=== PATIENT | female | born 1945 | race Caucasian/White ===

== ENCOUNTER 2016-11-10 11:26 | Observation (INO) | payer MEDICARE, OTHER ==
[2016-11-10] MEDS ORDERED: Sodium Chloride 0.9% 1000 ML 1,000 ML IV STA (13:36)
[2016-11-10] MEDS ORDERED: Zofran 4 MG/2 ML VIAL IV PRN (13:36)
[2016-11-10 14:16] LABS: BASOPHIL % 0.3 % (0.0-0.4); Eosinophil % 1.2 % (0.00-5.0); Granulocytes % 64.2 % (36.0-66.0); Lymphocytes % 26.5 % (24.0-44.0); Mean Cell Volume 90.2 fl (78-100); Mean Corpuscular Hemoglobin 29.6 pg (26-32); Mean Platelet Volume 10.6 fl (6-9.5); Monocytes % 7.8 % (0.0-12.0); Platelet Count 288 K/mm3 (150-450); Red Cell Distribution Width 13.7 % (11.5-14.0); White Blood Count 6.9 K/mm3 (4.0-10.5)
[2016-11-10 14:44] LABS: ALKALINE PHOSPHATASE 94 U/L (46-116); ANION GAP 14.1 MEQ/L (5-15); BLOOD UREA NITROGEN 15 mg/dL (9-20); CHLORIDE 107 mEq/L (98-107); Carbon Dioxide 25.6 mEq/L (21-32); Glucose 93 MG/DL (70-110); LIPASE 187 U/L (73-393); Potassium 3.4 mEq/L (3.5-5.1); SGOT/AST 22 U/L (15-37); SGPT/ALT 28 U/L (12-78); SODIUM 143 mEq/L (136-145); Total Protein 7.1 gm/dL (6.4-8.2)
[2016-11-10] MEDS: MORPHINE SULFATE 2 MG INJ IV PRN ×2 (14:46→17:44)
[2016-11-10] MEDS ORDERED: NAPROXEN SODIUM 220 MG PO PRN (15:35)
[2016-11-10] MEDS ORDERED: CLARITIN 10 MG PO PRN (15:35)
[2016-11-10] MEDS ORDERED: Naprosyn 500 MG PO PRN (15:46)
[2016-11-10] MEDS ORDERED: MEDICATION INTERVENTION MC PRN (15:49)
--- NOTE | 2016-11-10 15:58 | XRAY ---
Indication: Pelvic pain. Hysterectomy. Two-dimensional transabdominal pelvic ultrasound was performed. Comparison: None Uterus and ovaries are not seen consistent with patient's surgical history. No suspicious solid/cystic mass or free fluid. Urinary bladder unremarkable with prevoid volume 248 cc and postvoid volume 23 cc. Impression: Negative pelvic ultrasound with total hysterectomy.
[2016-11-10 16:02] LABS: Bilirubin NEGATIVE (NEGATIVE); Blood NEGATIVE Ery/ul (0-5); COMPLETE URINE MICROSCOPIC? NO; Collection Type CLEAN CATCH; Glucose NEGATIVE (NEGATIVE); Leukocyte Esterase NEGATIVE (NEGATIVE)
--- NOTE | 2016-11-10 16:06 | XRAY ---
Indication: Lower abdominal pain. Burning sensation. Multiple contiguous axial images obtained through the abdomen and pelvis using 80 cc Isovue 370 contrast only. Comparison: None Lung bases demonstrates minimal bilateral dependent atelectasis and left base calcified granuloma. Heart is not enlarged. Noncontrasted stomach and bowel loops appear nonobstructed. Mild fluid distended small and large bowel loops with synchronous fluid leveling, ileus versus enterocolitis. Minimal sigmoid diverticulosis. Previous reported appendectomy and hysterectomy. No free fluid/air. A few calcified splenic granulomas. Remaining liver, gallbladder, pancreas, spleen, adrenal glands, kidneys, ureters, bladder, and aorta appear unremarkable. No pathologic retroperitoneal lymphadenopathy. Osseous structures intact with minimal lumbar degenerative changes. Tiny fatty umbilical hernia. Impression: 1. Fluid distended small and large bowel loops with synchronous fluid leveling, ileus versus enterocolitis. 2. Incidental sigmoid diverticulosis and tiny fatty umbilical hernia. 3. Remaining CT abdomen/pelvis with contrast exam is negative. CTDI 13.89
[2016-11-10] MEDS: Sodium Chloride 0.9% 1000 ML 1,000 ML IV SCH ×2 (16:37→23:43)
[2016-11-10] MEDS: Topamax 100 MG PO SCH (21:39)
[2016-11-10] MEDS: MILK OF MAGNESIA 30 ML PO SCH (21:43)
[2016-11-10] MEDS: Cleocin Phosphate IV 300 MG/50 ML*** 300 MG/50 ML IVPB IV SCH (23:44)
[2016-11-11] MEDS: FLAGYL 500 MG IVPB 500 MG/100 ML BAG IV SCH ×5 (00:21→23:52)
[2016-11-11] MEDS: Cleocin Phosphate IV 300 MG/50 ML*** 300 MG/50 ML IVPB IV SCH ×3 (05:08→18:42)
[2016-11-11] MEDS: Topamax 100 MG PO SCH ×2 (09:41→22:04)
[2016-11-11] MEDS ORDERED: Ativan 1 MG PO SCH (10:00)
[2016-11-11] MEDS ORDERED: Miralax Powder 17GM PACKET PO SCH (10:00)
[2016-11-11] MEDS ORDERED: Protonix 40MG Tablet PO SCH (10:00)
[2016-11-11] MEDS ORDERED: CHOLECALCIFEROL PO SCH (10:00)
[2016-11-11] MEDS ORDERED: VIT K2 PO SCH (10:00)
[2016-11-11] MEDS ORDERED: VITAMIN D PO SCH (10:00)
[2016-11-11] MEDS ORDERED: [UNRECOGNIZED DRUG - OTHER] PO SCH (10:00)
--- NOTE | 2016-11-11 14:05 | PCM.NOTE ---
Date and Time: 11/11/16 1404 Subjective Assessment: c/o diarrhea - Review of Systems Constitutional: No Fever, No Chills Eyes: No Symptoms Ears, Nose, & Throat: No Symptoms Respiratory: No Cough, No Short Of Breath Cardiac: No Chest Pain, No Edema, No Syncope Abdominal/Gastrointestinal: Abdominal Pain, Diarrhea, No Nausea, No Vomiting Genitourinary Symptoms: No Dysuria Musculoskeletal: No Back Pain, No Neck Pain Skin: No Rash Neurological: No Dizziness, No Focal Weakness, No Sensory Changes Psychological: No Symptoms Endocrine: No Symptoms Hematologic/Lymphatic: No Symptoms Immunological/Allergic: No Symptoms Objective Exam General Appearance: no apparent distress, alert Neurologic Exam: alert, oriented x 3, cooperative, normal mood/affect, nml cerebellar function, sensation nml, No motor deficits Skin Exam: normal color, warm, dry Eye Exam: PERRL, EOMI, eyes nml inspection Ears, Nose, Throat Exam: normal ENT inspection, pharynx normal, moist mucous membranes Neck Exam: normal inspection, non-tender, supple, full range of motion Respiratory Exam: normal breath sounds, lungs clear, No respiratory distress Cardiovascular Exam: regular rate/rhythm, normal heart sounds Gastrointestinal/Abdomen Exam: soft, No tenderness, No mass Extremity Exam: normal inspection, normal range of motion Back Exam: normal inspection, normal range of motion, No CVA tenderness, No vertebral tenderness Pelvic Exam: deferred Rectal Exam: deferred OBJECTIVE DATA Vital Signs: Vital Signs - 24 hr Temp Pulse Resp BP Pulse Ox 11/11/16 11:24 97.9 F 74 18 101/56 93 L 11/11/16 07:33 97.8 F 66 16 98/55 93 L 11/11/16 04:00 97.6 F 64 12 98/56 94 L 11/11/16 00:31 97.8 F 65 18 89/53 94 L 11/10/16 20:20 98.3 F 82 18 107/55 96 11/10/16 16:00 97.8 F 66 18 134/70 93 L Pain Assessment - Last Documented Pain Intensity 2 Pain Scale Used 0-10 Pain Scale Intake and Output: Intake & Output 11/09/16 11/10/16 11/11/16 11/12/16 11:59 11:59 11:59 11:59 Intake Total 3440 360 Output Total 1500 Balance 1940 360 Weight 64.637 kg Lab Results: Lab Results-Last 24 Hours 11/10/16 11/10/16 11/10/16 Range/Units 13:55 13:55 15:48 WBC 6.9 (4.0-10.5) K/mm3 RBC 4.70 (4.1-5.4) M/mm3 Hgb 13.9 (12.0-16.0) gm/dl Hct 42.4 (35-47) % MCV 90.2 (78-100) fl MCH 29.6 (26-32) pg MCHC 32.8 (32-36) g/dl RDW 13.7 (11.5-14.0) % Plt Count 288 (150-450) K/mm3 MPV 10.6 H (6-9.5) fl Gran % 64.2 (36.0-66.0) % Lymphocytes % 26.5 (24.0-44.0) % Monocytes % 7.8 (0.0-12.0) % Eosinophils % 1.2 (0.00-5.0) % Basophils % 0.3 (0.0-0.4) % Basophils # 0.02 (0-0.4) Sodium 143 (136-145) mEq/L Potassium 3.4 L (3.5-5.1) mEq/L Chloride 107 (98-107) mEq/L Carbon Dioxide 25.6 (21-32) mEq/L Anion Gap 14.1 (5-15) MEQ/L BUN 15 (9-20) mg/dL Creatinine 0.73 (0.55-1.30) mg/dl Estimated GFR > 60 ML/MIN Glucose 93 (70-110) MG/DL Calcium 9.6 (8.5-10.1) mg/dL Total Bilirubin 0.80 (0.2-1.0) mg/dL AST 22 (15-37) U/L ALT 28 (12-78) U/L Alkaline Phosphatase 94 (46-116) U/L Serum Total Protein 7.1 (6.4-8.2) gm/dL Albumin 4.0 (3.4-5.0) g/dL Amylase 50 (25-115) U/L Lipase 187 (73-393) U/L Ur Collection Type CLEAN CATCH Urine Color YELLOW (YELLOW) Urine Appearance CLEAR (CLEAR) Urine pH 8.0 (5-6) Ur Specific [place] 1.005 (1.005-1.025) Urine Protein NEGATIVE (Negative) Urine Ketones NEGATIVE (NEGATIVE) Urine Blood NEGATIVE (0-5) Pankaj/ul Urine Nitrite NEGATIVE (NEGATIVE) Urine Bilirubin NEGATIVE (NEGATIVE) Urine Urobilinogen NORMAL (0-1) mg/dL Ur Leukocyte Esterase NEGATIVE (NEGATIVE) Urine Glucose NEGATIVE (NEGATIVE) mg/dL Specimen Received 11/10/16 1448 Radiology Exams: Radiology Procedures Category Date Time Status ABDOMEN AND PELVIS W CONTRAST [CT] Stat Exams 11/10/16 13:36 Completed PELVIC [US] Stat Exams 11/10/16 Completed Assessment/Plan (1) Diarrhea Current Visit: Yes Status: Acute Qualifiers: Diarrhea type: infectious Qualified Code(s): A09 - Infectious gastroenteritis and colitis, unspecified Code(s): R19.7 - DIARRHEA, UNSPECIFIED (2) Abdominal pain Current Visit: Yes Status: Acute Qualifiers: Abdominal location: generalized Qualified Code(s): R10.84 - Generalized abdominal pain Code(s): R10.9 - UNSPECIFIED ABDOMINAL PAIN
[2016-11-11] MEDS: Sodium Chloride 0.9% 1000 ML 1,000 ML IV SCH (16:15)
[2016-11-11] MEDS: MILK OF MAGNESIA 30 ML PO SCH (22:04)
[2016-11-12] MEDS: Cleocin Phosphate IV 300 MG/50 ML*** 300 MG/50 ML IVPB IV SCH ×2 (00:40→06:32)
[2016-11-12] MEDS: Sodium Chloride 0.9% 1000 ML 1,000 ML IV SCH (02:42)
[2016-11-12 04:31] VITALS: BP 102/57; PULSE 71; O2SAT 93
[2016-11-12] MEDS: FLAGYL 500 MG IVPB 500 MG/100 ML BAG IV SCH (05:35)
--- NOTE | 2016-11-12 07:19 | PCM.DS ---
Discharge Summary Date of Admission: 11/10/16 11:26 Admitting Physician: KINSEY HART Primary Care Provider: KINSEY HART Allergies Allergies amoxicillin trihydrate [From Augmentin] Allergy (Verified 07/05/15 01:27) Penicillins Allergy (Verified 07/05/15 01:27) potassium clavulanate [From Augmentin] Allergy (Verified 07/05/15 01:27) Sulfa (Sulfonamide Antibiotics) Allergy (Verified 07/05/15 01:27) Hospital Summary - Hospital Course Hospital Course: Chief Complaint Diagnosis ABDOMEN PAIN Allergies Allergy/AdvReac Type Severity Reaction Status Date / Time amoxicillin trihydrate Allergy Verified 07/05/15 01:27 [From Augmentin] Penicillins Allergy Verified 07/05/15 01:27 potassium clavulanate Allergy Verified 07/05/15 01:27 [From Augmentin] Sulfa (Sulfonamide Allergy Verified 07/05/15 01:27 Antibiotics) Vital Signs (Last 24 hours) Temp Pulse Resp BP Pulse Ox 11/12/16 04:00 97.8 F 71 19 102/57 93 L 11/11/16 23:51 98.0 F 86 17 94/50 92 L 11/11/16 20:00 98.0 F 80 17 101/55 93 L 11/11/16 15:49 97.5 F 72 18 111/69 94 L 11/11/16 11:24 97.9 F 74 18 101/56 93 L 11/11/16 07:33 97.8 F 66 16 98/55 93 L Home Medications Medication Instructions Recorded Confirmed Last Taken Type Cholecalciferol (Vitd3)/Vit K2 [D3 1 tab PO DAILY 11/10/16 11/10/16 11/10/16 History + K2 Dots 1,000 Units Tab] Loratadine 10 mg [Claritin 10 10 mg PO DAILY PRN 11/10/16 11/10/16 Unknown History mg] Lorazepam 1 mg [Ativan 1 MG] 1 - 2 mg PO DAILY 11/10/16 11/10/16 11/10/16 History Magnesium Hydroxide 30 ml [Milk 30 - 60 ml PO QHS 11/10/16 11/10/16 11/09/16 History of Magnesia 30 ml] Melatonin 3 mg PO QHS 11/10/16 11/10/16 11/09/16 History Naproxen Sodium 220 mg [Aleve 2 tab PO DAILY PRN PRN 11/10/16 11/10/16 Unknown History 220 MG] PANTOPRAZOLE 40 mg Tablet 40 mg PO DAILY 11/10/16 11/10/16 11/10/16 History [Protonix 40MG Tablet] Polyethylene Glycol 3350 17 gm 1 packet PO QAM 11/10/16 11/10/16 11/10/16 History [Miralax Powder 17GM PACKET] Topiramate 50 mg PO BID 11/10/16 11/10/16 11/10/16 History Current Medications Generic Name Dose Route Start Last Admin Trade Name Freq PRN Reason Stop Dose Admin Cholecalciferol 1,000 unit 11/11/16 10:00 11/11/16 09:33 Vitamin D PO 12/11/16 09:59 1,000 unit DAILY NAS Administration Sodium Chloride 1,000 mls @ 100 mls/hr 11/10/16 13:45 11/12/16 02:42 Sodium Chloride 0.9% 1000 Ml IV 12/10/16 13:44 100 mls/hr .Q10H NAS Administration Clindamycin Phosphate 300 mg in 50 mls @ 100 mls/hr 11/11/16 00:00 11/12/16 06:32 Cleocin Phosphate Iv 300 Mg/50 Ml IV 12/11/16 00:00 100 mls/hr Q6HT NAS Administration Metronidazole 500 mg in 100 mls @ 200 mls/hr 11/11/16 00:00 11/12/16 05:35 Flagyl 500 Mg Ivpb IV 12/11/16 00:00 200 mls/hr Q6HT NAS Administration Loratadine 10 mg 11/10/16 15:35 11/11/16 09:33 Claritin 10 Mg PO 12/10/16 15:34 10 mg DAILY PRN Administration ALLERGIES Lorazepam 0 mg 11/11/16 10:00 11/11/16 09:33 Ativan 1 Mg PO 12/11/16 09:59 1 mg DAILY NAS Administration Magnesium Hydroxide 0 ml 11/10/16 22:00 11/11/16 22:04 Milk Of Magnesia 30 Ml PO 12/10/16 21:59 30 ml QHS NAS Administration Morphine Sulfate 2 mg 11/10/16 13:36 11/10/16 17:44 Morphine Sulfate 2 Mg Inj IV 11/15/16 13:35 2 mg Q2H PRN PRN Administration PAIN Naproxen 500 mg 11/10/16 15:46 Naprosyn 500 Mg PO 12/10/16 15:45 QDP PRN Ondansetron HCl 4 mg 11/10/16 13:36 11/10/16 14:46 Zofran 4 Mg/2 Ml Vial IV 12/10/16 13:35 4 mg Q4H PRN PRN Administration NAUSEA/VOMITING Pantoprazole Sodium 40 mg 11/11/16 10:00 11/11/16 09:33 Protonix 40mg Tablet PO 12/11/16 09:59 40 mg DAILY NAS Administration Polyethylene Glycol 17 gm 11/11/16 10:00 11/11/16 09:33 Miralax Powder 17gm Packet PO 12/11/16 09:59 17 gm QAM NAS Administration Topiramate 50 mg 11/10/16 22:00 11/11/16 22:04 Topamax 100 Mg PO 12/10/16 21:59 50 mg BID NAS Administration Discontinued Medications Generic Name Dose Route Start Last Admin Trade Name Freq PRN Reason Stop Dose Admin Sodium Chloride 1,000 mls @ 999 mls/hr 11/10/16 13:36 11/10/16 14:46 Sodium Chloride 0.9% 1000 Ml IV 11/10/16 14:36 999 mls/hr .Q1H1M STA Administration Intake & Output (Last 24 hours) 11/09/16 11/10/16 11/11/16 11/12/16 11:59 11:59 11:59 11:59 Intake Total 3440 4269 Output Total 1500 Balance 1940 4269 Weight 64.637 kg Microbiology Results (Last 24 hours) 11/11/16 15:35 Stool Stool Culture - Pending 11/10/16 15:48 Clean Catch Midstream Urine Culture - Preliminary NO GROWTH TO DATE Laboratory Results (Last 24 hours) 11/11/16 15:35 Stl C. diff Tox B Gene NEGATIVE C.difficile 027-NAP1-B1 PRESUMPTIVE NEGATIVE Orders (Last 24 hours) Category Date Time Status [place] Diet Diet 11/11/16 Dinner Active C.Difficile by PCR Routine Lab 11/11/16 15:35 Completed OVA & PARASITE Routine Lab 11/11/16 15:35 Stop Req Stool Culture [MR] Routine Lab 11/11/16 15:35 Received Cholecalciferol (Vitamin D3) [Vitamin D] Med 11/11/16 10:00 Active 1,000 unit PO DAILY Lorazepam 1 mg [Ativan 1 MG] Med 11/11/16 10:00 Active 0 mg PO DAILY PANTOPRAZOLE 40 mg Tablet [Protonix 40MG Tablet] Med 11/11/16 10:00 Active 40 mg PO DAILY Polyethylene Glycol 3350 17 gm [Miralax Powder 17GM Med 11/11/16 10:00 Active PACKET] 17 gm PO QAM Patient Care Notes (Last 24 hours) 11/11/16 20:37 Respiratory Note by Katie Mulligan PT WEARS A CPAP AT NIGHT, SO I WENT IN TO TALK TO THE PATIENT ABOUT HER CPAP. PT REFUSED TO WEAR ONE WHILE HERE IN THE HOSPITAL, AND SHE STATES THAT SHE ONLY USES A CPAP AT HOME "FOR AWHILE" EACH NIGHT. PT VERBALIZED UNDERSTANDING THAT SHE COULD CALL RESPIRATORY AT ANY TIME THROUGH THE NIGHT IF SHE CHANGED HER MIND. Initialized on 11/11/16 20:37 - END OF NOTE - Vitals & Intake/Output Vital Signs: Vital Signs Temperature 97.8 F 11/12/16 04:00 Pulse Rate 71 11/12/16 04:00 Respiratory Rate 19 11/12/16 04:00 Blood Pressure 102/57 11/12/16 04:00 O2 Sat by Pulse Oximetry 93 L 11/12/16 04:00 Intake & Output: Intake & Output 11/09/16 11/10/16 11/11/16 11/12/16 11:59 11:59 11:59 11:59 Intake Total 3440 4269 Output Total 1500 Balance 1940 4269 Weight 64.637 kg - Lab Result Diagrams: 11/10/16 13:55 11/10/16 13:55 Lab Results-Last 24 Hrs: Lab Results-Last 24 Hours 11/11/16 Range/Units 15:35 Stl C. diff Tox B Gene NEGATIVE (NEGATIVE) C.difficile 027-NAP1-B1 PRESUMPTIVE NEGATIVE (NEGATIVE) Micro Results-Entire Visit: Microbiology 11/10/16 15:48 Urine Culture - Preliminary Clean Catch Midstream NO GROWTH TO DATE - Radiology Exams Ordered Rad Exams-Entire Visit: Radiology Procedures Category Date Time Status ABDOMEN AND PELVIS W CONTRAST [CT] Stat Exams 11/10/16 13:36 Completed Discharge Exam General Appearance: no apparent distress, alert Neurologic Exam: alert, oriented x 3, cooperative, normal mood/affect, nml cerebellar function, sensation nml, No motor deficits Skin Exam: normal color, warm, dry Eye Exam: PERRL, EOMI, eyes nml inspection Ears, Nose, Throat Exam: normal ENT inspection, pharynx normal, moist mucous membranes Neck Exam: normal inspection, non-tender, supple, full range of motion Respiratory Exam: normal breath sounds, lungs clear, No respiratory distress Cardiovascular Exam: regular rate/rhythm, normal heart sounds Gastrointestinal/Abdomen Exam: soft, No tenderness, No mass Extremity Exam: normal inspection, normal range of motion Back Exam: normal inspection, normal range of motion, No CVA tenderness, No vertebral tenderness Pelvic Exam: deferred Rectal Exam: deferred Final Diagnosis/Problem List - Final Discharge Diagnosis/Problem (1) Enterocolitis Current Visit: Yes Status: Resolved Assessment & Plan: Last Vital Signs Temp 97.8 F 11/12/16 04:00 Pulse 71 11/12/16 04:00 Resp 19 11/12/16 04:00 BP 102/57 11/12/16 04:00 Pulse Ox 93 L 11/12/16 04:00 Allergies amoxicillin trihydrate [From Augmentin] Allergy (Verified 07/05/15 01:27) Penicillins Allergy (Verified 07/05/15 01:27) potassium clavulanate [From Augmentin] Allergy (Verified 07/05/15 01:27) Sulfa (Sulfonamide Antibiotics) Allergy (Verified 07/05/15 01:27) Active Medications Cholecalciferol (Vitamin D) 1,000 unit PO DAILY NAS Stop: 12/11/16 09:59 Last Admin: 11/11/16 09:33 Dose: 1,000 unit Sodium Chloride (Sodium Chloride 0.9% 1000 Ml) 1,000 mls @ 100 mls/hr IV .Q10H NAS Stop: 12/10/16 13:44 Last Admin: 11/12/16 02:42 Dose: 100 mls/hr Clindamycin Phosphate (Cleocin Phosphate Iv 300 Mg/50 Ml) 300 mg in 50 mls @ 100 mls/hr IV Q6HT [facility] [place] Stop: 12/11/16 00:00 Last Admin: 11/12/16 06:32 Dose: 100 mls/hr Metronidazole (Flagyl 500 Mg Ivpb) 500 mg in 100 mls @ 200 mls/hr IV Q6HT [facility] [place] Stop: 12/11/16 00:00 Last Admin: 11/12/16 05:35 Dose: 200 mls/hr Loratadine (Claritin 10 Mg) 10 mg PO DAILY PRN PRN Reason: ALLERGIES Stop: 12/10/16 15:34 Last Admin: 11/11/16 09:33 Dose: 10 mg Lorazepam (Ativan 1 Mg) 0 mg PO DAILY [facility] [place] Stop: 12/11/16 09:59 Last Admin: 11/11/16 09:33 Dose: 1 mg Magnesium Hydroxide (Milk Of Magnesia 30 Ml) 0 ml PO QHS [facility] [place] Stop: 12/10/16 21:59 Last Admin: 11/11/16 22:04 Dose: 30 ml Morphine Sulfate (Morphine Sulfate 2 Mg Inj) 2 mg IV Q2H PRN PRN PRN Reason: PAIN Stop: 11/15/16 13:35 Last Admin: 11/10/16 17:44 Dose: 2 mg Naproxen (Naprosyn 500 Mg) 500 mg PO QDP PRN Stop: 12/10/16 15:45 Ondansetron HCl (Zofran 4 Mg/2 Ml Vial) 4 mg IV Q4H PRN PRN PRN Reason: NAUSEA/VOMITING Stop: 12/10/16 13:35 Last Admin: 11/10/16 14:46 Dose: 4 mg Pantoprazole Sodium (Protonix 40mg Tablet) 40 mg PO DAILY [facility] [place] Stop: 12/11/16 09:59 Last Admin: 11/11/16 09:33 Dose: 40 mg Polyethylene Glycol (Miralax Powder 17gm Packet) 17 gm PO QAM [facility] [place] Stop: 12/11/16 09:59 Last Admin: 11/11/16 09:33 Dose: 17 gm Topiramate (Topamax 100 Mg) 50 mg PO BID NAS Stop: 12/10/16 21:59 Last Admin: 11/11/16 22:04 Dose: 50 mg Intake & Output 11/11/16 11/12/16 11:59 11:59 Intake Total 3440 4269 Output Total 1500 Balance 1940 4269 Orders 11/11/16 10:00 Cholecalciferol (Vitamin D3) [Vitamin D] 1,000 unit PO DAILY Lorazepam 1 mg [Ativan 1 MG] 0 mg PO DAILY PANTOPRAZOLE 40 mg Tablet [Protonix 40MG Tablet] 40 mg PO DAILY Polyethylene Glycol 3350 17 gm [Miralax Powder 17GM PACKET] 17 gm PO QAM 11/11/16 15:35 OVA & PARASITE Routine Stool Culture [MR] Routine 11/11/16 Dinner [place] Diet Lab Tests 11/11/16 15:35 Stl C. diff Tox B Gene NEGATIVE C.difficile 027-NAP1-B1 PRESUMPTIVE NEGATIVE Microbiology 11/10/16 15:48 Clean Catch Midstream Urine Culture - Preliminary NO GROWTH TO DATE (2) Diarrhea Current Visit: Yes Status: Resolved (3) Abdominal pain Current Visit: Yes Status: Resolved - Discharge Discharge Date: 11/12/16 Disposition: Home, Self-Care Condition: Stable Prescriptions: New Clindamycin HCl 300 mg PO QID #30 capsule Continue Polyethylene Glycol 3350 17 gm [Miralax Powder 17GM PACKET] 1 packet PO QAM Magnesium Hydroxide 30 ml [Milk of Magnesia 30 ml] 30 - 60 ml PO QHS Loratadine 10 mg [Claritin 10 mg] 10 mg PO DAILY PRN PRN Reason: Allergies Cholecalciferol (Vitd3)/Vit K2 [D3 + K2 Dots 1,000 Units Tab] 1 tab PO DAILY PANTOPRAZOLE 40 mg Tablet [Protonix 40MG Tablet] 40 mg PO DAILY Topiramate 50 mg PO BID Melatonin 3 mg PO QHS Lorazepam 1 mg [Ativan 1 MG] 1 - 2 mg PO DAILY Naproxen Sodium 220 mg [Aleve 220 MG] 2 tab PO DAILY PRN PRN PRN Reason: arthritis Follow up with: KINSEY HART MD [Primary Care Provider] - 1 Week
[2016-11-14 13:29] LABS: Giardia Antigen EIA Negative (Negative)
== END 2016-11-12 08:15 | disposition home or self-care (01) ==
LOC: MED SURG 11:26
PROVIDERS: ADMIT General Practice; ATTEND General Practice
DX: K52.9 Noninfective gastroenteritis and colitis, unspecified (principal); G47.30 Sleep apnea, unspecified; K21.9 Gastro-esophageal reflux disease without esophagitis; E03.9 Hypothyroidism, unspecified; F41.9 Anxiety disorder, unspecified; M79.7 Fibromyalgia; Z79.899 Other long term (current) drug therapy
CPT/HCPCS: 36415; 74177; 76856; 80053; 81002; 82150; 83605; 83690; 85025; 87045; 87046; 87086; 87177; 87209; 87335; 87493; G0378; J2270; J2405; A9270-GY

== ENCOUNTER 2017-10-29 15:36 | Emergency (ER) | payer MEDICARE, OTHER ==
[2017-10-29 15:54] VITALS: O2SAT 98
--- NOTE | 2017-10-29 16:09 | ERPHSYRPT ---
- History of Present Illness Time Seen by Provider: 10/29/17 16:00 Source: patient Exam Limitations: no limitations Patient Subjective Stated Complaint: pt reports lower back pain and left leg pain for approx 2 weeks, states approx 2 weeks ago she rode her exercise bike for approx 1 hour and began to have problems after that. reports history of sciatic pain. Triage Nursing Assessment: pt is aox3, pupils perrl, pt afebrile, resps easy and non labored, skin pink warm dry. pain localized to the left lower back that radiates down the front and back of the left leg. pain is increased with movement. pt ambulated to the treatment room with a slow gait. pt sensation intact to bilateral lower extremities. Physician History: 72 y/o white female with a h/o sciatica in the past presents with left back pain that radiates in a shooting fashion down left buttock and leg. pt states pain started 2 weeks ago after riding her bike. today pt was on the floor doing work and when she attempted to get up pain worsened. she denies fall or trauma. Timing/Duration: week(s) (2) Method of Injury: bending, twisted, other (riding bike) Back Pain Location: paraspinous muscles Back Pain Radiation: buttocks, upper legs (left) Severity of Pain-Max: moderate Severity of Pain-Current: moderate Modifying Factors: Improves With: movement (worsens) Associated Symptoms: lower back pain (left side), muscle spasms, No fever, No chills, No urinary incontinence, No loss of bowel control, No constipation, No nausea, No vomiting, No sensory/motor loss, No tingling in legs/feet Allergies/Adverse Reactions: amoxicillin trihydrate [From Augmentin] Allergy (Verified 10/29/17 15:54) Penicillins Allergy (Verified 10/29/17 15:54) potassium clavulanate [From Augmentin] Allergy (Verified 10/29/17 15:54) Sulfa (Sulfonamide Antibiotics) Allergy (Verified 10/29/17 15:54) Home Medications: Cholecalciferol (Vitd3)/Vit K2 [D3 + K2 Dots 1,000 Units Tab] 1 tab PO DAILY [History] Lorazepam 1 mg [Ativan 1 MG] 1 - 2 mg PO DAILY 11/10/16 [History] Magnesium Hydroxide 30 ml [Milk of Magnesia 30 ml] 30 - 60 ml PO QHS 11/10 [History] Polyethylene Glycol 3350 17 gm [Miralax Powder 17GM PACKET] 1 packet PO QAM 11/10/16 [History] Levothyroxine Sodium 25 Mcg [Synthroid 25 Mcg] 25 mcg PO DAILY 10/29/17 [ History] Mirtazapine 30 mg PO DAILY 10/29/17 [History] Hx Tetanus, Diphtheria Vaccination/Date Given: Yes Hx Influenza Vaccination/Date Given: Yes Hx Pneumococcal Vaccination/Date Given: Yes Immunizations Up to Date: Yes - Review of Systems Constitutional: No Symptoms, No Fever, No Chills Eyes: No Symptoms, No Discharge, No Eye Pain Ears, Nose, & Throat: No Symptoms, No Ear Pain, No Ear Discharge Respiratory: No Symptoms, No Cough, No Dyspnea, No Stridor, No Wheezing Cardiac: No Symptoms, No Chest Pain, No Palpitations, No Syncope Abdominal/Gastrointestinal: No Symptoms, No Abdominal Pain, No Nausea, No Vomiting, No Diarrhea Genitourinary Symptoms: No Symptoms, No Dysuria, No Frequency, No Hematuria Musculoskeletal: Back Pain Skin: No Symptoms Neurological: No Symptoms Psychological: No Symptoms Endocrine: No Symptoms Hematologic/Lymphatic: No Symptoms Immunological/Allergic: No Symptoms All Other Systems: Reviewed and Negative - Past Medical History Pertinent Past Medical History: Yes Neurological History: No Pertinent History ENT History: Cataracts Cardiac History: No Pertinent History Respiratory History: Asthma Endocrine Medical History: No Pertinent History Musculoskeletal History: Osteoarthritis GI Medical History: No Pertinent History History: No Pertinent History Psycho-Social History: Anxiety Female Reproductive Disorders: No Pertinent History Other Medical History: immune deficiency - Past Surgical History Past Surgical History: Yes Neuro Surgical History: No Pertinent History Cardiac: No Pertinent History Gastrointestinal: Appendectomy Musculoskeletal: No Pertinent History Female Surgical History: Hysterectomy - Social History Smoking Status: Never smoker Exposure to second hand smoke: No Drug Use: none Patient Lives Alone: Yes - Female History Hx Now: No - Nursing Vital Signs Nursing Vital Signs: Initial Vital Signs Temperature 98.7 F 10/29/17 15:44 Pulse Rate 89 10/29/17 15:44 Respiratory Rate 18 10/29/17 15:44 Blood Pressure 143/95 10/29/17 15:44 O2 Sat by Pulse Oximetry 98 10/29/17 15:44 Pain Scale Pain Intensity [Back] 7 Pain Intensity 7 - Physical Exam General Appearance: mild distress, alert, anxiety Eye Exam: PERRL/EOMI, eyes nml inspection Ears, Nose, Throat Exam: normal ENT inspection Neck Exam: normal inspection, non-tender, supple, full range of motion, No meningismus, No lymphadenopathy Respiratory Exam: normal breath sounds, lungs clear, airway intact, No chest tenderness, No respiratory distress, No accessory muscle use, No wheezing, No stridor Cardiovascular Exam: regular rate/rhythm, normal heart sounds, normal peripheral pulses Gastrointestinal Exam: soft, No tenderness Pelvic Exam: not done Rectal Exam: not done Back Exam: normal inspection, normal range of motion, muscle spasm (left lumbar region), No vertebral tenderness, No decreased range of motion Extremity Exam: normal inspection, normal range of motion, pelvis stable Neurologic Exam: alert, oriented x 3, cooperative, mounter smoking pipe II-XII nml as tested, normal mood/affect, nml cerebellar function, sensation nml, No motor deficits, No disoriented, No confusion Skin Exam: normal color, warm, dry Lymphatic Exam: No adenopathy SpO2 Interpretation: normal SpO2: 98 Oxygen Delivery: Room Air - Course Nursing assessment & vital signs reviewed: Yes Ordered Tests: Medication Summary Discontinued Medications Generic Name Dose Route Start Last Admin Trade Name Agustínq PRN Reason Stop Dose Admin Hydrocodone Bitart/Acetaminophen 1 tab 10/29/17 16:16 [place] 5/325 Mg PO 10/29/17 16:17 STAT ONE Diazepam 2.5 mg 10/29/17 16:18 Valium 10 Mg/2 Ml Syringe IM 10/29/17 16:19 STAT ONE Methylprednisolone Sodium Succinate 125 mg 10/29/17 16:18 Solu-Medrol 125 Mg IM 10/29/17 16:19 STAT ONE - Progress Progress: improved Counseled pt/family regarding: diagnosis, need for follow-up - Departure Time of Disposition: 16:25 Departure Disposition: Home Clinical Impression: Back pain, Sciatica Condition: Stable Critical Care Time: No Referrals: KINSEY HART MD [Primary Care Provider] - Additional Instructions: follow up with your primary doctor for persistent symptoms. take your medications as prescribed Prescriptions: Hydrocodone/APAP 5/325 [[place] 5/325 mg] 1 each PO Q12H PRN PRN #6 tablet MDD 2 PRN Reason: Pain Cyclobenzaprine HCl 10 mg [Flexeril 10 MG] 10 mg PO BID #10 tablet Prednisone 10 mg [Deltasone 10 mg] 10 mg PO BID #8 tablet
[2017-10-29] MEDS ORDERED: NORCO 5/325 MG PO ONE (16:16)
[2017-10-29] MEDS ORDERED: solu-MEDROL 125 MG IM ONE (16:18)
[2017-10-29] MEDS ORDERED: VALIUM 10 MG/2 ML SYRINGE IM ONE (16:18)
[2017-10-29] MEDS ORDERED: NORCO 5/325 MG ONE (16:25)
[2017-10-29] MEDS ORDERED: solu-MEDROL 125 MG ONE (16:25)
[2017-10-29] MEDS ORDERED: Ativan 2 MG/1 ML VIAL IM ONE (16:30)
[2017-10-29] MEDS ORDERED: Ativan 2 MG/1 ML VIAL ONE (16:45)
[2017-10-29 17:32] VITALS: BP 119/80; PULSE 77
== END 2017-10-29 17:31 | disposition home or self-care (01) ==
LOC: ED 15:36
DX: M54.9 Dorsalgia, unspecified (principal); M54.32 Sciatica, left side; Z79.899 Other long term (current) drug therapy
CPT/HCPCS: 96372; 99284; J2060; J2930; A9270-GY

== ENCOUNTER 2018-04-04 11:27 | Emergency (ER) | payer MEDICARE, OTHER ==
[2018-04-04] MEDS ORDERED: DUONEB 0.5-3 MG/3 ml Neb IH ONE ×2 (11:38→11:42)
--- NOTE | 2018-04-04 11:39 | ERPHSYRPT ---
- History of Present Illness Time Seen by Provider: 04/04/18 11:39 Source: patient Exam Limitations: no limitations Physician History: 72 y/o white female presents with soa that was mild last pm, slept well. then this am, sx of soa worsened. no cp, no abd pain. pt does have a mild sore throat. pt started adipex for weight loss 1 week ago Timing/Duration: day(s) (1) Activities at Onset: none Severity of Dyspnea-Max: mild Severity of Dyspnea-Current: mild Possible Cause: no prior episodes Modifying Factors: Improves With: nothing Associated Symptoms: anxiety, cough Allergies/Adverse Reactions: amoxicillin trihydrate [From Augmentin] Allergy (Verified 04/04/18 11:41) Penicillins Allergy (Verified 04/04/18 11:41) potassium clavulanate [From Augmentin] Allergy (Verified 04/04/18 11:41) Sulfa (Sulfonamide Antibiotics) Allergy (Verified 04/04/18 11:41) Home Medications: Cholecalciferol (Vitd3)/Vit K2 [D3 + K2 Dots 1,000 Units Tab] 1 tab PO DAILY [History] Lorazepam 1 mg [Ativan 1 MG] 1 - 2 mg PO DAILY 11/10/16 [History] Magnesium Hydroxide 30 ml [Milk of Magnesia 30 ml] 30 - 60 ml PO QHS 11/10 [History] Polyethylene Glycol 3350 17 gm [Miralax Powder 17GM PACKET] 1 packet PO QAM 11/10/16 [History] Levothyroxine Sodium 25 Mcg [Synthroid 25 Mcg] 25 mcg PO DAILY 10/29/17 [ History] Mirtazapine 30 mg PO DAILY 10/29/17 [History] Hx Tetanus, Diphtheria Vaccination/Date Given: Yes Hx Influenza Vaccination/Date Given: Yes Hx Pneumococcal Vaccination/Date Given: Yes - Review of Systems Constitutional: No Symptoms Eyes: No Symptoms Ears, Nose, & Throat: No Symptoms Respiratory: Dyspnea (mild) Cardiac: No Symptoms Abdominal/Gastrointestinal: No Symptoms Genitourinary Symptoms: No Symptoms Musculoskeletal: No Symptoms Skin: No Symptoms Neurological: No Symptoms Psychological: No Symptoms Endocrine: No Symptoms Hematologic/Lymphatic: No Symptoms Immunological/Allergic: No Symptoms All Other Systems: Reviewed and Negative - Past Medical History Pertinent Past Medical History: Yes Neurological History: No Pertinent History ENT History: Cataracts Cardiac History: No Pertinent History Respiratory History: Asthma Endocrine Medical History: Hypothyroidism Musculoskeletal History: No Pertinent History GI Medical History: No Pertinent History History: No Pertinent History Psycho-Social History: Anxiety Female Reproductive Disorders: No Pertinent History Other Medical History: immune deficiency - Past Surgical History Past Surgical History: Yes Neuro Surgical History: No Pertinent History Cardiac: No Pertinent History Gastrointestinal: Appendectomy Musculoskeletal: No Pertinent History Female Surgical History: Hysterectomy - Social History Smoking Status: Never smoker Exposure to second hand smoke: No Drug Use: none Patient Lives Alone: Yes - Nursing Vital Signs Nursing Vital Signs: Initial Vital Signs Pulse Rate 121 H 04/04/18 11:28 Respiratory Rate 22 04/04/18 11:28 Blood Pressure 123/83 04/04/18 11:28 O2 Sat by Pulse Oximetry 99 04/04/18 11:28 Pain Scale Pain Intensity 0 - Physical Exam General Appearance: mild distress, alert, anxiety Eye Exam: PERRL/EOMI Ears, Nose, Throat Exam: hearing grossly normal Neck Exam: normal inspection, non-tender, supple, full range of motion Respiratory Exam: normal breath sounds, lungs clear, airway intact, No chest tenderness, No respiratory distress, No accessory muscle use, No rhonchi, No wheezing, No stridor Cardiovascular/Chest Exam: tachycardia (mild) Abdominal/Gastrointestinal Exam: soft, normal bowel sounds, No tenderness Rectal Exam: not done Extremity Exam: non-tender, normal range of motion, normal inspection Neurologic Exam: alert, oriented x 3, cooperative Skin Exam: normal color, warm Lymphatic Exam: No adenopathy SpO2 Interpretation: normal O2 Delivery: Room Air - Course Nursing assessment & vital signs reviewed: Yes EKG Interpreted by Me: RATE (105), Sinus Tach, NORMAL AXIS, NORMAL INTERVALS, NORMAL QRS, Other (no comparison ekg) Ordered Tests: Active Orders 24 hr Category Date Time Status Raw Material Handler STAT Care 04/04/18 11:47 Active EKG-ER Only STAT Care 04/04/18 11:45 Active IV Insertion STAT Care 04/04/18 11:45 Active Pulse Oximetry (ED) STAT Care 04/04/18 11:45 Active CHEST 1 VIEW (PORTABLE) Stat Exams 04/04/18 11:46 Completed CBC W DIFF Stat Lab 04/04/18 11:56 Completed CMP Stat Lab 04/04/18 11:56 Completed D-DIMER QUANTITATION Stat Lab 04/04/18 11:56 Completed NT PRO BNP Stat Lab 04/04/18 11:56 Completed T4 (Thyroxine) Stat Lab 04/04/18 12:03 Completed TROPONIN Q3H Lab 04/04/18 11:56 Completed TROPONIN Q3H Lab 04/04/18 15:00 Ordered TROPONIN Q3H Lab 04/04/18 18:00 Ordered TROPONIN Q3H Lab 04/04/18 21:00 Ordered TROPONIN Q3H Lab 04/05/18 00:00 Ordered TSH, 3RD Generation Stat Lab 04/04/18 12:03 Completed Peak Expiratory Flow Rate DAILY RT 04/04/18 07:00 Active Respiratory Therapy Assessment DAILY RT 04/05/18 07:00 Active Medication Summary Discontinued Medications Generic Name Dose Route Start Last Admin Trade Name Freq PRN Reason Stop Dose Admin Albuterol/Ipratropium Confirm 04/04/18 11:38 Duoneb 0.5-3 Mg/3 Ml Neb Administered 04/04/18 11:39 Dose 3 ml IH .STK-MED ONE Albuterol/Ipratropium 3 ml 04/04/18 11:42 04/04/18 11:47 Duoneb 0.5-3 Mg/3 Ml Neb IH 04/04/18 11:43 3 ml STAT ONE Administration Levofloxacin 500 mg 04/04/18 13:33 Levofloxacin 250mg Tablet PO 04/04/18 13:34 STAT ONE Lab/Rad Data: Laboratory Result Diagrams 04/04/18 11:56 04/04/18 11:56 Laboratory Results 04/04/18 04/04/18 04/04/18 Range/Units Unknown 12:03 12:00 WBC (4.0-10.5) K/mm3 RBC (4.1-5.4) M/mm3 Hgb (12.0-16.0) gm/dl Hct (35-47) % MCV (78-100) fl MCH (26-32) pg MCHC (32-36) g/dl RDW (11.5-14.0) % Plt Count (150-450) K/mm3 MPV (6-9.5) fl Gran % (36.0-66.0) % Eos # (Auto) (0-0.5) Absolute Lymphs (auto) (1.0-4.6) Absolute Monos (auto) (0.0-1.3) Lymphocytes % (24.0-44.0) % Monocytes % (0.0-12.0) % Eosinophils % (0.00-5.0) % Basophils % (0.0-0.4) % Absolute Granulocytes (1.4-6.9) Basophils # (0-0.4) D-Dimer (215-500) ng/mL Sodium (137-145) mmol/L Potassium (3.5-5.1) mmol/L Chloride (98-107) mmol/L Carbon Dioxide (22-30) mmol/L Anion Gap (5-15) MEQ/L BUN (7-17) mg/dL Creatinine (0.52-1.04) mg/dL Estimated GFR ML/MIN Glucose (74-106) mg/dL Calcium (8.4-10.2) mg/dL Total Bilirubin (0.2-1.3) mg/dL AST (14-36) U/L ALT (0-35) U/L Alkaline Phosphatase (38-126) U/L Troponin I (0.000-0.034) ng/mL NT-Pro-B Natriuret Pep (0-900) pg/mL Serum Total Protein (6.3-8.2) g/dL Albumin (3.5-5.0) g/dL Thyroxine (T4) 11.1 H (5.53-10.96) ug/dL TSH 3rd Generation 0.268 L (0.47-4.68) mIU/L Influenza Type A Ag NEGATIVE (NEGATIVE) Influenza Type B Ag NEGATIVE (NEGATIVE) RSV (PCR) NEGATIVE (Negative) Group A Strep Antibody NEGATIVE (NEGATIVE) 04/04/18 04/04/18 04/04/18 Range/Units 11:56 11:56 11:56 WBC (4.0-10.5) K/mm3 RBC (4.1-5.4) M/mm3 Hgb (12.0-16.0) gm/dl Hct (35-47) % MCV (78-100) fl MCH (26-32) pg MCHC (32-36) g/dl RDW (11.5-14.0) % Plt Count (150-450) K/mm3 MPV (6-9.5) fl Gran % (36.0-66.0) % Eos # (Auto) (0-0.5) Absolute Lymphs (auto) (1.0-4.6) Absolute Monos (auto) (0.0-1.3) Lymphocytes % (24.0-44.0) % Monocytes % (0.0-12.0) % Eosinophils % (0.00-5.0) % Basophils % (0.0-0.4) % Absolute Granulocytes (1.4-6.9) Basophils # (0-0.4) D-Dimer < 201 L (215-500) ng/mL Sodium 134 L (137-145) mmol/L Potassium 3.8 (3.5-5.1) mmol/L Chloride 98 (98-107) mmol/L Carbon Dioxide 23 (22-30) mmol/L Anion Gap 17.1 H (5-15) MEQ/L BUN 15 (7-17) mg/dL Creatinine 1.10 H (0.52-1.04) mg/dL Estimated GFR 52.2 ML/MIN Glucose 166 H (74-106) mg/dL Calcium 9.5 (8.4-10.2) mg/dL Total Bilirubin 0.70 (0.2-1.3) mg/dL AST 37 H (14-36) U/L ALT 25 (0-35) U/L Alkaline Phosphatase 88 (38-126) U/L Troponin I < 0.012 (0.000-0.034) ng/mL NT-Pro-B Natriuret Pep 22.1 (0-900) pg/mL Serum Total Protein 7.7 (6.3-8.2) g/dL Albumin 4.5 (3.5-5.0) g/dL Thyroxine (T4) (5.53-10.96) ug/dL TSH 3rd Generation (0.47-4.68) mIU/L Influenza Type A Ag (NEGATIVE) Influenza Type B Ag (NEGATIVE) RSV (PCR) (Negative) Group A Strep Antibody (NEGATIVE) 04/04/18 Range/Units 11:56 WBC 5.2 (4.0-10.5) K/mm3 RBC 4.67 (4.1-5.4) M/mm3 Hgb 14.2 (12.0-16.0) gm/dl Hct 42.3 (35-47) % MCV 90.6 (78-100) fl MCH 30.4 (26-32) pg MCHC 33.6 (32-36) g/dl RDW 12.9 (11.5-14.0) % Plt Count 245 (150-450) K/mm3 MPV 11.4 H (6-9.5) fl Gran % 57.9 (36.0-66.0) % Eos # (Auto) 0.04 (0-0.5) Absolute Lymphs (auto) 1.64 (1.0-4.6) Absolute Monos (auto) 0.49 (0.0-1.3) Lymphocytes % 31.5 (24.0-44.0) % Monocytes % 9.4 (0.0-12.0) % Eosinophils % 0.8 (0.00-5.0) % Basophils % 0.4 (0.0-0.4) % Absolute Granulocytes 3.01 (1.4-6.9) Basophils # 0.02 (0-0.4) D-Dimer (215-500) ng/mL Sodium (137-145) mmol/L Potassium (3.5-5.1) mmol/L Chloride (98-107) mmol/L Carbon Dioxide (22-30) mmol/L Anion Gap (5-15) MEQ/L BUN (7-17) mg/dL Creatinine (0.52-1.04) mg/dL Estimated GFR ML/MIN Glucose (74-106) mg/dL Calcium (8.4-10.2) mg/dL Total Bilirubin (0.2-1.3) mg/dL AST (14-36) U/L ALT (0-35) U/L Alkaline Phosphatase (38-126) U/L Troponin I (0.000-0.034) ng/mL NT-Pro-B Natriuret Pep (0-900) pg/mL Serum Total Protein (6.3-8.2) g/dL Albumin (3.5-5.0) g/dL Thyroxine (T4) (5.53-10.96) ug/dL TSH 3rd Generation (0.47-4.68) mIU/L Influenza Type A Ag (NEGATIVE) Influenza Type B Ag (NEGATIVE) RSV (PCR) (Negative) Group A Strep Antibody (NEGATIVE) - Progress Progress: improved, re-examined Air Movement: good Progress Note: 04/04/18 13:31 cxr-right lung patchy infiltrate Blood Culture(s) Obtained: No Antibiotics given: Yes Counseled pt/family regarding: lab results, diagnosis, need for follow-up, rad results - Departure Time of Disposition: 13:38 Departure Disposition: Home Clinical Impression: Infiltrate of lower lobe of right lung present on imaging study, Hyperthyroidism Condition: Stable Critical Care Time: No Referrals: KINSEY HART MD [Primary Care Provider] - Additional Instructions: take antibiotics as prescribed. follow up with dr. hart for adipex and thyroid medication instructions. Prescriptions: Levofloxacin [Levaquin 500 MG Tablet] 500 mg PO DAILY #7 tablet
[2018-04-04 11:55] LABS: BASOPHIL % 0.4 % (0.0-0.4); Basophil (Absolute #) 0.02 (0-0.4); Eosinophil % 0.8 % (0.00-5.0); Eosinophil (Absolute #) 0.04 (0-0.5); Granulocyte Absolute (ANC) 3.01 (1.4-6.9); Granulocytes % 57.9 % (36.0-66.0); Hematocrit 42.3 % (35-47); Hemoglobin 14.2 gm/dl (12.0-16.0); Lymphocyte (Absolute #) 1.64 (1.0-4.6); Lymphocytes % 31.5 % (24.0-44.0); Mean Cell Volume 90.6 fl (78-100); Mean Corpuscular Hemoglobin 30.4 pg (26-32); Mean Corpuscular Hgb Concent. 33.6 g/dl (32-36); Mean Platelet Volume 11.4 fl (6-9.5); Monocyte (Absolute #) 0.49 (0.0-1.3); Monocytes % 9.4 % (0.0-12.0); Platelet Count 245 K/mm3 (150-450); Red Blood Count 4.67 M/mm3 (4.1-5.4); Red Cell Distribution Width 12.9 % (11.5-14.0); White Blood Count 5.2 K/mm3 (4.0-10.5)
--- NOTE | 2018-04-04 12:11 | XRAY ---
Indication: Cough and short of breath. Flu symptoms. Comparison: June 09, 2014. Portable chest again hyperinflated with new subtle patchy right lung interstitial alveolar opacities. Remaining heart and lungs unremarkable. Bony thorax intact.
[2018-04-04 12:14] LABS: ALBUMIN 4.5 g/dL (3.5-5.0); ANION GAP 17.1 MEQ/L (5-15); BILIRUBIN,TOTAL 0.7 mg/dL (0.2-1.3); Calcium 9.5 mg/dL (8.4-10.2); Creatinine 1 1.1 mg/dL (0.52-1.04); NT PRO BNP 22.1 pg/mL (0-900); Potassium 3.8 mmol/L (3.5-5.1); Total Protein 7.7 g/dL (6.3-8.2)
[2018-04-04 12:56] LABS: TSH, 3RD Generation 0.268 mIU/L (0.47-4.68)
[2018-04-04 13:19] LABS: INFLUENZA A NEGATIVE (NEGATIVE); INFLUENZA B NEGATIVE (NEGATIVE); RESPIRATORY SYNCTIAL VIRUS NEGATIVE (Negative)
[2018-04-04] MEDS ORDERED: Levofloxacin 250MG Tablet PO ONE (13:33)
[2018-04-04] MEDS ORDERED: Levofloxacin 500 MG Tablet ONE (13:43)
[2018-04-04 14:24] VITALS: BP 114/79; PULSE 98; O2SAT 99
== END 2018-04-04 14:24 | disposition home or self-care (01) ==
LOC: ED 11:27
DX: R91.8 Other nonspecific abnormal finding of lung field (principal); E05.90 Thyrotoxicosis, unspecified without thyrotoxic crisis or storm; R06.02 Shortness of breath; Z79.899 Other long term (current) drug therapy
CPT/HCPCS: 36000; 36415; 71045; 80053; 83880; 84436; 84443; 84484; 85025; 85379; 87631; 87651; 93005; 93041; 94150; 94640; 99284; A9270-GY

== ENCOUNTER 2020-10-23 18:17 | Observation (INO) | payer MEDICARE, OTHER ==
[2020-10-23] MEDS ORDERED: BABY ASPIRIN 81 MG CHEW PO ONE (18:45)
[2020-10-23] MEDS ORDERED: BABY ASPIRIN 81 MG CHEW ONE (18:46)
[2020-10-23 18:47] LABS: BASOPHIL % 0.2 % (0.0-0.4); Basophil (Absolute #) 0.02 (0-0.4); Eosinophil % 0.2 % (0.00-5.0); Eosinophil (Absolute #) 0.02 (0-0.5); Hematocrit 46.2 % (35-47); Hemoglobin 14.6 gm/dl (12.0-16.0); Lymphocytes % 13.7 % (24.0-44.0); Mean Cell Volume 92.2 fl (78-100); Mean Corpuscular Hemoglobin 29.1 pg (26-32); Mean Corpuscular Hgb Concent. 31.6 g/dl (32-36); Mean Platelet Volume 10.8 fl (7.5-11.0); Monocyte (Absolute #) 1.53 (0.0-1.3); Monocytes % 12.4 % (0.0-12.0); Neutrophil % 73.5 % (36.0-66.0); Platelet Count 288 K/mm3 (150-450); Red Blood Count 5.01 M/mm3 (4.1-5.4); Red Cell Distribution Width 14.3 % (11.5-14.0); White Blood Count 12.4 K/mm3 (4.0-10.5)
[2020-10-23] MEDS ORDERED: Sodium Chloride 0.9% 500 ML 500 ML IV ONE ×2 (18:51→18:53)
[2020-10-23] MEDS ORDERED: MORPHINE SULFATE 4 MG INJ IV ONE (18:52)
[2020-10-23] MEDS ORDERED: Zofran 4 MG/2 ML VIAL IV ONE (18:52)
[2020-10-23] MEDS ORDERED: Zofran 4 MG/2 ML VIAL ONE (18:52)
[2020-10-23] MEDS ORDERED: MORPHINE SULFATE 4 MG INJ ONE (18:52)
[2020-10-23 18:58] LABS: ALBUMIN 4.5 g/dL (3.5-5.0); ALKALINE PHOSPHATASE 110 U/L (38-126); ANION GAP 14.8 MEQ/L (5-15); BLOOD UREA NITROGEN 22 mg/dL (7-17); CHLORIDE 100 mmol/L (98-107); Calcium 9.3 mg/dL (8.4-10.2); Carbon Dioxide 24 mmol/L (22-30); Creatinine 1 0.68 mg/dL (0.52-1.04); EST GLOMERULAR FILTRATION RATE > 60.0 ML/MIN; Glucose 96 mg/dL (74-106); Potassium 3.2 mmol/L (3.5-5.1); SGOT/AST 28 U/L (14-36); SGPT/ALT 16 U/L (0-35); SODIUM 136 mmol/L (137-145); Total Protein 7.3 g/dL (6.3-8.2)
--- NOTE | 2020-10-23 19:01 | ERPHSYRPT ---
- History of Present Illness Time Seen by Provider: 10/23/20 18:41 Historian: patient Exam Limitations: no limitations Patient Subjective Stated Complaint: pt here for pain to center of chest since today, nausea earlier today, was exposed to covid over the weekend Triage Nursing Assessment: pt alert, resp easy, skin w/d/p. face mask inplace, no edema noted, no cough Physician History: 75 years old female presented in the ER with chief complaint of substernal/central chest pain sudden onset few hours ago after she worked for few hours out in the yard and probably overdone it. Patient report dull aching pressure tightness and hurts to take a deep breath and also generalized weakness fatigue tiredness and body aches. Patient does report positive exposure to confirm COVID-19. Denies any cough fever or chills. Does not have any history of CAD and last cardiac cath was done many years ago. Denies any significant aggravating or relieving factors for pain. Timing/Duration: hour(s) (5), constant, gradual onset, sudden, worse Activities at Onset: activity Quality: dullness, pressure Location: central Chest Pain Radiation: no radiation Severity of Pain-Max: moderate Severity of Pain-Current: moderate Associated Symptoms: heartburn, hurts to breathe, fatigue, No palpitations, No shortness of breath Prior Chest Pain/Cardiac Workup: no prior chest pain, no prior cardiac workup Nitro Today/Relief: no nitro taken today Aspirin Treatment Today: no aspirin today Allergies/Adverse Reactions: amoxicillin trihydrate [From Augmentin] Allergy (Verified 10/30/20 02:14) Penicillins Allergy (Verified 10/30/20 02:14) potassium clavulanate [From Augmentin] Allergy (Verified 10/30/20 02:14) Sulfa (Sulfonamide Antibiotics) Allergy (Verified 10/30/20 02:14) Home Medications: Cholecalciferol (Vitd3)/Vit K2 [D3 + K2 Dots 1,000 Units Tab] 1 tab PO WEEKLY 11/10/16 [History] Lorazepam 1 mg [Ativan 1 MG] 1 mg PO BID PRN PRN 11/10/16 [History] Magnesium Hydroxide 30 ml [Milk of Magnesia 30 ml] 30 - 60 ml PO QHS 11/10/16 [History] Polyethylene Glycol 3350 17 gm [Miralax Powder 17GM PACKET] 1 packet PO QAM 11/10/16 [History] Levothyroxine Sodium 25 Mcg [Synthroid 25 Mcg] 37.5 mcg PO DAILY 10/29/17 [History] Hx Tetanus, Diphtheria Vaccination/Date Given: Yes Hx Influenza Vaccination/Date Given: Yes Hx Pneumococcal Vaccination/Date Given: Yes Immunizations Up to Date: Yes Travel Risk - International Travel Have you traveled outside of the country in past 3 weeks: No - Coronavirus Screening Are you exhibiting any of the following symptoms?: No Close contact with a COVID-19 positive Pt in past 14-21 Days: Yes - Vaccine Status Have you recieved a Covid-19 vaccination: Yes [employer]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 - Vaccination Dates Date of 2cond Vaccination (if applicable): mar - Review of Systems Constitutional: No Symptoms Eyes: No Symptoms Ears, Nose, & Throat: No Symptoms Respiratory: No Symptoms Cardiac: Chest Pain Abdominal/Gastrointestinal: No Symptoms Genitourinary Symptoms: No Symptoms Musculoskeletal: No Symptoms Skin: No Symptoms Neurological: No Symptoms Psychological: No Symptoms Endocrine: No Symptoms Hematologic/Lymphatic: No Symptoms Immunological/Allergic: No Symptoms - Past Medical History Pertinent Past Medical History: Yes Neurological History: No Pertinent History ENT History: Cataracts Cardiac History: No Pertinent History Respiratory History: Asthma Endocrine Medical History: Hypothyroidism Musculoskeletal History: No Pertinent History GI Medical History: No Pertinent History History: No Pertinent History Psycho-Social History: Anxiety Female Reproductive Disorders: No Pertinent History Other Medical History: immune deficiency - Past Surgical History Past Surgical History: Yes Neuro Surgical History: No Pertinent History Cardiac: No Pertinent History Gastrointestinal: Appendectomy Musculoskeletal: No Pertinent History Female Surgical History: Hysterectomy - Social History Smoking Status: Never smoker Exposure to second hand smoke: No Drug Use: none Patient Lives Alone: Yes - Female History Hx Last Menstrual Period: post Hx Now: No - Nursing Vital Signs Nursing Vital Signs: Initial Vital Signs O2 Sat by Pulse Oximetry 98 10/23/20 18:19 Pain Scale Pain Intensity 2 - Physical Exam General Appearance: no apparent distress, alert, anxiety Eye Exam: PERRL/EOMI, eyes nml inspection Ears, Nose, Throat Exam: normal ENT inspection, TMs normal, pharynx normal Neck Exam: normal inspection, non-tender, supple, full range of motion Respiratory Exam: normal breath sounds, lungs clear Cardiovascular Exam: regular rate/rhythm, normal heart sounds Gastrointestinal/Abdomen Exam: soft, normal bowel sounds, No tenderness Back Exam: normal inspection, normal range of motion Extremity Exam: normal inspection, normal range of motion Neurologic Exam: alert, oriented x 3, cooperative, accountant helper II-XII nml as tested Skin Exam: normal color SpO2 Interpretation: normal SpO2: 97 O2 Delivery: Room Air - Course EKG Interpreted by Me: RATE (110), Sinus Tach, NORMAL AXIS, NORMAL INTERVALS, Non-specific ST Changes Ordered Tests: Medication Summary Discontinued Medications Generic Name Dose Route Start Last Admin Trade Name Freq PRN Reason Stop Dose Admin Acetaminophen 650 mg 10/23/20 22:11 10/24/20 09:52 Tylenol 325 Mg PO 11/22/20 22:10 650 mg Q4H PRN PRN Administration PAIN AND/OR FEVER Al Hydrox/Mg Hydrox/Simethicone Confirm 10/23/20 20:12 Maalox Es 30 Ml Unit Dose Administered 10/23/20 20:13 Dose 30 ml .ROUTE .STK-MED ONE Albuterol/Ipratropium 3 ml 10/23/20 22:11 Duoneb 0.5-3 Mg/3 Ml Neb IH 11/22/20 22:10 Q4HPRN PRN SHORTNESS OF BREATH/WHEEZING Aspirin 324 mg 10/23/20 18:45 10/23/20 18:47 Baby Aspirin 81 Mg Chew PO 10/23/20 18:46 324 mg STAT ONE Administration Aspirin Confirm 10/23/20 18:46 Baby Aspirin 81 Mg Chew Administered 10/23/20 18:47 Dose 324 mg .ROUTE .STK-MED ONE Famotidine 20 mg 10/23/20 20:04 10/23/20 20:15 Pepcid 20 Mg Vial IV 10/23/20 20:05 20 mg STAT ONE Administration Famotidine Confirm 10/23/20 20:11 Pepcid 20 Mg Vial Administered 10/23/20 20:12 Dose 20 mg IV .STK-MED ONE Sodium Chloride 500 mls @ 500 mls/hr 10/23/20 18:51 10/23/20 19:57 Sodium Chloride 0.9% 500 Ml IV 10/23/20 19:50 Infused .Q1H ONE Infusion Sodium Chloride Confirm 10/23/20 18:53 Sodium Chloride 0.9% 500 Ml Administered 10/23/20 18:54 Dose 500 mls @ ud IV .STK-MED ONE Ketorolac Tromethamine 30 mg 10/24/20 12:23 10/24/20 12:54 Toradol 30 Mg Injection IV 10/24/20 12:24 30 mg ONCE ONE Administration Levothyroxine Sodium 37.5 mcg 10/24/20 12:00 Synthroid 75 Mcg PO 11/23/20 11:59 DAILY NAS Lidocaine HCl Confirm 10/23/20 20:11 Xylocaine Hcl Viscous * Administered 10/23/20 20:12 Dose 15 ml .ROUTE .STK-MED ONE Lorazepam 0 mg 10/24/20 12:00 Ativan 1 Mg PO 11/23/20 11:59 DAILY NAS Magnesium Hydroxide 45 ml 10/23/20 20:04 10/23/20 20:15 Gi Cocktail 45 Ml (Maalox/Lidocaine) PO 10/23/20 20:05 45 ml STAT ONE Administration Magnesium Hydroxide 0 ml 10/24/20 22:00 Milk Of Magnesia 30 Ml PO 11/23/20 21:59 QHS NAS Morphine Sulfate 4 mg 10/23/20 18:52 10/23/20 18:55 Morphine Sulfate 4 Mg Inj IV 10/23/20 18:53 4 mg STAT ONE Administration Morphine Sulfate Confirm 10/23/20 18:52 Morphine Sulfate 4 Mg Inj Administered 10/23/20 18:53 Dose 4 mg .ROUTE .STK-MED ONE Morphine Sulfate 2 mg 10/23/20 22:11 10/24/20 04:03 Morphine Sulfate 2 Mg Inj IV 10/28/20 22:10 2 mg Q4H PRN PRN Administration PAIN Ondansetron HCl 4 mg 10/23/20 18:52 10/23/20 18:55 Zofran 4 Mg/2 Ml Vial IV 10/23/20 18:53 4 mg STAT ONE Administration Ondansetron HCl Confirm 10/23/20 18:52 Zofran 4 Mg/2 Ml Vial Administered 10/23/20 18:53 Dose 4 mg .ROUTE .STK-MED ONE Ondansetron HCl 4 mg 10/23/20 22:11 10/24/20 04:03 Zofran 4 Mg/2 Ml Vial IV 11/22/20 22:10 4 mg Q6H PRN PRN Administration NAUSEA/VOMITING Pantoprazole Sodium 40 mg 10/24/20 10:00 10/24/20 10:03 Protonix 40 Mg Iv IV 11/23/20 09:59 Not Given Q24H10 [facility] Polyethylene Glycol 17 gm 10/24/20 12:00 Miralax Powder 17gm Packet PO 11/23/20 11:59 [facility] Lab/Rad Data: Laboratory Result Diagrams 10/23/20 18:43 10/23/20 18:43 Laboratory Results 10/23/20 10/23/20 10/23/20 Range/Units 20:43 18:43 18:43 WBC (4.0-10.5) K/mm3 RBC (4.1-5.4) M/mm3 Hgb (12.0-16.0) gm/dl Hct (35-47) % MCV (78-100) fl MCH (26-32) pg MCHC (32-36) g/dl RDW (11.5-14.0) % Plt Count (150-450) K/mm3 MPV (7.5-11.0) fl Gran % (36.0-66.0) % Eos # (Auto) (0-0.5) Absolute Lymphs (auto) (1.0-4.6) Absolute Monos (auto) (0.0-1.3) Lymphocytes % (24.0-44.0) % Monocytes % (0.0-12.0) % Eosinophils % (0.00-5.0) % Basophils % (0.0-0.4) % Absolute Granulocytes (1.4-6.9) Basophils # (0-0.4) D-Dimer (215-500) ng/mL Sodium 136 L (137-145) mmol/L Potassium 3.2 L (3.5-5.1) mmol/L Chloride 100 (98-107) mmol/L Carbon Dioxide 24 (22-30) mmol/L Anion Gap 14.8 (5-15) MEQ/L BUN 22 H (7-17) mg/dL Creatinine 0.68 (0.52-1.04) mg/dL Estimated GFR > 60.0 ML/MIN Glucose 96 (74-106) mg/dL Calcium 9.3 (8.4-10.2) mg/dL Total Bilirubin 1.00 (0.2-1.3) mg/dL AST 28 (14-36) U/L ALT 16 (0-35) U/L Alkaline Phosphatase 110 (38-126) U/L Creatine Kinase (30-135) U/L Troponin I < 0.012 (0.000-0.034) ng/mL NT-Pro-B Natriuret Pep (0-900) pg/mL Serum Total Protein 7.3 (6.3-8.2) g/dL Albumin 4.5 (3.5-5.0) g/dL SARS-CoV-2 (PCR) NEGATIVE (NEGATIVE) 10/23/20 10/23/20 10/23/20 Range/Units 18:43 18:35 18:30 WBC 12.4 H (4.0-10.5) K/mm3 RBC 5.01 (4.1-5.4) M/mm3 Hgb 14.6 (12.0-16.0) gm/dl Hct 46.2 (35-47) % MCV 92.2 (78-100) fl MCH 29.1 (26-32) pg MCHC 31.6 L (32-36) g/dl RDW 14.3 H (11.5-14.0) % Plt Count 288 (150-450) K/mm3 MPV 10.8 (7.5-11.0) fl Gran % 73.5 H (36.0-66.0) % Eos # (Auto) 0.02 (0-0.5) Absolute Lymphs (auto) 1.70 (1.0-4.6) Absolute Monos (auto) 1.53 H (0.0-1.3) Lymphocytes % 13.7 L (24.0-44.0) % Monocytes % 12.4 H (0.0-12.0) % Eosinophils % 0.2 (0.00-5.0) % Basophils % 0.2 (0.0-0.4) % Absolute Granulocytes 9.10 H (1.4-6.9) Basophils # 0.02 (0-0.4) D-Dimer 331 (215-500) ng/mL Sodium (137-145) mmol/L Potassium (3.5-5.1) mmol/L Chloride (98-107) mmol/L Carbon Dioxide (22-30) mmol/L Anion Gap (5-15) MEQ/L BUN (7-17) mg/dL Creatinine (0.52-1.04) mg/dL Estimated GFR ML/MIN Glucose (74-106) mg/dL Calcium (8.4-10.2) mg/dL Total Bilirubin (0.2-1.3) mg/dL AST (14-36) U/L ALT (0-35) U/L Alkaline Phosphatase (38-126) U/L Creatine Kinase 55 (30-135) U/L Troponin I (0.000-0.034) ng/mL NT-Pro-B Natriuret Pep 109 (0-900) pg/mL Serum Total Protein (6.3-8.2) g/dL Albumin (3.5-5.0) g/dL SARS-CoV-2 (PCR) (NEGATIVE) - Progress Progress: improved Air Movement: good Progress Note: 75 years old is evaluated for chest pain. Initial chest pain work-up is negative. Patient does not have any cardiac work-up done in the recent past. Discussed with Dr. Yost and patient is being admitted for observation. Blood Culture(s) Obtained: No Antibiotics given: No Discussed with : Tom Will see patient in: hospital (observation) Counseled pt/family regarding: lab results, diagnosis, rad results - Departure Departure Disposition: Observation Clinical Impression: Chest pain, rule out acute myocardial infarction Condition: Good Critical Care Time: No
[2020-10-23 19:27] LABS: CK-Creatinine Phosphokinase 55 U/L (30-135); NT PRO BNP 109 pg/mL (0-900)
[2020-10-23] MEDS ORDERED: Pepcid 20 MG VIAL IV ONE ×2 (20:04→20:11)
[2020-10-23] MEDS ORDERED: GI COCKTAIL 45 ML (Maalox/Lidocaine) PO ONE (20:04)
[2020-10-23] MEDS ORDERED: XYLOCAINE HCl Viscous ONE (20:11)
[2020-10-23] MEDS ORDERED: MAALOX ES 30 ML UNIT DOSE ONE (20:12)
[2020-10-23] MEDS ORDERED: Zofran 4 MG/2 ML VIAL IV PRN (22:11)
[2020-10-23] MEDS ORDERED: TYLENOL 325 MG PO PRN (22:11)
[2020-10-23] MEDS ORDERED: DUONEB 0.5-3 MG/3 ml Neb IH PRN (22:11)
[2020-10-23] MEDS: MORPHINE SULFATE 2 MG INJ IV PRN (22:44)
--- NOTE | 2020-10-23 22:54 | XRAY ---
Indication: Chest pain, fever, cough, and congestion. Covid 19 exposure. Comparison: January 02, 2019. Portable chest demonstrates new minimal bibasilar fibrosis/scarring. Remaining heart and lungs are unremarkable. Bony thorax intact.
[2020-10-24] MEDS: MORPHINE SULFATE 2 MG INJ IV PRN (04:03)
[2020-10-24 04:17] LABS: Absolute Neutrophil Ct (ANC) 7.47 (1.4-6.9); BASOPHIL % 0.1 % (0.0-0.4); Basophil (Absolute #) 0.01 (0-0.4); Eosinophil % 0.2 % (0.00-5.0); Eosinophil (Absolute #) 0.02 (0-0.5); Hematocrit 40.5 % (35-47); Hemoglobin 12.8 gm/dl (12.0-16.0); Lymphocyte (Absolute #) 1.14 (1.0-4.6); Lymphocytes % 11.5 % (24.0-44.0); Mean Cell Volume 93.5 fl (78-100); Mean Corpuscular Hemoglobin 29.6 pg (26-32); Mean Corpuscular Hgb Concent. 31.6 g/dl (32-36); Mean Platelet Volume 10.7 fl (7.5-11.0); Monocyte (Absolute #) 1.27 (0.0-1.3); Monocytes % 12.8 % (0.0-12.0); Neutrophil % 75.4 % (36.0-66.0); Platelet Count 241 K/mm3 (150-450); Red Blood Count 4.33 M/mm3 (4.1-5.4); Red Cell Distribution Width 14.2 % (11.5-14.0); White Blood Count 9.9 K/mm3 (4.0-10.5)
[2020-10-24 04:29] LABS: ALBUMIN 3.4 g/dL (3.5-5.0); ALKALINE PHOSPHATASE 75 U/L (38-126); ANION GAP 10.6 MEQ/L (5-15); BLOOD UREA NITROGEN 19 mg/dL (7-17); CHLORIDE 100 mmol/L (98-107); Calcium 8.5 mg/dL (8.4-10.2); Carbon Dioxide 27 mmol/L (22-30); Creatinine 1 0.68 mg/dL (0.52-1.04); EST GLOMERULAR FILTRATION RATE > 60.0 ML/MIN; Glucose 103 mg/dL (74-106); Potassium 3.1 mmol/L (3.5-5.1); SGOT/AST 21 U/L (14-36); SGPT/ALT 12 U/L (0-35); SODIUM 134 mmol/L (137-145); Total Protein 5.6 g/dL (6.3-8.2)
[2020-10-24] MEDS ORDERED: PROTONIX 40 MG IV IV SCH (10:00)
[2020-10-24 11:38] VITALS: BP 92/54; PULSE 77
[2020-10-24] MEDS ORDERED: Miralax Powder 17GM PACKET PO SCH (12:00)
[2020-10-24] MEDS ORDERED: SYNTHROID 75 MCG PO SCH (12:00)
[2020-10-24] MEDS ORDERED: Ativan 1 MG PO SCH (12:00)
[2020-10-24] MEDS ORDERED: TORAdol 30 mg Injection IV ONE (12:23)
--- NOTE | 2020-10-24 12:30 | PCM.SSS ---
History of Present Illness - Chief Complaint Chief Complaint: chest pain History of Present Illness: is a 75 year old female pt of Dr. Hart with hx of anxiety, asthma, hypothyroid, and immune deficiency who was admitted through the ER with chest pain. Pain was 10/10 on admission, substernal, worse with moving and with breathing (pretty constant). Radiated to R upper arm. No palpitations, + nausea, unsure if any SOB (was worse with inspiration). She did a lot of yard work yesterday as she felt really great in the morning. She pulled out plants and mulched. She was quite sweaty. In the afternoon, she felt achy and had a temp to 100.7. She did not urinate yesterday afternoon; urinated this morning. She was exposed to COVID 19 about 1 week ago. COVID test neg in the ER. Denies cough, but did cough after lung exam while I was in the room. Her EKG was non acute (sinus tachycardia, no ST changed indicative of ischemia). Troponins have been negative x 5. She has had a stress test years ago, so owing to family history (her mom had [facility] at about this age), will order a chemical stress test after discharge to home. Her CP is improved to 4/10 this morning. Jayashree po. Will try 1 dose of toradol IV here, and send her home with an NSAID for short period of time. Pt's BP in the 110s-120 on admission; this morning 98 systolic but she is asymptomatic. F/u in [address] Hart. - Review of Systems Constitutional: Fever, Fatigue, Weakness Respiratory: Cough, Short Of Breath Cardiac: Chest Pain Abdominal/Gastrointestinal: Nausea Musculoskeletal: Myalgias Psychological: No Anxiety, No Depression, No Suicidal Ideations, No Homicidal Ideations All Other Systems: Reviewed and Negative Medications & Allergies Home Medications: Home Medication List Cholecalciferol (Vitd3)/Vit K2 [D3 + K2 Dots 1,000 Units Tab] 1 tab PO DAILY 11/10/16 [History Confirmed 10/23/20] Lorazepam 1 mg [Ativan 1 MG] 1 - 2 mg PO DAILY 11/10/16 [History Confirmed 10/23/20] Magnesium Hydroxide 30 ml [Milk of Magnesia 30 ml] 30 - 60 ml PO QHS 11/10/16 [History Confirmed 10/23/20] Polyethylene Glycol 3350 17 gm [Miralax Powder 17GM PACKET] 1 packet PO QAM 11/10/16 [History Confirmed 10/23/20] Levothyroxine Sodium 25 Mcg [Synthroid 25 Mcg] 37.5 mcg PO DAILY 10/29/17 [History Confirmed 10/23/20] Naproxen 500 mg [Naprosyn 500 MG] 500 mg PO BIDPRN PRN #10 tablet 10/24/20 [Rx] Allergies/Adverse Reactions: Allergies Allergy/AdvReac Type Severity Reaction Status Date / Time amoxicillin trihydrate Allergy Verified 10/23/20 18:28 [From Augmentin] Penicillins Allergy Verified 10/23/20 18:28 potassium clavulanate Allergy Verified 10/23/20 18:28 [From Augmentin] Sulfa (Sulfonamide Allergy Verified 10/23/20 18:28 Antibiotics) - Past Medical History Past Medical History: Yes Neurological History: No Pertinent History ENT History: Cataracts Cardiac History: No Pertinent History Respiratory History: Asthma Endocrine Medical History: Hypothyroidism Musculoskelatal History: No Pertinent History GI Medical History: No Pertinent History History: No Pertinent History Pyscho-Social History: Anxiety Reproductive Disorders: No Pertinent History Comment: immune deficiency - Female History Hx Last Menstrual Period: post Are you now?: No - Past Surgical History Past Surgical History: Yes Neuro Surgical History: No Pertinent History Cardiac History: No Pertinent History Respiratory Surgery: No Pertinent History GI Surgical History: Appendectomy Genitourinary Surgical Hx: No Pertinent History Musculskeletal Surgical Hx: No Pertinent History Female Surgical History: Hysterectomy - Social History Smoking Status: Never smoker Exposure to second hand smoke: Yes Alcohol: None Drug Use: none - Physical Exam Vital Signs: Vital Signs - 24 hr Temp Pulse Resp BP BP Pulse Ox 10/24/20 11:37 98.8 F 77 16 92/54 92 L 10/24/20 07:42 97.3 F 79 18 98/56 91 L 10/24/20 04:09 97.9 F 80 20 98/52 93 L 10/23/20 23:38 98.2 F 10/23/20 22:30 98.6 F 84 20 113/62 98 10/23/20 21:00 91 H 17 117/67 95 10/23/20 20:11 97 10/23/20 20:00 88 18 119/70 96 10/23/20 18:42 97 10/23/20 18:22 97.4 F 116 H 18 120/86 97 10/23/20 18:19 98 General Appearance: no apparent distress, alert Neurologic Exam: oriented x 3, cooperative Eye Exam: eyes nml inspection Ears, Nose, Throat Exam: moist mucous membranes Neck Exam: normal inspection Respiratory Exam: normal breath sounds, lungs clear, No crackles/rales, No rhonchi, No wheezing Cardiovascular Exam: regular rate/rhythm, other (heart sounds distant) Gastrointestinal/Abdomen Exam: soft, normal bowel sounds, No tenderness, No distention, No mass, No guarding, No rebound Extremity Exam: normal inspection, No pedal edema, No swelling Skin Exam: normal color, warm, dry, No rash Results - Labs Lab/Micro Results: Lab Results-Last 24 Hours 10/23/20 10/23/20 10/23/20 Range/Units 18:30 18:35 18:43 WBC 12.4 H (4.0-10.5) K/mm3 RBC 5.01 (4.1-5.4) M/mm3 Hgb 14.6 (12.0-16.0) gm/dl Hct 46.2 (35-47) % MCV 92.2 (78-100) fl MCH 29.1 (26-32) pg MCHC 31.6 L (32-36) g/dl RDW 14.3 H (11.5-14.0) % Plt Count 288 (150-450) K/mm3 MPV 10.8 (7.5-11.0) fl Gran % 73.5 H (36.0-66.0) % Eos # (Auto) 0.02 (0-0.5) Absolute Lymphs (auto) 1.70 (1.0-4.6) Absolute Monos (auto) 1.53 H (0.0-1.3) Lymphocytes % 13.7 L (24.0-44.0) % Monocytes % 12.4 H (0.0-12.0) % Eosinophils % 0.2 (0.00-5.0) % Basophils % 0.2 (0.0-0.4) % Absolute Granulocytes 9.10 H (1.4-6.9) Basophils # 0.02 (0-0.4) D-Dimer 331 (215-500) ng/mL Sodium (137-145) mmol/L Potassium (3.5-5.1) mmol/L Chloride (98-107) mmol/L Carbon Dioxide (22-30) mmol/L Anion Gap (5-15) MEQ/L BUN (7-17) mg/dL Creatinine (0.52-1.04) mg/dL Estimated GFR ML/MIN Glucose (74-106) mg/dL Calcium (8.4-10.2) mg/dL Total Bilirubin (0.2-1.3) mg/dL AST (14-36) U/L ALT (0-35) U/L Alkaline Phosphatase (38-126) U/L Creatine Kinase 55 (30-135) U/L Troponin I (0.000-0.034) ng/mL NT-Pro-B Natriuret Pep 109 (0-900) pg/mL Serum Total Protein (6.3-8.2) g/dL Albumin (3.5-5.0) g/dL SARS-CoV-2 (PCR) (NEGATIVE) 10/23/20 10/23/20 10/23/20 Range/Units 18:43 18:43 20:43 WBC (4.0-10.5) K/mm3 RBC (4.1-5.4) M/mm3 Hgb (12.0-16.0) gm/dl Hct (35-47) % MCV (78-100) fl MCH (26-32) pg MCHC (32-36) g/dl RDW (11.5-14.0) % Plt Count (150-450) K/mm3 MPV (7.5-11.0) fl Gran % (36.0-66.0) % Eos # (Auto) (0-0.5) Absolute Lymphs (auto) (1.0-4.6) Absolute Monos (auto) (0.0-1.3) Lymphocytes % (24.0-44.0) % Monocytes % (0.0-12.0) % Eosinophils % (0.00-5.0) % Basophils % (0.0-0.4) % Absolute Granulocytes (1.4-6.9) Basophils # (0-0.4) D-Dimer (215-500) ng/mL Sodium 136 L (137-145) mmol/L Potassium 3.2 L (3.5-5.1) mmol/L Chloride 100 (98-107) mmol/L Carbon Dioxide 24 (22-30) mmol/L Anion Gap 14.8 (5-15) MEQ/L BUN 22 H (7-17) mg/dL Creatinine 0.68 (0.52-1.04) mg/dL Estimated GFR > 60.0 ML/MIN Glucose 96 (74-106) mg/dL Calcium 9.3 (8.4-10.2) mg/dL Total Bilirubin 1.00 (0.2-1.3) mg/dL AST 28 (14-36) U/L ALT 16 (0-35) U/L Alkaline Phosphatase 110 (38-126) U/L Creatine Kinase (30-135) U/L Troponin I < 0.012 (0.000-0.034) ng/mL NT-Pro-B Natriuret Pep (0-900) pg/mL Serum Total Protein 7.3 (6.3-8.2) g/dL Albumin 4.5 (3.5-5.0) g/dL SARS-CoV-2 (PCR) NEGATIVE (NEGATIVE) 10/23/20 10/24/20 10/24/20 Range/Units 22:02 01:06 04:01 WBC (4.0-10.5) K/mm3 RBC (4.1-5.4) M/mm3 Hgb (12.0-16.0) gm/dl Hct (35-47) % MCV (78-100) fl MCH (26-32) pg MCHC (32-36) g/dl RDW (11.5-14.0) % Plt Count (150-450) K/mm3 MPV (7.5-11.0) fl Gran % (36.0-66.0) % Eos # (Auto) (0-0.5) Absolute Lymphs (auto) (1.0-4.6) Absolute Monos (auto) (0.0-1.3) Lymphocytes % (24.0-44.0) % Monocytes % (0.0-12.0) % Eosinophils % (0.00-5.0) % Basophils % (0.0-0.4) % Absolute Granulocytes (1.4-6.9) Basophils # (0-0.4) D-Dimer (215-500) ng/mL Sodium (137-145) mmol/L Potassium (3.5-5.1) mmol/L Chloride (98-107) mmol/L Carbon Dioxide (22-30) mmol/L Anion Gap (5-15) MEQ/L BUN (7-17) mg/dL Creatinine (0.52-1.04) mg/dL Estimated GFR ML/MIN Glucose (74-106) mg/dL Calcium (8.4-10.2) mg/dL Total Bilirubin (0.2-1.3) mg/dL AST (14-36) U/L ALT (0-35) U/L Alkaline Phosphatase (38-126) U/L Creatine Kinase (30-135) U/L Troponin I < 0.012 < 0.012 < 0.012 (0.000-0.034) ng/mL NT-Pro-B Natriuret Pep (0-900) pg/mL Serum Total Protein (6.3-8.2) g/dL Albumin (3.5-5.0) g/dL SARS-CoV-2 (PCR) (NEGATIVE) 10/24/20 10/24/20 10/24/20 Range/Units 04:01 04:01 06:52 WBC 9.9 (4.0-10.5) K/mm3 RBC 4.33 (4.1-5.4) M/mm3 Hgb 12.8 (12.0-16.0) gm/dl Hct 40.5 (35-47) % MCV 93.5 (78-100) fl MCH 29.6 (26-32) pg MCHC 31.6 L (32-36) g/dl RDW 14.2 H (11.5-14.0) % Plt Count 241 (150-450) K/mm3 MPV 10.7 (7.5-11.0) fl Gran % 75.4 H (36.0-66.0) % Eos # (Auto) 0.02 (0-0.5) Absolute Lymphs (auto) 1.14 (1.0-4.6) Absolute Monos (auto) 1.27 (0.0-1.3) Lymphocytes % 11.5 L (24.0-44.0) % Monocytes % 12.8 H (0.0-12.0) % Eosinophils % 0.2 (0.00-5.0) % Basophils % 0.1 (0.0-0.4) % Absolute Granulocytes 7.47 H (1.4-6.9) Basophils # 0.01 (0-0.4) D-Dimer (215-500) ng/mL Sodium 134 L (137-145) mmol/L Potassium 3.1 L (3.5-5.1) mmol/L Chloride 100 (98-107) mmol/L Carbon Dioxide 27 (22-30) mmol/L Anion Gap 10.6 (5-15) MEQ/L BUN 19 H (7-17) mg/dL Creatinine 0.68 (0.52-1.04) mg/dL Estimated GFR > 60.0 ML/MIN Glucose 103 (74-106) mg/dL Calcium 8.5 (8.4-10.2) mg/dL Total Bilirubin 1.50 H (0.2-1.3) mg/dL AST 21 (14-36) U/L ALT 12 (0-35) U/L Alkaline Phosphatase 75 (38-126) U/L Creatine Kinase (30-135) U/L Troponin I < 0.012 (0.000-0.034) ng/mL NT-Pro-B Natriuret Pep (0-900) pg/mL Serum Total Protein 5.6 L (6.3-8.2) g/dL Albumin 3.4 L (3.5-5.0) g/dL SARS-CoV-2 (PCR) (NEGATIVE) - Radiology Impressions Radiology Exams & Impressions: Radiology Procedures Category Date Time Status CHEST 1 VIEW (PORTABLE) Stat Exams 10/23/20 18:33 Completed Assessment/Plan (1) Chest pain Current Visit: Yes Status: Acute Qualifiers: Chest pain type: chest pain on breathing Qualified Code(s): R07.1 - Chest pain on breathing; R07.81 - Pleurodynia Assessment & Plan: Likely musculoskeletal. However, stress test outpatient. Trial NSAIDs. F/u with Dr. Luke. Code(s): R07.9 - CHEST PAIN, UNSPECIFIED (2) Dehydration Current Visit: Yes Status: Resolved Assessment & Plan: Will check CK prior to discharge, but renal function is normal. Code(s): E86.0 - DEHYDRATION (3) Exposure to COVID-19 virus Current Visit: Yes Status: Acute Assessment & Plan: Advised quarantine 14d after exposure, unless she tests positive and has to quarantine for active infection. Code(s): Z20.822 - CONTACT WITH AND EXPECTED EXPOSURE TO COVID 19 Hospital Summary - Hospital Course Hospital Course: Pt admitted for CP, [facility] ruled out. Likely musculoskeletal. Sent home on NSAIDs and to f/u with stress test outpatient. F/u with PCP. - Vitals & Intake/Output Vital Signs: Vital Signs Temperature 98.8 F 10/24/20 11:37 Pulse Rate 77 10/24/20 11:37 Respiratory Rate 16 10/24/20 11:37 Blood Pressure 92/54 10/24/20 11:37 O2 Sat by Pulse Oximetry 92 L 10/24/20 11:37 Intake & Output: Intake & Output 10/22/20 10/23/20 10/24/20 10/25/20 11:59 11:59 11:59 11:59 Intake Total 240 Output Total 300 Balance -60 Weight 68.6 kg - Lab Result Diagrams: 10/24/20 04:01 10/24/20 04:01 Lab Results-Last 24 Hrs: Lab Results-Last 24 Hours 10/23/20 10/23/20 10/23/20 Range/Units 18:30 18:35 18:43 WBC 12.4 H (4.0-10.5) K/mm3 RBC 5.01 (4.1-5.4) M/mm3 Hgb 14.6 (12.0-16.0) gm/dl Hct 46.2 (35-47) % MCV 92.2 (78-100) fl MCH 29.1 (26-32) pg MCHC 31.6 L (32-36) g/dl RDW 14.3 H (11.5-14.0) % Plt Count 288 (150-450) K/mm3 MPV 10.8 (7.5-11.0) fl Gran % 73.5 H (36.0-66.0) % Eos # (Auto) 0.02 (0-0.5) Absolute Lymphs (auto) 1.70 (1.0-4.6) Absolute Monos (auto) 1.53 H (0.0-1.3) Lymphocytes % 13.7 L (24.0-44.0) % Monocytes % 12.4 H (0.0-12.0) % Eosinophils % 0.2 (0.00-5.0) % Basophils % 0.2 (0.0-0.4) % Absolute Granulocytes 9.10 H (1.4-6.9) Basophils # 0.02 (0-0.4) D-Dimer 331 (215-500) ng/mL Sodium (137-145) mmol/L Potassium (3.5-5.1) mmol/L Chloride (98-107) mmol/L Carbon Dioxide (22-30) mmol/L Anion Gap (5-15) MEQ/L BUN (7-17) mg/dL Creatinine (0.52-1.04) mg/dL Estimated GFR ML/MIN Glucose (74-106) mg/dL Calcium (8.4-10.2) mg/dL Total Bilirubin (0.2-1.3) mg/dL AST (14-36) U/L ALT (0-35) U/L Alkaline Phosphatase (38-126) U/L Creatine Kinase 55 (30-135) U/L Troponin I (0.000-0.034) ng/mL NT-Pro-B Natriuret Pep 109 (0-900) pg/mL Serum Total Protein (6.3-8.2) g/dL Albumin (3.5-5.0) g/dL SARS-CoV-2 (PCR) (NEGATIVE) 10/23/20 10/23/20 10/23/20 Range/Units 18:43 18:43 20:43 WBC (4.0-10.5) K/mm3 RBC (4.1-5.4) M/mm3 Hgb (12.0-16.0) gm/dl Hct (35-47) % MCV (78-100) fl MCH (26-32) pg MCHC (32-36) g/dl RDW (11.5-14.0) % Plt Count (150-450) K/mm3 MPV (7.5-11.0) fl Gran % (36.0-66.0) % Eos # (Auto) (0-0.5) Absolute Lymphs (auto) (1.0-4.6) Absolute Monos (auto) (0.0-1.3) Lymphocytes % (24.0-44.0) % Monocytes % (0.0-12.0) % Eosinophils % (0.00-5.0) % Basophils % (0.0-0.4) % Absolute Granulocytes (1.4-6.9) Basophils # (0-0.4) D-Dimer (215-500) ng/mL Sodium 136 L (137-145) mmol/L Potassium 3.2 L (3.5-5.1) mmol/L Chloride 100 (98-107) mmol/L Carbon Dioxide 24 (22-30) mmol/L Anion Gap 14.8 (5-15) MEQ/L BUN 22 H (7-17) mg/dL Creatinine 0.68 (0.52-1.04) mg/dL Estimated GFR > 60.0 ML/MIN Glucose 96 (74-106) mg/dL Calcium 9.3 (8.4-10.2) mg/dL Total Bilirubin 1.00 (0.2-1.3) mg/dL AST 28 (14-36) U/L ALT 16 (0-35) U/L Alkaline Phosphatase 110 (38-126) U/L Creatine Kinase (30-135) U/L Troponin I < 0.012 (0.000-0.034) ng/mL NT-Pro-B Natriuret Pep (0-900) pg/mL Serum Total Protein 7.3 (6.3-8.2) g/dL Albumin 4.5 (3.5-5.0) g/dL SARS-CoV-2 (PCR) NEGATIVE (NEGATIVE) 10/23/20 10/24/20 10/24/20 Range/Units 22:02 01:06 04:01 WBC (4.0-10.5) K/mm3 RBC (4.1-5.4) M/mm3 Hgb (12.0-16.0) gm/dl Hct (35-47) % MCV (78-100) fl MCH (26-32) pg MCHC (32-36) g/dl RDW (11.5-14.0) % Plt Count (150-450) K/mm3 MPV (7.5-11.0) fl Gran % (36.0-66.0) % Eos # (Auto) (0-0.5) Absolute Lymphs (auto) (1.0-4.6) Absolute Monos (auto) (0.0-1.3) Lymphocytes % (24.0-44.0) % Monocytes % (0.0-12.0) % Eosinophils % (0.00-5.0) % Basophils % (0.0-0.4) % Absolute Granulocytes (1.4-6.9) Basophils # (0-0.4) D-Dimer (215-500) ng/mL Sodium (137-145) mmol/L Potassium (3.5-5.1) mmol/L Chloride (98-107) mmol/L Carbon Dioxide (22-30) mmol/L Anion Gap (5-15) MEQ/L BUN (7-17) mg/dL Creatinine (0.52-1.04) mg/dL Estimated GFR ML/MIN Glucose (74-106) mg/dL Calcium (8.4-10.2) mg/dL Total Bilirubin (0.2-1.3) mg/dL AST (14-36) U/L ALT (0-35) U/L Alkaline Phosphatase (38-126) U/L Creatine Kinase (30-135) U/L Troponin I < 0.012 < 0.012 < 0.012 (0.000-0.034) ng/mL NT-Pro-B Natriuret Pep (0-900) pg/mL Serum Total Protein (6.3-8.2) g/dL Albumin (3.5-5.0) g/dL SARS-CoV-2 (PCR) (NEGATIVE) 10/24/20 10/24/20 10/24/20 Range/Units 04:01 04:01 06:52 WBC 9.9 (4.0-10.5) K/mm3 RBC 4.33 (4.1-5.4) M/mm3 Hgb 12.8 (12.0-16.0) gm/dl Hct 40.5 (35-47) % MCV 93.5 (78-100) fl MCH 29.6 (26-32) pg MCHC 31.6 L (32-36) g/dl RDW 14.2 H (11.5-14.0) % Plt Count 241 (150-450) K/mm3 MPV 10.7 (7.5-11.0) fl Gran % 75.4 H (36.0-66.0) % Eos # (Auto) 0.02 (0-0.5) Absolute Lymphs (auto) 1.14 (1.0-4.6) Absolute Monos (auto) 1.27 (0.0-1.3) Lymphocytes % 11.5 L (24.0-44.0) % Monocytes % 12.8 H (0.0-12.0) % Eosinophils % 0.2 (0.00-5.0) % Basophils % 0.1 (0.0-0.4) % Absolute Granulocytes 7.47 H (1.4-6.9) Basophils # 0.01 (0-0.4) D-Dimer (215-500) ng/mL Sodium 134 L (137-145) mmol/L Potassium 3.1 L (3.5-5.1) mmol/L Chloride 100 (98-107) mmol/L Carbon Dioxide 27 (22-30) mmol/L Anion Gap 10.6 (5-15) MEQ/L BUN 19 H (7-17) mg/dL Creatinine 0.68 (0.52-1.04) mg/dL Estimated GFR > 60.0 ML/MIN Glucose 103 (74-106) mg/dL Calcium 8.5 (8.4-10.2) mg/dL Total Bilirubin 1.50 H (0.2-1.3) mg/dL AST 21 (14-36) U/L ALT 12 (0-35) U/L Alkaline Phosphatase 75 (38-126) U/L Creatine Kinase (30-135) U/L Troponin I < 0.012 (0.000-0.034) ng/mL NT-Pro-B Natriuret Pep (0-900) pg/mL Serum Total Protein 5.6 L (6.3-8.2) g/dL Albumin 3.4 L (3.5-5.0) g/dL SARS-CoV-2 (PCR) (NEGATIVE) - Radiology Exams Ordered Rad Exams-Entire Visit: Radiology Procedures Category Date Time Status CHEST 1 VIEW (PORTABLE) Stat Exams 10/23/20 18:33 Completed - Discharge Disposition: Home, Self-Care Condition: Good Prescriptions: New Naproxen 500 mg [Naprosyn 500 MG] 500 mg PO BIDPRN PRN #10 tablet PRN Reason: Pain Continue Polyethylene Glycol 3350 17 gm [Miralax Powder 17GM PACKET] 1 packet PO QAM Magnesium Hydroxide 30 ml [Milk of Magnesia 30 ml] 30 - 60 ml PO QHS Cholecalciferol (Vitd3)/Vit K2 [D3 + K2 Dots 1,000 Units Tab] 1 tab PO DAILY Lorazepam 1 mg [Ativan 1 MG] 1 - 2 mg PO DAILY Levothyroxine Sodium 25 Mcg [Synthroid 25 Mcg] 37.5 mcg PO DAILY Outpatient Orders: Stress Test: Lexiscan Facility: [facility], Location: RESPIRATORY THERAPY Instructions: Muscle Strain Follow up with: KINSEY HART MD [Primary Care Provider] - Call for Appointment
--- NOTE | 2020-10-24 12:36 | PCM.DS ---
Discharge Summary Date of Admission: 10/23/20 22:00 Admitting Physician: KINSEY HART Primary Care Provider: KINSEY HART Allergies Allergies amoxicillin trihydrate [From Augmentin] Allergy (Verified 10/23/20 18:28) Penicillins Allergy (Verified 10/23/20 18:28) potassium clavulanate [From Augmentin] Allergy (Verified 10/23/20 18:28) Sulfa (Sulfonamide Antibiotics) Allergy (Verified 10/23/20 18:28) Hospital Summary - Vitals & Intake/Output Vital Signs: Vital Signs Temperature 98.8 F 10/24/20 11:37 Pulse Rate 77 10/24/20 11:37 Respiratory Rate 16 10/24/20 11:37 Blood Pressure 92/54 10/24/20 11:37 O2 Sat by Pulse Oximetry 92 L 10/24/20 11:37 Intake & Output: Intake & Output 10/22/20 10/23/20 10/24/20 10/25/20 11:59 11:59 11:59 11:59 Intake Total 240 Output Total 300 Balance -60 Weight 68.6 kg - Lab Result Diagrams: 10/24/20 04:01 10/24/20 04:01 Lab Results-Last 24 Hrs: Lab Results-Last 24 Hours 10/23/20 10/23/20 10/23/20 Range/Units 18:30 18:35 18:43 WBC 12.4 H (4.0-10.5) K/mm3 RBC 5.01 (4.1-5.4) M/mm3 Hgb 14.6 (12.0-16.0) gm/dl Hct 46.2 (35-47) % MCV 92.2 (78-100) fl MCH 29.1 (26-32) pg MCHC 31.6 L (32-36) g/dl RDW 14.3 H (11.5-14.0) % Plt Count 288 (150-450) K/mm3 MPV 10.8 (7.5-11.0) fl Gran % 73.5 H (36.0-66.0) % Eos # (Auto) 0.02 (0-0.5) Absolute Lymphs (auto) 1.70 (1.0-4.6) Absolute Monos (auto) 1.53 H (0.0-1.3) Lymphocytes % 13.7 L (24.0-44.0) % Monocytes % 12.4 H (0.0-12.0) % Eosinophils % 0.2 (0.00-5.0) % Basophils % 0.2 (0.0-0.4) % Absolute Granulocytes 9.10 H (1.4-6.9) Basophils # 0.02 (0-0.4) D-Dimer 331 (215-500) ng/mL Sodium (137-145) mmol/L Potassium (3.5-5.1) mmol/L Chloride (98-107) mmol/L Carbon Dioxide (22-30) mmol/L Anion Gap (5-15) MEQ/L BUN (7-17) mg/dL Creatinine (0.52-1.04) mg/dL Estimated GFR ML/MIN Glucose (74-106) mg/dL Calcium (8.4-10.2) mg/dL Total Bilirubin (0.2-1.3) mg/dL AST (14-36) U/L ALT (0-35) U/L Alkaline Phosphatase (38-126) U/L Creatine Kinase 55 (30-135) U/L Troponin I (0.000-0.034) ng/mL NT-Pro-B Natriuret Pep 109 (0-900) pg/mL Serum Total Protein (6.3-8.2) g/dL Albumin (3.5-5.0) g/dL SARS-CoV-2 (PCR) (NEGATIVE) 10/23/20 10/23/20 10/23/20 Range/Units 18:43 18:43 20:43 WBC (4.0-10.5) K/mm3 RBC (4.1-5.4) M/mm3 Hgb (12.0-16.0) gm/dl Hct (35-47) % MCV (78-100) fl MCH (26-32) pg MCHC (32-36) g/dl RDW (11.5-14.0) % Plt Count (150-450) K/mm3 MPV (7.5-11.0) fl Gran % (36.0-66.0) % Eos # (Auto) (0-0.5) Absolute Lymphs (auto) (1.0-4.6) Absolute Monos (auto) (0.0-1.3) Lymphocytes % (24.0-44.0) % Monocytes % (0.0-12.0) % Eosinophils % (0.00-5.0) % Basophils % (0.0-0.4) % Absolute Granulocytes (1.4-6.9) Basophils # (0-0.4) D-Dimer (215-500) ng/mL Sodium 136 L (137-145) mmol/L Potassium 3.2 L (3.5-5.1) mmol/L Chloride 100 (98-107) mmol/L Carbon Dioxide 24 (22-30) mmol/L Anion Gap 14.8 (5-15) MEQ/L BUN 22 H (7-17) mg/dL Creatinine 0.68 (0.52-1.04) mg/dL Estimated GFR > 60.0 ML/MIN Glucose 96 (74-106) mg/dL Calcium 9.3 (8.4-10.2) mg/dL Total Bilirubin 1.00 (0.2-1.3) mg/dL AST 28 (14-36) U/L ALT 16 (0-35) U/L Alkaline Phosphatase 110 (38-126) U/L Creatine Kinase (30-135) U/L Troponin I < 0.012 (0.000-0.034) ng/mL NT-Pro-B Natriuret Pep (0-900) pg/mL Serum Total Protein 7.3 (6.3-8.2) g/dL Albumin 4.5 (3.5-5.0) g/dL SARS-CoV-2 (PCR) NEGATIVE (NEGATIVE) 10/23/20 10/24/20 10/24/20 Range/Units 22:02 01:06 04:01 WBC (4.0-10.5) K/mm3 RBC (4.1-5.4) M/mm3 Hgb (12.0-16.0) gm/dl Hct (35-47) % MCV (78-100) fl MCH (26-32) pg MCHC (32-36) g/dl RDW (11.5-14.0) % Plt Count (150-450) K/mm3 MPV (7.5-11.0) fl Gran % (36.0-66.0) % Eos # (Auto) (0-0.5) Absolute Lymphs (auto) (1.0-4.6) Absolute Monos (auto) (0.0-1.3) Lymphocytes % (24.0-44.0) % Monocytes % (0.0-12.0) % Eosinophils % (0.00-5.0) % Basophils % (0.0-0.4) % Absolute Granulocytes (1.4-6.9) Basophils # (0-0.4) D-Dimer (215-500) ng/mL Sodium (137-145) mmol/L Potassium (3.5-5.1) mmol/L Chloride (98-107) mmol/L Carbon Dioxide (22-30) mmol/L Anion Gap (5-15) MEQ/L BUN (7-17) mg/dL Creatinine (0.52-1.04) mg/dL Estimated GFR ML/MIN Glucose (74-106) mg/dL Calcium (8.4-10.2) mg/dL Total Bilirubin (0.2-1.3) mg/dL AST (14-36) U/L ALT (0-35) U/L Alkaline Phosphatase (38-126) U/L Creatine Kinase (30-135) U/L Troponin I < 0.012 < 0.012 < 0.012 (0.000-0.034) ng/mL NT-Pro-B Natriuret Pep (0-900) pg/mL Serum Total Protein (6.3-8.2) g/dL Albumin (3.5-5.0) g/dL SARS-CoV-2 (PCR) (NEGATIVE) 10/24/20 10/24/20 10/24/20 Range/Units 04:01 04:01 06:52 WBC 9.9 (4.0-10.5) K/mm3 RBC 4.33 (4.1-5.4) M/mm3 Hgb 12.8 (12.0-16.0) gm/dl Hct 40.5 (35-47) % MCV 93.5 (78-100) fl MCH 29.6 (26-32) pg MCHC 31.6 L (32-36) g/dl RDW 14.2 H (11.5-14.0) % Plt Count 241 (150-450) K/mm3 MPV 10.7 (7.5-11.0) fl Gran % 75.4 H (36.0-66.0) % Eos # (Auto) 0.02 (0-0.5) Absolute Lymphs (auto) 1.14 (1.0-4.6) Absolute Monos (auto) 1.27 (0.0-1.3) Lymphocytes % 11.5 L (24.0-44.0) % Monocytes % 12.8 H (0.0-12.0) % Eosinophils % 0.2 (0.00-5.0) % Basophils % 0.1 (0.0-0.4) % Absolute Granulocytes 7.47 H (1.4-6.9) Basophils # 0.01 (0-0.4) D-Dimer (215-500) ng/mL Sodium 134 L (137-145) mmol/L Potassium 3.1 L (3.5-5.1) mmol/L Chloride 100 (98-107) mmol/L Carbon Dioxide 27 (22-30) mmol/L Anion Gap 10.6 (5-15) MEQ/L BUN 19 H (7-17) mg/dL Creatinine 0.68 (0.52-1.04) mg/dL Estimated GFR > 60.0 ML/MIN Glucose 103 (74-106) mg/dL Calcium 8.5 (8.4-10.2) mg/dL Total Bilirubin 1.50 H (0.2-1.3) mg/dL AST 21 (14-36) U/L ALT 12 (0-35) U/L Alkaline Phosphatase 75 (38-126) U/L Creatine Kinase (30-135) U/L Troponin I < 0.012 (0.000-0.034) ng/mL NT-Pro-B Natriuret Pep (0-900) pg/mL Serum Total Protein 5.6 L (6.3-8.2) g/dL Albumin 3.4 L (3.5-5.0) g/dL SARS-CoV-2 (PCR) (NEGATIVE) - Radiology Exams Ordered Rad Exams-Entire Visit: Radiology Procedures Category Date Time Status CHEST 1 VIEW (PORTABLE) Stat Exams 10/23/20 18:33 Completed Final Diagnosis/Problem List - Final Discharge Diagnosis/Problem (1) Chest pain Current Visit: Yes Status: Acute Code(s): R07.9 - CHEST PAIN, UNSPECIFIED (2) Dehydration Current Visit: Yes Status: Resolved Code(s): E86.0 - DEHYDRATION (3) Exposure to COVID-19 virus Current Visit: Yes Status: Acute Code(s): Z20.822 - CONTACT WITH AND EXPECTED EXPOSURE TO COVID 19 - Discharge Disposition: Home, Self-Care Condition: Good Prescriptions: New Naproxen 500 mg [Naprosyn 500 MG] 500 mg PO BIDPRN PRN #10 tablet PRN Reason: Pain Continue Polyethylene Glycol 3350 17 gm [Miralax Powder 17GM PACKET] 1 packet PO QAM Magnesium Hydroxide 30 ml [Milk of Magnesia 30 ml] 30 - 60 ml PO QHS Cholecalciferol (Vitd3)/Vit K2 [D3 + K2 Dots 1,000 Units Tab] 1 tab PO DAILY Lorazepam 1 mg [Ativan 1 MG] 1 - 2 mg PO DAILY Levothyroxine Sodium 25 Mcg [Synthroid 25 Mcg] 37.5 mcg PO DAILY Outpatient Orders: Stress Test: Lexiscan Facility: [facility] Hosp, Location: [facility] Instructions: Muscle Strain Additional Instructions: If any blood in the stool or black tarry stool, stop taking the naproxen and go to the ER. Your CXR had a questionable finding of scarring in the bases vs pulmonary fibrosis - please f/u with Dr. Hart about this. Follow up with: KINSEY HART MD [Primary Care Provider] - Call for Appointment
[2020-10-24] MEDS ORDERED: MILK OF MAGNESIA 30 ML PO SCH (22:00)
[2020-10-26 08:04] VITALS: O2SAT 97
== END 2020-10-24 13:25 | disposition home or self-care (01) ==
LOC: ED 18:17 → MED SURG 22:00
PROVIDERS: ADMIT General Practice; ATTEND General Practice
DX: R07.9 Chest pain, unspecified (principal); R53.1 Weakness; E86.0 Dehydration; R06.02 Shortness of breath; E03.9 Hypothyroidism, unspecified; Z79.899 Other long term (current) drug therapy; Z20.822 Contact with and (suspected) exposure to COVID-19
CPT/HCPCS: 36000; 36415; 71045; 80053; 82550; 83880; 84484; 85025; 85379; 93005; 93041; 93268; 94760; 96374; 96375; 99285; G0378; U0003; J1885; J2270; J2405; A9270-GY

== ENCOUNTER 2020-10-29 16:25 | Inpatient (IN) | payer MEDICARE, OTHER ==
--- NOTE | 2020-10-29 16:28 | ERPHSYRPT ---
- History of Present Illness Time Seen by Provider: 10/29/20 16:27 Historian: patient Exam Limitations: no limitations Physician History: This is a 75-year-old white female patient of Dr. Hart and has a history of asthma, hypothyroidism and anxiety. She was seen in this emergency department on 10/23/2020 and observed because of chest pain issues. Patient began having some chest pain today and felt her heart racing. Patient presents in atrial fibrillation with RVR. This was different than her prior EKG from 10/24/2019 which showed sinus tachycardia. Patient has no primary cardiac issues. Timing/Duration: today Activities at Onset: none Quality: aching Location: substernal, central Chest Pain Radiation: no radiation Severity of Pain-Max: moderate Severity of Pain-Current: moderate Modifying Factors: Improves With: nothing Associated Symptoms: denies symptoms Prior Chest Pain/Cardiac Workup: recently seen/treated, recent hospitalization Aspirin Treatment Today: provided by ED Allergies/Adverse Reactions: amoxicillin trihydrate [From Augmentin] Allergy (Verified 10/29/20 16:35) Penicillins Allergy (Verified 10/29/20 16:35) potassium clavulanate [From Augmentin] Allergy (Verified 10/29/20 16:35) Sulfa (Sulfonamide Antibiotics) Allergy (Verified 10/29/20 16:35) Home Medications: Cholecalciferol (Vitd3)/Vit K2 [D3 + K2 Dots 1,000 Units Tab] 1 tab PO DAILY 11/10/16 [History] Lorazepam 1 mg [Ativan 1 MG] 1 - 2 mg PO DAILY 11/10/16 [History] Magnesium Hydroxide 30 ml [Milk of Magnesia 30 ml] 30 - 60 ml PO QHS 11/10/16 [History] Polyethylene Glycol 3350 17 gm [Miralax Powder 17GM PACKET] 1 packet PO QAM 11/10/16 [History] Levothyroxine Sodium 25 Mcg [Synthroid 25 Mcg] 37.5 mcg PO DAILY 10/29/17 [History] Hx Tetanus, Diphtheria Vaccination/Date Given: Yes Hx Influenza Vaccination/Date Given: Yes Hx Pneumococcal Vaccination/Date Given: Yes Travel Risk - International Travel Have you traveled outside of the country in past 3 weeks: No - Coronavirus Screening Are you exhibiting any of the following symptoms?: No Close contact with a COVID-19 positive Pt in past 14-21 Days: No - Vaccine Status Have you recieved a Covid-19 vaccination: Yes Editing Intern: Moderna - Vaccination Dates Date of 2cond Vaccination (if applicable): unknown - Review of Systems Constitutional: No Symptoms Eyes: No Symptoms Ears, Nose, & Throat: No Symptoms Respiratory: No Symptoms Cardiac: Chest Pain, Palpitations Abdominal/Gastrointestinal: No Symptoms Genitourinary Symptoms: No Symptoms Musculoskeletal: No Symptoms Skin: No Symptoms Neurological: No Symptoms Psychological: No Symptoms Endocrine: No Symptoms Hematologic/Lymphatic: No Symptoms Immunological/Allergic: No Symptoms All Other Systems: Reviewed and Negative - Past Medical History Pertinent Past Medical History: Yes Neurological History: No Pertinent History ENT History: Cataracts Cardiac History: No Pertinent History Respiratory History: Asthma Endocrine Medical History: Hypothyroidism Musculoskeletal History: No Pertinent History GI Medical History: No Pertinent History History: No Pertinent History Psycho-Social History: Anxiety Female Reproductive Disorders: No Pertinent History Other Medical History: immune deficiency - Past Surgical History Past Surgical History: Yes Neuro Surgical History: No Pertinent History Cardiac: No Pertinent History Respiratory: No Pertinent History Gastrointestinal: Appendectomy Genitourinary: No Pertinent History Musculoskeletal: No Pertinent History Female Surgical History: Hysterectomy - Social History Smoking Status: Never smoker Exposure to second hand smoke: Yes Drug Use: none Patient Lives Alone: Yes - Nursing Vital Signs Nursing Vital Signs: Initial Vital Signs Temperature 97.4 F 10/29/20 16:26 Pulse Rate 132 H 10/29/20 16:26 Blood Pressure 134/91 10/29/20 16:26 O2 Sat by Pulse Oximetry 98 10/29/20 16:26 Pain Scale Pain Intensity 10 - Physical Exam General Appearance: mild distress, alert, anxiety Eye Exam: PERRL/EOMI, eyes nml inspection Ears, Nose, Throat Exam: normal ENT inspection, moist mucous membranes Neck Exam: normal inspection, non-tender, supple, full range of motion Respiratory Exam: normal breath sounds, lungs clear, airway intact, No chest tenderness, No respiratory distress Cardiovascular Exam: tachycardia, irregular Gastrointestinal/Abdomen Exam: soft, normal bowel sounds, No tenderness Pelvic Exam: not done Rectal Exam: not done Back Exam: normal inspection, normal range of motion, No CVA tenderness, No vertebral tenderness Extremity Exam: normal inspection, normal range of motion, pelvis stable Neurologic Exam: alert, oriented x 3, cooperative, field clerk II-XII nml as tested, normal mood/affect, nml cerebellar function, nml station & gait, sensation nml Skin Exam: normal color, warm, dry Lymphatic Exam: No adenopathy SpO2 Interpretation: normal O2 Delivery: Room Air - Course Nursing assessment & vital signs reviewed: Yes EKG Interpreted by Me: RATE (142), A-fib, prolonged QT interval, NORMAL ST-T, Other (There is new onset atrial fibrillation with RVR on today's EKG. This was compared to an EKG dated 10/23/2020.) Ordered Tests: Active Orders 24 hr Category Date Time Status EKG-ER Only STAT Care 10/29/20 16:30 Active IV Insertion STAT Care 10/29/20 16:30 Active Pulse Oximetry (ED) STAT Care 10/29/20 16:30 Active CHEST 1 VIEW (PORTABLE) Stat Exams 10/29/20 16:31 Completed CHEST WITH CONTRAST [CT] Stat Exams 10/29/20 18:13 Taken CBC W DIFF Stat Lab 10/29/20 16:30 Completed CMP Stat Lab 10/29/20 16:59 Completed D-DIMER QUANTITATIVE Stat Lab 10/29/20 16:59 Completed MAGNESIUM Stat Lab 10/29/20 16:40 Completed NT PRO BNP Stat Lab 10/29/20 16:59 Completed PROTIME WITH INR Stat Lab 10/29/20 16:59 Completed T4 (Thyroxine) Stat Lab 10/29/20 16:30 Completed TROPONIN Q3H Lab 10/29/20 16:59 Completed TROPONIN Q3H Lab 10/29/20 20:10 Received TROPONIN Q3H Lab 10/29/20 22:45 Ordered TROPONIN Q3H Lab 10/30/20 01:45 Ordered TROPONIN Q3H Lab 10/30/20 04:45 Ordered TSH [TSH, 3RD Generation] Stat Lab 10/29/20 16:40 Completed UA W/RFX UR CULTURE Stat Lab 10/29/20 18:27 Completed Transfer Order Routine Transfer 10/29/20 Ordered Medication Summary Generic Name Dose Route Start Last Admin Trade Name Freq PRN Reason Stop Dose Admin Enoxaparin Sodium 60 mg 10/29/20 22:00 Enoxaparin Sodium SQ 11/28/20 21:59 BID NAS Diltiazem HCl 100 mls @ 5 mls/hr 10/29/20 16:58 10/29/20 17:03 Cardizem Drip 100 Mg/100 Ml D5w IV 11/28/20 16:57 5 mg/hr .Q20H PRN 5 mls/hr HEART RATE/ A-FIB Administration Protocol 5 MG/HR Diltiazem HCl 100 mls @ 5 mls/hr 10/29/20 20:53 Cardizem Drip 100 Mg/100 Ml D5w IV 11/28/20 20:52 .Q20H PRN HEART RATE/ A-FIB Protocol 5 MG/HR Discontinued Medications Generic Name Dose Route Start Last Admin Trade Name Freq PRN Reason Stop Dose Admin Aspirin 324 mg 10/29/20 16:30 10/29/20 16:36 Baby Aspirin 81 Mg Chew PO 10/29/20 16:31 324 mg STAT ONE Administration Diltiazem HCl 15 mg 10/29/20 16:42 10/29/20 16:45 Cardizem Iv 50 Mg/10 Ml IV 10/29/20 16:43 15 mg STAT ONE Administration Diltiazem HCl Confirm 10/29/20 16:44 Cardizem Iv 50 Mg/10 Ml Administered 10/29/20 16:45 Dose 50 mg IV .STK-MED ONE Furosemide 40 mg 10/29/20 19:51 Lasix 40 Mg/4 Ml IV 10/29/20 19:52 STAT ONE Furosemide Confirm 10/29/20 20:27 Lasix 40 Mg/4 Ml Administered 10/29/20 20:28 Dose 40 mg .ROUTE .STK-MED ONE Morphine Sulfate 4 mg 10/29/20 17:13 10/29/20 17:19 Morphine Sulfate 4 Mg Inj IV 10/29/20 17:14 4 mg STAT ONE Administration Morphine Sulfate Confirm 10/29/20 17:17 Morphine Sulfate 4 Mg Inj Administered 10/29/20 17:18 Dose 4 mg .ROUTE .STK-MED ONE Morphine Sulfate 4 mg 10/29/20 20:13 Morphine Sulfate 4 Mg Inj IV 10/29/20 20:14 STAT ONE Morphine Sulfate Confirm 10/29/20 20:27 Morphine Sulfate 4 Mg Inj Administered 10/29/20 20:28 Dose 4 mg .ROUTE .STK-MED ONE Ondansetron HCl 4 mg 10/29/20 17:13 10/29/20 17:19 Zofran 4 Mg/2 Ml Vial IV 10/29/20 17:14 4 mg STAT ONE Administration Ondansetron HCl Confirm 10/29/20 17:16 Zofran 4 Mg/2 Ml Vial Administered 10/29/20 17:17 Dose 4 mg .ROUTE .STK-MED ONE Lab/Rad Data: Laboratory Result Diagrams 10/29/20 16:30 10/29/20 16:59 Laboratory Results 10/29/20 10/29/20 10/29/20 Range/Units 18:27 16:59 16:59 WBC (4.0-10.5) K/mm3 RBC (4.1-5.4) M/mm3 Hgb (12.0-16.0) gm/dl Hct (35-47) % MCV (78-100) fl MCH (26-32) pg MCHC (32-36) g/dl RDW (11.5-14.0) % Plt Count (150-450) K/mm3 MPV (7.5-11.0) fl Gran % (36.0-66.0) % Eos # (Auto) (0-0.5) Absolute Lymphs (auto) (1.0-4.6) Absolute Monos (auto) (0.0-1.3) Lymphocytes % (24.0-44.0) % Monocytes % (0.0-12.0) % Eosinophils % (0.00-5.0) % Basophils % (0.0-0.4) % Absolute Granulocytes (1.4-6.9) Basophils # (0-0.4) PT 12.0 (9.4-12.5) SECONDS INR 1.02 (0.8-3.0) D-Dimer 1437 H* (215-500) ng/mL Sodium (137-145) mmol/L Potassium (3.5-5.1) mmol/L Chloride (98-107) mmol/L Carbon Dioxide (22-30) mmol/L Anion Gap (5-15) MEQ/L BUN (7-17) mg/dL Creatinine (0.52-1.04) mg/dL Estimated GFR ML/MIN Glucose (74-106) mg/dL Calcium (8.4-10.2) mg/dL Magnesium (1.6-2.3) mg/dL Total Bilirubin (0.2-1.3) mg/dL AST (14-36) U/L ALT (0-35) U/L Alkaline Phosphatase (38-126) U/L Troponin I < 0.012 (0.000-0.034) ng/mL NT-Pro-B Natriuret Pep (0-900) pg/mL Serum Total Protein (6.3-8.2) g/dL Albumin (3.5-5.0) g/dL Thyroxine (T4) (5.53-10.96) ug/dL TSH 3rd Generation (0.47-4.68) mIU/L Urine Color YELLOW (YELLOW) Urine Appearance CLEAR (CLEAR) Urine pH 8.0 (5-6) Ur Specific Sutton 1.021 (1.005-1.025) Urine Protein NEGATIVE (Negative) Urine Ketones SMALL (NEGATIVE) Urine Blood NEGATIVE (0-5) Pankaj/ul Urine Nitrite NEGATIVE (NEGATIVE) Urine Bilirubin NEGATIVE (NEGATIVE) Urine Urobilinogen NEGATIVE (0-1) mg/dL Ur Leukocyte Esterase NEGATIVE (NEGATIVE) Urine WBC (Auto) NONE (0-5) /HPF Urine RBC (Auto) NONE (0-2) /HPF Urine Mucus (Auto) SLIGHT (NEGATIVE) /HPF Urine Culture Reflexed NO (NO) Urine Glucose NEGATIVE (NEGATIVE) mg/dL 10/29/20 10/29/20 10/29/20 Range/Units 16:59 16:40 16:30 WBC (4.0-10.5) K/mm3 RBC (4.1-5.4) M/mm3 Hgb (12.0-16.0) gm/dl Hct (35-47) % MCV (78-100) fl MCH (26-32) pg MCHC (32-36) g/dl RDW (11.5-14.0) % Plt Count (150-450) K/mm3 MPV (7.5-11.0) fl Gran % (36.0-66.0) % Eos # (Auto) (0-0.5) Absolute Lymphs (auto) (1.0-4.6) Absolute Monos (auto) (0.0-1.3) Lymphocytes % (24.0-44.0) % Monocytes % (0.0-12.0) % Eosinophils % (0.00-5.0) % Basophils % (0.0-0.4) % Absolute Granulocytes (1.4-6.9) Basophils # (0-0.4) PT (9.4-12.5) SECONDS INR (0.8-3.0) D-Dimer (215-500) ng/mL Sodium 137 (137-145) mmol/L Potassium 4.0 (3.5-5.1) mmol/L Chloride 101 (98-107) mmol/L Carbon Dioxide 23 (22-30) mmol/L Anion Gap 16.9 H (5-15) MEQ/L BUN 14 (7-17) mg/dL Creatinine 0.60 (0.52-1.04) mg/dL Estimated GFR > 60.0 ML/MIN Glucose 94 (74-106) mg/dL Calcium 9.8 (8.4-10.2) mg/dL Magnesium 2.1 (1.6-2.3) mg/dL Total Bilirubin 0.80 (0.2-1.3) mg/dL AST 31 (14-36) U/L ALT 16 (0-35) U/L Alkaline Phosphatase 97 (38-126) U/L Troponin I (0.000-0.034) ng/mL NT-Pro-B Natriuret Pep 709 (0-900) pg/mL Serum Total Protein 7.3 (6.3-8.2) g/dL Albumin 4.2 (3.5-5.0) g/dL Thyroxine (T4) 11.9 H (5.53-10.96) ug/dL TSH 3rd Generation 2.710 (0.47-4.68) mIU/L Urine Color (YELLOW) Urine Appearance (CLEAR) Urine pH (5-6) Ur Specific Sutton (1.005-1.025) Urine Protein (Negative) Urine Ketones (NEGATIVE) Urine Blood (0-5) Pankaj/ul Urine Nitrite (NEGATIVE) Urine Bilirubin (NEGATIVE) Urine Urobilinogen (0-1) mg/dL Ur Leukocyte Esterase (NEGATIVE) Urine WBC (Auto) (0-5) /HPF Urine RBC (Auto) (0-2) /HPF Urine Mucus (Auto) (NEGATIVE) /HPF Urine Culture Reflexed (NO) Urine Glucose (NEGATIVE) mg/dL 10/29/20 Range/Units 16:30 WBC 14.5 H (4.0-10.5) K/mm3 RBC 4.75 (4.1-5.4) M/mm3 Hgb 13.9 (12.0-16.0) gm/dl Hct 44.2 (35-47) % MCV 93.1 (78-100) fl MCH 29.3 (26-32) pg MCHC 31.4 L (32-36) g/dl RDW 13.9 (11.5-14.0) % Plt Count 356 (150-450) K/mm3 MPV 10.3 (7.5-11.0) fl Gran % 81.0 H (36.0-66.0) % Eos # (Auto) 0.14 (0-0.5) Absolute Lymphs (auto) 1.44 (1.0-4.6) Absolute Monos (auto) 1.16 (0.0-1.3) Lymphocytes % 9.9 L (24.0-44.0) % Monocytes % 8.0 (0.0-12.0) % Eosinophils % 1.0 (0.00-5.0) % Basophils % 0.1 (0.0-0.4) % Absolute Granulocytes 11.76 H (1.4-6.9) Basophils # 0.02 (0-0.4) PT (9.4-12.5) SECONDS INR (0.8-3.0) D-Dimer (215-500) ng/mL Sodium (137-145) mmol/L Potassium (3.5-5.1) mmol/L Chloride (98-107) mmol/L Carbon Dioxide (22-30) mmol/L Anion Gap (5-15) MEQ/L BUN (7-17) mg/dL Creatinine (0.52-1.04) mg/dL Estimated GFR ML/MIN Glucose (74-106) mg/dL Calcium (8.4-10.2) mg/dL Magnesium (1.6-2.3) mg/dL Total Bilirubin (0.2-1.3) mg/dL AST (14-36) U/L ALT (0-35) U/L Alkaline Phosphatase (38-126) U/L Troponin I (0.000-0.034) ng/mL NT-Pro-B Natriuret Pep (0-900) pg/mL Serum Total Protein (6.3-8.2) g/dL Albumin (3.5-5.0) g/dL Thyroxine (T4) (5.53-10.96) ug/dL TSH 3rd Generation (0.47-4.68) mIU/L Urine Color (YELLOW) Urine Appearance (CLEAR) Urine pH (5-6) Ur Specific Sutton (1.005-1.025) Urine Protein (Negative) Urine Ketones (NEGATIVE) Urine Blood (0-5) Pankaj/ul Urine Nitrite (NEGATIVE) Urine Bilirubin (NEGATIVE) Urine Urobilinogen (0-1) mg/dL Ur Leukocyte Esterase (NEGATIVE) Urine WBC (Auto) (0-5) /HPF Urine RBC (Auto) (0-2) /HPF Urine Mucus (Auto) (NEGATIVE) /HPF Urine Culture Reflexed (NO) Urine Glucose (NEGATIVE) mg/dL - Progress Progress: improved, re-examined Air Movement: good Progress Note: 10/29/20 19:53 Chest x-ray shows no acute cardiopulmonary process. CAT scan of the chest with contrast is negative for pulmonary embolism. There is cardiomegaly with bibasilar atelectasis present. There is pericardial effusion present. 10/29/20 20:45 Medical decision making: This patient has CHF with evidence of cardiomegaly and bibasilar atelectasis. She presented with shortness of breath symptoms. In addition, chest pain. Patient was found to have leukocytosis as well. I spoke with Dr. Hart who is the patient's primary care physician. We will admit her into the hospital with a Cardizem drip as well as providing her with diuretics. We will repeat labs in the morning. We will repeat EKG in the morning as well. I will start her on intravenous antibiotics as well because of her symptoms, bibasilar atelectasis and the leukocytosis. Blood Culture(s) Obtained: No Antibiotics given: No Discussed with : Rnoal Counseled pt/family regarding: lab results, diagnosis, rad results - Departure Departure Disposition: In-patient Admission Clinical Impression: Leukocytosis, CHF (congestive heart failure), Atrial fibrillation with RVR Condition: Fair Critical Care Time: No Referrals: KINSEY HART MD [Primary Care Provider] - Instructions: Heart Failure
[2020-10-29] MEDS ORDERED: BABY ASPIRIN 81 MG CHEW PO ONE (16:30)
[2020-10-29] MEDS ORDERED: Cardizem IV 50 MG/10 ML IV ONE ×2 (16:42→16:44)
[2020-10-29 16:56] LABS: Absolute Neutrophil Ct (ANC) 11.76 (1.4-6.9); BASOPHIL % 0.1 % (0.0-0.4); Basophil (Absolute #) 0.02 (0-0.4); Eosinophil (Absolute #) 0.14 (0-0.5); Hematocrit 44.2 % (35-47); Hemoglobin 13.9 gm/dl (12.0-16.0); Lymphocyte (Absolute #) 1.44 (1.0-4.6); Lymphocytes % 9.9 % (24.0-44.0); Mean Cell Volume 93.1 fl (78-100); Mean Corpuscular Hemoglobin 29.3 pg (26-32); Mean Corpuscular Hgb Concent. 31.4 g/dl (32-36); Mean Platelet Volume 10.3 fl (7.5-11.0); Monocyte (Absolute #) 1.16 (0.0-1.3); Platelet Count 356 K/mm3 (150-450); Red Blood Count 4.75 M/mm3 (4.1-5.4); Red Cell Distribution Width 13.9 % (11.5-14.0); White Blood Count 14.5 K/mm3 (4.0-10.5)
[2020-10-29] MEDS ORDERED: CARDIZEM DRIP 100 MG/100 ML D5W 100 ML IV PRN ×2 (16:58→20:53)
[2020-10-29] MEDS ORDERED: CARDIZEM DRIP 100 MG/100 ML D5W 100 ML IV ONE (17:00)
--- NOTE | 2020-10-29 17:01 | XRAY ---
Indication: Chest pain and tachycardia. Comparison: October 23, 2020. Portable chest again demonstrates minimal left base subsegmental atelectasis/scarring. Remaining heart and lungs unremarkable. No new/acute abnormalities.
[2020-10-29 17:07] LABS: INR 1.02 (0.8-3.0)
[2020-10-29] MEDS ORDERED: MORPHINE SULFATE 4 MG INJ IV ONE ×2 (17:13→20:13)
[2020-10-29] MEDS ORDERED: Zofran 4 MG/2 ML VIAL IV ONE (17:13)
[2020-10-29] MEDS ORDERED: Zofran 4 MG/2 ML VIAL ONE (17:16)
[2020-10-29] MEDS ORDERED: MORPHINE SULFATE 4 MG INJ ONE ×2 (17:17→20:27)
[2020-10-29 17:20] LABS: ALBUMIN 4.2 g/dL (3.5-5.0); ALKALINE PHOSPHATASE 97 U/L (38-126); ANION GAP 16.9 MEQ/L (5-15); BLOOD UREA NITROGEN 14 mg/dL (7-17); CHLORIDE 101 mmol/L (98-107); Calcium 9.8 mg/dL (8.4-10.2); Carbon Dioxide 23 mmol/L (22-30); EST GLOMERULAR FILTRATION RATE > 60.0 ML/MIN; Glucose 94 mg/dL (74-106); NT PRO BNP 709 pg/mL (0-900); SGOT/AST 31 U/L (14-36); SGPT/ALT 16 U/L (0-35); SODIUM 137 mmol/L (137-145); Total Protein 7.3 g/dL (6.3-8.2)
[2020-10-29 17:41] LABS: MAGNESIUM 2.1 mg/dL (1.6-2.3); TSH, 3RD Generation 2.71 mIU/L (0.47-4.68)
[2020-10-29 18:52] LABS: Appearance CLEAR (CLEAR); Bilirubin NEGATIVE (NEGATIVE); Blood NEGATIVE Ery/ul (0-5); Glucose NEGATIVE (NEGATIVE); Ketones SMALL (NEGATIVE); Leukocyte Esterase NEGATIVE (NEGATIVE); Mucus SLIGHT /HPF (NEGATIVE); Nitrite NEGATIVE (NEGATIVE); Protein,Urine Dip NEGATIVE (Negative); Specific Gravity 1.021 (1.005-1.025); Urobilinogen NEGATIVE mg/dL (0-1)
[2020-10-29] MEDS ORDERED: Lasix 40 MG/4 ML IV ONE (19:51)
[2020-10-29] MEDS ORDERED: Lasix 40 MG/4 ML ONE (20:27)
[2020-10-29] MEDS ORDERED: ENOXAPARIN SODIUM SQ SCH (22:00)
[2020-10-30] MEDS ORDERED: Zofran 4 MG/2 ML VIAL IV PRN (00:30)
[2020-10-30] MEDS ORDERED: Sodium Chloride 0.9% 1000 ML 0 ML ONE (02:13)
[2020-10-30] MEDS ORDERED: Cardizem CD 120 MG PO ONE (02:22)
[2020-10-30] MEDS: MORPHINE SULFATE 4 MG INJ IV PRN ×4 (03:24→18:39)
[2020-10-30 06:31] LABS: Hemoglobin 12.4 gm/dl (12.0-16.0); Mean Cell Volume 94.1 fl (78-100); Mean Corpuscular Hemoglobin 29.2 pg (26-32); Mean Platelet Volume 11.2 fl (7.5-11.0); Platelet Count 337 K/mm3 (150-450); Red Blood Count 4.25 M/mm3 (4.1-5.4); Red Cell Distribution Width 14.4 % (11.5-14.0); White Blood Count 20.5 K/mm3 (4.0-10.5)
[2020-10-30 07:42] LABS: BAND 34 % (0.0-2.0); Lymphocytes 9 % (24-44); Monocyte 11 % (0.0-12.0); Neutrophils 46 % (36.0-66.0); Total Cells Counted 100
[2020-10-30 07:43] LABS: Absolute Neutrophil Ct (ANC) 16.38 (1.4-6.9); Platelet Estimate NORMAL (NORMAL)
[2020-10-30 07:46] LABS: ALBUMIN 3.9 g/dL (3.5-5.0); ALKALINE PHOSPHATASE 63 U/L (38-126); ANION GAP 17.2 MEQ/L (5-15); BLOOD UREA NITROGEN 18 mg/dL (7-17); CHLORIDE 99 mmol/L (98-107); Calcium 9.2 mg/dL (8.4-10.2); Carbon Dioxide 23 mmol/L (22-30); Creatinine 1 0.84 mg/dL (0.52-1.04); EST GLOMERULAR FILTRATION RATE > 60.0 ML/MIN; Glucose 134 mg/dL (74-106); NT PRO BNP 1050 pg/mL (0-900); Potassium 4.4 mmol/L (3.5-5.1); SGOT/AST 19 U/L (14-36); SGPT/ALT 16 U/L (0-35); SODIUM 135 mmol/L (137-145); TROPONIN < 0.012 ng/mL (0.000-0.034); Total Protein 6.7 g/dL (6.3-8.2)
--- NOTE | 2020-10-30 08:43 | XRAY ---
Indication: Chest pain. Elevated d-dimer. Multiple contiguous axial images obtained through the chest using 80 cc Isovue 370 contrast and PE protocol. Comparison: June 19, 2014. There is good opacification of the pulmonary arteries to include the lobar and segmental branches. No pulmonary embolus. Heart is now enlarged with new moderate pericardial effusion. Aorta is normal in course and caliber without aneurysm/dissection. No pathologic mediastinal/hilar lymphadenopathy. New small hiatal hernia. Lungs demonstrates worsening moderate bibasilar subsegmental atelectasis/scarring. No suspicious pulmonary mass/nodule, infiltrate, or effusion. Bony thorax intact again with mild osteopenia and minimal degenerative changes throughout the spine. Limited upper abdomen unremarkable. Impression: 1. Continue negative pulmonary embolus. 2. New cardiomegaly with pericardial effusion. Echocardiogram may yield further information. 3. Worsening bibasilar subsegmental atelectasis/scarring. No acute cardiopulmonary abnormalities. 4. New small hiatal hernia.
[2020-10-30] MEDS ORDERED: Ativan 1 MG PO PRN (09:42)
[2020-10-30] MEDS ORDERED: Naprosyn 500 MG PO PRN (09:42)
[2020-10-30] MEDS ORDERED: VIT K2 PO SCH (09:45)
[2020-10-30] MEDS ORDERED: [UNRECOGNIZED DRUG - OTHER] PO SCH (09:45)
[2020-10-30] MEDS ORDERED: CHOLECALCIFEROL PO SCH (09:45)
[2020-10-30] MEDS ORDERED: MEDICATION INTERVENTION MC SCH (10:00)
[2020-10-30] MEDS ORDERED: OLUMIANT PO SCH (11:00)
[2020-10-30] MEDS: ELIQUIS 2.5 MG TABLET PO SCH ×2 (11:18→21:18)
[2020-10-30] MEDS: SYNTHROID 25 MCG PO SCH (11:19)
[2020-10-30] MEDS: Miralax Powder 17GM PACKET PO SCH (11:20)
--- NOTE | 2020-10-30 13:21 | PCM.HP ---
History of Present Illness - Chief Complaint Chief Complaint: shortness of breath for 1 day History of Present Illness: is a 75 year old female.has a history of asthma, hypothyroidism and anxiety. She was seen in this emergency department on 10/23/2020 and observed because of chest pain issues. Patient began having some chest pain today and felt her heart racing. Patient presents in atrial fibrillation with RVR. This was different than her prior EKG from 10/24/2019 which showed sinus tachycardia. Patient has no primary cardiac issues. Timing/Duration: today Activities at Onset: none Quality: aching Location: substernal, central Chest Pain Radiation: no radiation Severity of Pain-Max: moderate Severity of Pain-Current: moderate Modifying Factors: Improves With: nothing Associated Symptoms: denies symptoms Prior Chest Pain/Cardiac Workup: recently seen/treated, recent hospitalization - Review of Systems Constitutional: No Fever, No Chills Eyes: No Symptoms Ears, Nose, & Throat: No Symptoms Respiratory: Cough, Orthopnea, Short Of Breath Cardiac: No Chest Pain, No Edema, No Syncope Abdominal/Gastrointestinal: No Abdominal Pain, No Nausea, No Vomiting, No Diarrhea Genitourinary Symptoms: No Dysuria Musculoskeletal: No Back Pain, No Neck Pain Skin: No Rash Neurological: No Dizziness, No Focal Weakness, No Sensory Changes Psychological: No Symptoms Endocrine: No Symptoms Hematologic/Lymphatic: No Symptoms Immunological/Allergic: No Symptoms Medications & Allergies Home Medications: Home Medication List Cholecalciferol (Vitd3)/Vit K2 [D3 + K2 Dots 1,000 Units Tab] 1 tab PO WEEKLY 11/10/16 [History Confirmed 10/30/20] Lorazepam 1 mg [Ativan 1 MG] 1 mg PO BID PRN PRN 11/10/16 [History Confirmed 10/30/20] Magnesium Hydroxide 30 ml [Milk of Magnesia 30 ml] 30 - 60 ml PO QHS 11/10/16 [History Confirmed 10/29/20] Polyethylene Glycol 3350 17 gm [Miralax Powder 17GM PACKET] 1 packet PO QAM 11/10/16 [History Confirmed 10/29/20] Levothyroxine Sodium 25 Mcg [Synthroid 25 Mcg] 37.5 mcg PO DAILY 10/29/17 [History Confirmed 10/29/20] Naproxen 500 mg [Naprosyn 500 MG] 500 mg PO BIDPRN PRN #10 tablet 10/24/20 [Rx Confirmed 10/29/20] Allergies/Adverse Reactions: Allergies Allergy/AdvReac Type Severity Reaction Status Date / Time amoxicillin trihydrate Allergy Verified 10/30/20 02:14 [From Augmentin] Penicillins Allergy Verified 10/30/20 02:14 potassium clavulanate Allergy Verified 10/30/20 02:14 [From Augmentin] Sulfa (Sulfonamide Allergy Verified 10/30/20 02:14 Antibiotics) - Past Medical History Past Medical History: Yes Neurological History: No Pertinent History ENT History: Cataracts Cardiac History: No Pertinent History Respiratory History: Asthma Endocrine Medical History: Hypothyroidism Musculoskelatal History: No Pertinent History GI Medical History: No Pertinent History History: No Pertinent History Pyscho-Social History: Anxiety Reproductive Disorders: No Pertinent History Comment: immune deficiency, skin cancer - Female History Are you now?: No - Past Surgical History Past Surgical History: Yes Neuro Surgical History: No Pertinent History Cardiac History: No Pertinent History Respiratory Surgery: No Pertinent History GI Surgical History: Appendectomy Genitourinary Surgical Hx: No Pertinent History Musculskeletal Surgical Hx: No Pertinent History Female Surgical History: Hysterectomy Other Surgical History: sinus surgery - Social History Smoking Status: Never smoker Exposure to second hand smoke: Yes Alcohol: None Drug Use: none - Physical Exam Vital Signs: Vital Signs - 24 hr Temp Pulse Resp BP BP Pulse Ox 10/30/20 12:00 97.6 F 97 H 18 119/71 95 10/30/20 08:27 96 10/30/20 08:00 98.0 F 100 H 22 123/85 95 10/30/20 04:58 88 19 90/64 92 L 10/30/20 04:00 87 19 84/65 91 L 10/30/20 03:00 91 H 25 H 118/73 95 10/30/20 02:40 97.7 F 93 H 30 H 98/67 95 10/30/20 02:18 93 L 10/30/20 02:17 97.7 F 95 H 32 H 104/73 90 L 10/30/20 01:00 87 20 87/59 95 10/30/20 00:30 88 22 84/58 95 09/10/21 00:00 87 18 82/55 96 10/29/20 23:30 90 20 87/59 96 10/29/20 23:00 90 24 84/59 96 10/29/20 22:30 90 18 86/57 94 L 10/29/20 22:00 95 H 20 91/60 95 10/29/20 21:30 95 H 22 93/62 96 10/29/20 21:00 100 H 21 91/62 96 10/29/20 20:00 103 H 22 109/83 96 10/29/20 19:00 96 H 21 98/66 94 L 10/29/20 17:30 104 H 24 125/93 95 10/29/20 17:03 103 H 20 139/85 10/29/20 16:58 109 H 20 139/85 94 L 10/29/20 16:35 98 10/29/20 16:26 97.4 F 132 H 134/91 98 General Appearance: no apparent distress, alert Neurologic Exam: alert, oriented x 3, cooperative, normal mood/affect, nml cerebellar function, nml station & gait, sensation nml, No motor deficits Eye Exam: PERRL/EOMI, eyes nml inspection Ears, Nose, Throat Exam: normal ENT inspection, TMs normal, pharynx normal, moist mucous membranes Neck Exam: normal inspection, non-tender, supple, full range of motion Respiratory Exam: diminished breath sounds, crackles/rales, rhonchi, wheezing, No respiratory distress Cardiovascular Exam: regular rate/rhythm, normal heart sounds, normal peripheral pulses Gastrointestinal/Abdomen Exam: soft, normal bowel sounds, No tenderness, No mass Back Exam: normal inspection, normal range of motion, No CVA tenderness, No vertebral tenderness Extremity Exam: normal inspection, normal range of motion, pelvis stable Skin Exam: normal color, warm, dry, No rash Lymphatic Exam: No adenopathy Results - Labs Lab/Micro Results: Lab Results-Last 24 Hours 10/29/20 10/29/20 10/29/20 Range/Units 16:30 16:30 16:40 WBC 14.5 H (4.0-10.5) K/mm3 RBC 4.75 (4.1-5.4) M/mm3 Hgb 13.9 (12.0-16.0) gm/dl Hct 44.2 (35-47) % MCV 93.1 (78-100) fl MCH 29.3 (26-32) pg MCHC 31.4 L (32-36) g/dl RDW 13.9 (11.5-14.0) % Plt Count 356 (150-450) K/mm3 MPV 10.3 (7.5-11.0) fl Gran % 81.0 H (36.0-66.0) % Eos # (Auto) 0.14 (0-0.5) Absolute Lymphs (auto) 1.44 (1.0-4.6) Absolute Monos (auto) 1.16 (0.0-1.3) Lymphocytes % 9.9 L (24.0-44.0) % Monocytes % 8.0 (0.0-12.0) % Eosinophils % 1.0 (0.00-5.0) % Basophils % 0.1 (0.0-0.4) % Absolute Granulocytes 11.76 H (1.4-6.9) Segmented Neutrophils (36.0-66.0) % Band Neutrophils (0.0-2.0) % Lymphocytes (Manual) (24-44) % Monocytes (Manual) (0.0-12.0) % Basophils # 0.02 (0-0.4) Platelet Estimate (NORMAL) RBC Morphology ESR (0-20) mm/hr PT (9.4-12.5) SECONDS INR (0.8-3.0) D-Dimer (215-500) ng/mL Sodium (137-145) mmol/L Potassium (3.5-5.1) mmol/L Chloride (98-107) mmol/L Carbon Dioxide (22-30) mmol/L Anion Gap (5-15) MEQ/L BUN (7-17) mg/dL Creatinine (0.52-1.04) mg/dL Estimated GFR ML/MIN Glucose (74-106) mg/dL Calcium (8.4-10.2) mg/dL Magnesium 2.1 (1.6-2.3) mg/dL Total Bilirubin (0.2-1.3) mg/dL AST (14-36) U/L ALT (0-35) U/L Alkaline Phosphatase (38-126) U/L Troponin I (0.000-0.034) ng/mL NT-Pro-B Natriuret Pep (0-900) pg/mL Serum Total Protein (6.3-8.2) g/dL Albumin (3.5-5.0) g/dL Thyroxine (T4) 11.9 H (5.53-10.96) ug/dL TSH 3rd Generation 2.710 (0.47-4.68) mIU/L Urine Color (YELLOW) Urine Appearance (CLEAR) Urine pH (5-6) Ur Specific [place] (1.005-1.025) Urine Protein (Negative) Urine Ketones (NEGATIVE) Urine Blood (0-5) Pankaj/ul Urine Nitrite (NEGATIVE) Urine Bilirubin (NEGATIVE) Urine Urobilinogen (0-1) mg/dL Ur Leukocyte Esterase (NEGATIVE) Urine WBC (Auto) (0-5) /HPF Urine RBC (Auto) (0-2) /HPF Urine Mucus (Auto) (NEGATIVE) /HPF Urine Culture Reflexed (NO) Urine Glucose (NEGATIVE) mg/dL SARS-CoV-2 (PCR) (NEGATIVE) 10/29/20 10/29/20 10/29/20 Range/Units 16:59 16:59 16:59 WBC (4.0-10.5) K/mm3 RBC (4.1-5.4) M/mm3 Hgb (12.0-16.0) gm/dl Hct (35-47) % MCV (78-100) fl MCH (26-32) pg MCHC (32-36) g/dl RDW (11.5-14.0) % Plt Count (150-450) K/mm3 MPV (7.5-11.0) fl Gran % (36.0-66.0) % Eos # (Auto) (0-0.5) Absolute Lymphs (auto) (1.0-4.6) Absolute Monos (auto) (0.0-1.3) Lymphocytes % (24.0-44.0) % Monocytes % (0.0-12.0) % Eosinophils % (0.00-5.0) % Basophils % (0.0-0.4) % Absolute Granulocytes (1.4-6.9) Segmented Neutrophils (36.0-66.0) % Band Neutrophils (0.0-2.0) % Lymphocytes (Manual) (24-44) % Monocytes (Manual) (0.0-12.0) % Basophils # (0-0.4) Platelet Estimate (NORMAL) RBC Morphology ESR (0-20) mm/hr PT 12.0 (9.4-12.5) SECONDS INR 1.02 (0.8-3.0) D-Dimer 1437 H* (215-500) ng/mL Sodium 137 (137-145) mmol/L Potassium 4.0 (3.5-5.1) mmol/L Chloride 101 (98-107) mmol/L Carbon Dioxide 23 (22-30) mmol/L Anion Gap 16.9 H (5-15) MEQ/L BUN 14 (7-17) mg/dL Creatinine 0.60 (0.52-1.04) mg/dL Estimated GFR > 60.0 ML/MIN Glucose 94 (74-106) mg/dL Calcium 9.8 (8.4-10.2) mg/dL Magnesium (1.6-2.3) mg/dL Total Bilirubin 0.80 (0.2-1.3) mg/dL AST 31 (14-36) U/L ALT 16 (0-35) U/L Alkaline Phosphatase 97 (38-126) U/L Troponin I < 0.012 (0.000-0.034) ng/mL NT-Pro-B Natriuret Pep 709 (0-900) pg/mL Serum Total Protein 7.3 (6.3-8.2) g/dL Albumin 4.2 (3.5-5.0) g/dL Thyroxine (T4) (5.53-10.96) ug/dL TSH 3rd Generation (0.47-4.68) mIU/L Urine Color (YELLOW) Urine Appearance (CLEAR) Urine pH (5-6) Ur Specific [place] (1.005-1.025) Urine Protein (Negative) Urine Ketones (NEGATIVE) Urine Blood (0-5) Pankaj/ul Urine Nitrite (NEGATIVE) Urine Bilirubin (NEGATIVE) Urine Urobilinogen (0-1) mg/dL Ur Leukocyte Esterase (NEGATIVE) Urine WBC (Auto) (0-5) /HPF Urine RBC (Auto) (0-2) /HPF Urine Mucus (Auto) (NEGATIVE) /HPF Urine Culture Reflexed (NO) Urine Glucose (NEGATIVE) mg/dL SARS-CoV-2 (PCR) (NEGATIVE) 10/29/20 10/29/20 10/29/20 Range/Units 18:27 20:10 22:41 WBC (4.0-10.5) K/mm3 RBC (4.1-5.4) M/mm3 Hgb (12.0-16.0) gm/dl Hct (35-47) % MCV (78-100) fl MCH (26-32) pg MCHC (32-36) g/dl RDW (11.5-14.0) % Plt Count (150-450) K/mm3 MPV (7.5-11.0) fl Gran % (36.0-66.0) % Eos # (Auto) (0-0.5) Absolute Lymphs (auto) (1.0-4.6) Absolute Monos (auto) (0.0-1.3) Lymphocytes % (24.0-44.0) % Monocytes % (0.0-12.0) % Eosinophils % (0.00-5.0) % Basophils % (0.0-0.4) % Absolute Granulocytes (1.4-6.9) Segmented Neutrophils (36.0-66.0) % Band Neutrophils (0.0-2.0) % Lymphocytes (Manual) (24-44) % Monocytes (Manual) (0.0-12.0) % Basophils # (0-0.4) Platelet Estimate (NORMAL) RBC Morphology ESR (0-20) mm/hr PT (9.4-12.5) SECONDS INR (0.8-3.0) D-Dimer (215-500) ng/mL Sodium (137-145) mmol/L Potassium (3.5-5.1) mmol/L Chloride (98-107) mmol/L Carbon Dioxide (22-30) mmol/L Anion Gap (5-15) MEQ/L BUN (7-17) mg/dL Creatinine (0.52-1.04) mg/dL Estimated GFR ML/MIN Glucose (74-106) mg/dL Calcium (8.4-10.2) mg/dL Magnesium (1.6-2.3) mg/dL Total Bilirubin (0.2-1.3) mg/dL AST (14-36) U/L ALT (0-35) U/L Alkaline Phosphatase (38-126) U/L Troponin I < 0.012 (0.000-0.034) ng/mL NT-Pro-B Natriuret Pep (0-900) pg/mL Serum Total Protein (6.3-8.2) g/dL Albumin (3.5-5.0) g/dL Thyroxine (T4) (5.53-10.96) ug/dL TSH 3rd Generation (0.47-4.68) mIU/L Urine Color YELLOW (YELLOW) Urine Appearance CLEAR (CLEAR) Urine pH 8.0 (5-6) Ur Specific [place] 1.021 (1.005-1.025) Urine Protein NEGATIVE (Negative) Urine Ketones SMALL (NEGATIVE) Urine Blood NEGATIVE (0-5) Pankaj/ul Urine Nitrite NEGATIVE (NEGATIVE) Urine Bilirubin NEGATIVE (NEGATIVE) Urine Urobilinogen NEGATIVE (0-1) mg/dL Ur Leukocyte Esterase NEGATIVE (NEGATIVE) Urine WBC (Auto) NONE (0-5) /HPF Urine RBC (Auto) NONE (0-2) /HPF Urine Mucus (Auto) SLIGHT (NEGATIVE) /HPF Urine Culture Reflexed NO (NO) Urine Glucose NEGATIVE (NEGATIVE) mg/dL SARS-CoV-2 (PCR) NEGATIVE (NEGATIVE) 10/29/20 10/30/20 10/30/20 Range/Units 22:45 02:45 06:00 WBC (4.0-10.5) K/mm3 RBC (4.1-5.4) M/mm3 Hgb (12.0-16.0) gm/dl Hct (35-47) % MCV (78-100) fl MCH (26-32) pg MCHC (32-36) g/dl RDW (11.5-14.0) % Plt Count (150-450) K/mm3 MPV (7.5-11.0) fl Gran % (36.0-66.0) % Eos # (Auto) (0-0.5) Absolute Lymphs (auto) (1.0-4.6) Absolute Monos (auto) (0.0-1.3) Lymphocytes % (24.0-44.0) % Monocytes % (0.0-12.0) % Eosinophils % (0.00-5.0) % Basophils % (0.0-0.4) % Absolute Granulocytes (1.4-6.9) Segmented Neutrophils (36.0-66.0) % Band Neutrophils (0.0-2.0) % Lymphocytes (Manual) (24-44) % Monocytes (Manual) (0.0-12.0) % Basophils # (0-0.4) Platelet Estimate (NORMAL) RBC Morphology ESR (0-20) mm/hr PT (9.4-12.5) SECONDS INR (0.8-3.0) D-Dimer (215-500) ng/mL Sodium 135 L (137-145) mmol/L Potassium 4.4 (3.5-5.1) mmol/L Chloride 99 (98-107) mmol/L Carbon Dioxide 23 (22-30) mmol/L Anion Gap 17.2 H (5-15) MEQ/L BUN 18 H (7-17) mg/dL Creatinine 0.84 (0.52-1.04) mg/dL Estimated GFR > 60.0 ML/MIN Glucose 134 H (74-106) mg/dL Calcium 9.2 (8.4-10.2) mg/dL Magnesium (1.6-2.3) mg/dL Total Bilirubin 1.10 (0.2-1.3) mg/dL AST 19 (14-36) U/L ALT 16 (0-35) U/L Alkaline Phosphatase 63 (38-126) U/L Troponin I < 0.012 < 0.012 < 0.012 (0.000-0.034) ng/mL NT-Pro-B Natriuret Pep 1050 H (0-900) pg/mL Serum Total Protein 6.7 (6.3-8.2) g/dL Albumin 3.9 (3.5-5.0) g/dL Thyroxine (T4) (5.53-10.96) ug/dL TSH 3rd Generation (0.47-4.68) mIU/L Urine Color (YELLOW) Urine Appearance (CLEAR) Urine pH (5-6) Ur Specific [place] (1.005-1.025) Urine Protein (Negative) Urine Ketones (NEGATIVE) Urine Blood (0-5) Pankaj/ul Urine Nitrite (NEGATIVE) Urine Bilirubin (NEGATIVE) Urine Urobilinogen (0-1) mg/dL Ur Leukocyte Esterase (NEGATIVE) Urine WBC (Auto) (0-5) /HPF Urine RBC (Auto) (0-2) /HPF Urine Mucus (Auto) (NEGATIVE) /HPF Urine Culture Reflexed (NO) Urine Glucose (NEGATIVE) mg/dL SARS-CoV-2 (PCR) (NEGATIVE) 10/30/20 10/30/20 10/30/20 Range/Units 06:00 09:33 09:33 WBC 20.5 H (4.0-10.5) K/mm3 RBC 4.25 (4.1-5.4) M/mm3 Hgb 12.4 (12.0-16.0) gm/dl Hct 40.0 (35-47) % MCV 94.1 (78-100) fl MCH 29.2 (26-32) pg MCHC 31.0 L (32-36) g/dl RDW 14.4 H (11.5-14.0) % Plt Count 337 (150-450) K/mm3 MPV 11.2 H (7.5-11.0) fl Gran % (36.0-66.0) % Eos # (Auto) (0-0.5) Absolute Lymphs (auto) (1.0-4.6) Absolute Monos (auto) (0.0-1.3) Lymphocytes % (24.0-44.0) % Monocytes % (0.0-12.0) % Eosinophils % (0.00-5.0) % Basophils % (0.0-0.4) % Absolute Granulocytes 16.38 H (1.4-6.9) Segmented Neutrophils 46 (36.0-66.0) % Band Neutrophils 34 H (0.0-2.0) % Lymphocytes (Manual) 9 L (24-44) % Monocytes (Manual) 11 (0.0-12.0) % Basophils # (0-0.4) Platelet Estimate NORMAL (NORMAL) RBC Morphology NORMAL ESR 69 H (0-20) mm/hr PT (9.4-12.5) SECONDS INR (0.8-3.0) D-Dimer (215-500) ng/mL Sodium (137-145) mmol/L Potassium (3.5-5.1) mmol/L Chloride (98-107) mmol/L Carbon Dioxide (22-30) mmol/L Anion Gap (5-15) MEQ/L BUN (7-17) mg/dL Creatinine (0.52-1.04) mg/dL Estimated GFR ML/MIN Glucose (74-106) mg/dL Calcium (8.4-10.2) mg/dL Magnesium (1.6-2.3) mg/dL Total Bilirubin (0.2-1.3) mg/dL AST (14-36) U/L ALT (0-35) U/L Alkaline Phosphatase (38-126) U/L Troponin I (0.000-0.034) ng/mL NT-Pro-B Natriuret Pep (0-900) pg/mL Serum Total Protein (6.3-8.2) g/dL Albumin (3.5-5.0) g/dL Thyroxine (T4) (5.53-10.96) ug/dL TSH 3rd Generation 1.620 (0.47-4.68) mIU/L Urine Color (YELLOW) Urine Appearance (CLEAR) Urine pH (5-6) Ur Specific [place] (1.005-1.025) Urine Protein (Negative) Urine Ketones (NEGATIVE) Urine Blood (0-5) Pankaj/ul Urine Nitrite (NEGATIVE) Urine Bilirubin (NEGATIVE) Urine Urobilinogen (0-1) mg/dL Ur Leukocyte Esterase (NEGATIVE) Urine WBC (Auto) (0-5) /HPF Urine RBC (Auto) (0-2) /HPF Urine Mucus (Auto) (NEGATIVE) /HPF Urine Culture Reflexed (NO) Urine Glucose (NEGATIVE) mg/dL SARS-CoV-2 (PCR) (NEGATIVE) 10/30/20 Range/Units 09:53 WBC (4.0-10.5) K/mm3 RBC (4.1-5.4) M/mm3 Hgb (12.0-16.0) gm/dl Hct (35-47) % MCV (78-100) fl MCH (26-32) pg MCHC (32-36) g/dl RDW (11.5-14.0) % Plt Count (150-450) K/mm3 MPV (7.5-11.0) fl Gran % (36.0-66.0) % Eos # (Auto) (0-0.5) Absolute Lymphs (auto) (1.0-4.6) Absolute Monos (auto) (0.0-1.3) Lymphocytes % (24.0-44.0) % Monocytes % (0.0-12.0) % Eosinophils % (0.00-5.0) % Basophils % (0.0-0.4) % Absolute Granulocytes (1.4-6.9) Segmented Neutrophils (36.0-66.0) % Band Neutrophils (0.0-2.0) % Lymphocytes (Manual) (24-44) % Monocytes (Manual) (0.0-12.0) % Basophils # (0-0.4) Platelet Estimate (NORMAL) RBC Morphology ESR (0-20) mm/hr PT (9.4-12.5) SECONDS INR (0.8-3.0) D-Dimer (215-500) ng/mL Sodium (137-145) mmol/L Potassium (3.5-5.1) mmol/L Chloride (98-107) mmol/L Carbon Dioxide (22-30) mmol/L Anion Gap (5-15) MEQ/L BUN (7-17) mg/dL Creatinine (0.52-1.04) mg/dL Estimated GFR ML/MIN Glucose (74-106) mg/dL Calcium (8.4-10.2) mg/dL Magnesium (1.6-2.3) mg/dL Total Bilirubin (0.2-1.3) mg/dL AST (14-36) U/L ALT (0-35) U/L Alkaline Phosphatase (38-126) U/L Troponin I (0.000-0.034) ng/mL NT-Pro-B Natriuret Pep (0-900) pg/mL Serum Total Protein (6.3-8.2) g/dL Albumin (3.5-5.0) g/dL Thyroxine (T4) 8.76 (5.53-10.96) ug/dL TSH 3rd Generation (0.47-4.68) mIU/L Urine Color (YELLOW) Urine Appearance (CLEAR) Urine pH (5-6) Ur Specific [place] (1.005-1.025) Urine Protein (Negative) Urine Ketones (NEGATIVE) Urine Blood (0-5) Pankaj/ul Urine Nitrite (NEGATIVE) Urine Bilirubin (NEGATIVE) Urine Urobilinogen (0-1) mg/dL Ur Leukocyte Esterase (NEGATIVE) Urine WBC (Auto) (0-5) /HPF Urine RBC (Auto) (0-2) /HPF Urine Mucus (Auto) (NEGATIVE) /HPF Urine Culture Reflexed (NO) Urine Glucose (NEGATIVE) mg/dL SARS-CoV-2 (PCR) (NEGATIVE) - Radiology Impressions Radiology Exams & Impressions: Radiology Procedures Category Date Time Status CHEST 1 VIEW (PORTABLE) Stat Exams 10/29/20 16:31 Completed CHEST WITH CONTRAST [CT] Stat Exams 10/29/20 18:13 Completed ECHO W/2D AND DOPPLER [US] Routine Exams 10/30/20 11:10 Taken - Other Procedures and Tests Respiratory Therapy 10/30/20 02:18 Oxygen NASAL CANNULA 2 lpm Assessment/Plan (1) Atrial fibrillation with RVR Current Visit: Yes Status: Acute Assessment & Plan: Chief Complaint Diagnosis CHF, leukocytosis Allergies Allergy/AdvReac Type Severity Reaction Status Date / Time amoxicillin trihydrate Allergy Verified 10/30/20 02:14 [From Augmentin] Penicillins Allergy Verified 10/30/20 02:14 potassium clavulanate Allergy Verified 10/30/20 02:14 [From Augmentin] Sulfa (Sulfonamide Allergy Verified 10/30/20 02:14 Antibiotics) Vital Signs (Last 24 hours) Temp Pulse Resp BP BP Pulse Ox 10/30/20 12:00 97.6 F 97 H 18 119/71 95 10/30/20 08:27 96 10/30/20 08:00 98.0 F 100 H 22 123/85 95 10/30/20 04:58 88 19 90/64 92 L 10/30/20 04:00 87 19 84/65 91 L 10/30/20 03:00 91 H 25 H 118/73 95 10/30/20 02:40 97.7 F 93 H 30 H 98/67 95 10/30/20 02:18 93 L 10/30/20 02:17 97.7 F 95 H 32 H 104/73 90 L 10/30/20 01:00 87 20 87/59 95 10/30/20 00:30 88 22 84/58 95 10/30/20 00:00 87 18 82/55 96 10/29/20 23:30 90 20 87/59 96 10/29/20 23:00 90 24 84/59 96 10/29/20 22:30 90 18 86/57 94 L 10/29/20 22:00 95 H 20 91/60 95 10/29/20 21:30 95 H 22 93/62 96 10/29/20 21:00 100 H 21 91/62 96 10/29/20 20:00 103 H 22 109/83 96 10/29/20 19:00 96 H 21 98/66 94 L 10/29/20 17:30 104 H 24 125/93 95 10/29/20 17:03 103 H 20 139/85 10/29/20 16:58 109 H 20 139/85 94 L 10/29/20 16:35 98 10/29/20 16:26 97.4 F 132 H 134/91 98 Current Medications Generic Name Dose Route Start Last Admin Trade Name Freq PRN Reason Stop Dose Admin Acetaminophen 650 mg 10/30/20 00:30 Tylenol 325 Mg PO 11/29/20 00:29 Q4H PRN PRN PAIN, FEVER, HEADACHE Apixaban 5 mg 10/30/20 10:00 10/30/20 11:18 Eliquis 2.5 Mg Tablet PO 11/29/20 09:59 5 mg BID NAS Administration Diltiazem HCl 120 mg 10/30/20 13:00 Cardizem Cd 120 Mg PO 11/29/20 12:59 DAILY NAS Furosemide 20 mg 10/30/20 13:00 Lasix 20 Mg/2 Ml IV 11/29/20 12:59 DAILY NAS Ceftriaxone Sodium/Dextrose 1 g in 50 mls @ 100 mls/hr 10/30/20 13:00 Rocephin 1 Gm-D5w 50 Ml Bag IV 11/02/20 12:59 DAILY NAS Levothyroxine Sodium 37.5 mcg 10/30/20 10:00 10/30/20 11:19 Synthroid 25 Mcg PO 11/29/20 09:59 37.5 mcg DAILY NAS Administration Lorazepam 1 mg 10/30/20 09:42 Ativan 1 Mg PO 11/29/20 09:41 BID PRN PRN ANXIETY Magnesium Hydroxide 0 ml 10/30/20 22:00 Milk Of Magnesia 30 Ml PO 11/29/20 21:59 QHS NAS Miscellaneous Information 1 each 10/30/20 10:00 Medication Intervention MC 11/29/20 09:59 .RN TO CHECK NAS Morphine Sulfate 4 mg 10/30/20 00:30 10/30/20 08:31 Morphine Sulfate 4 Mg Inj IV 11/04/20 00:29 4 mg Q4H PRN PRN Administration PAIN Naproxen 500 mg 10/30/20 09:42 Naprosyn 500 Mg PO 11/29/20 09:41 BIDPRN PRN PAIN Ondansetron HCl 4 mg 10/30/20 00:30 Zofran 4 Mg/2 Ml Vial IV 11/29/20 00:29 Q6H PRN PRN NAUSEA/VOMITING Polyethylene Glycol 17 gm 10/30/20 10:00 10/30/20 11:20 Miralax Powder 17gm Packet PO 11/29/20 09:59 17 gm QAM NAS Administration Potassium Chloride 10 meq 10/30/20 13:00 Klor Con 10 Meq PO 11/29/20 12:59 BID NAS Discontinued Medications Generic Name Dose Route Start Last Admin Trade Name Freq PRN Reason Stop Dose Admin Aspirin 324 mg 10/29/20 16:30 10/29/20 16:36 Baby Aspirin 81 Mg Chew PO 10/29/20 16:31 324 mg STAT ONE Administration Diltiazem HCl 15 mg 10/29/20 16:42 10/29/20 16:45 Cardizem Iv 50 Mg/10 Ml IV 10/29/20 16:43 15 mg STAT ONE Administration Diltiazem HCl Confirm 10/29/20 16:44 Cardizem Iv 50 Mg/10 Ml Administered 10/29/20 16:45 Dose 50 mg IV .STK-MED ONE Diltiazem HCl 120 mg 10/30/20 02:22 10/30/20 02:28 Cardizem Cd 120 Mg PO 10/30/20 02:23 120 mg ONCE ONE Administration Enoxaparin Sodium 60 mg 10/29/20 22:00 10/29/20 21:29 Enoxaparin Sodium SQ 11/28/20 21:59 60 mg BID NAS Administration Furosemide 40 mg 10/29/20 19:51 10/29/20 21:06 Lasix 40 Mg/4 Ml IV 10/29/20 19:52 40 mg STAT ONE Administration Furosemide Confirm 10/29/20 20:27 Lasix 40 Mg/4 Ml Administered 10/29/20 20:28 Dose 40 mg .ROUTE .STK-MED ONE Diltiazem HCl 100 mls @ 5 mls/hr 10/29/20 16:58 10/29/20 17:03 Cardizem Drip 100 Mg/100 Ml D5w IV 11/28/20 16:57 5 mg/hr .Q20H PRN 5 mls/hr HEART RATE/ A-FIB Administration Protocol 5 MG/HR Diltiazem HCl 100 mls @ 5 mls/hr 10/29/20 20:53 Cardizem Drip 100 Mg/100 Ml D5w IV 11/28/20 20:52 .Q20H PRN HEART RATE/ A-FIB Protocol 5 MG/HR Sodium Chloride Confirm 10/30/20 02:13 Sodium Chloride 0.9% 1000 Ml Administered 10/30/20 02:14 Dose 1,000 mls @ ud .ROUTE .STK-MED ONE Diltiazem HCl Confirm 10/29/20 17:00 Cardizem Drip 100 Mg/100 Ml D5w Administered 10/29/20 17:01 Dose 100 mls @ ud IV .STK-MED ONE Ceftriaxone Sodium/Dextrose 1 g in 50 mls @ 100 mls/hr 10/31/20 10:00 Rocephin 1 Gm-D5w 50 Ml Bag IV 11/03/20 09:59 Q24H10 NAS Morphine Sulfate 4 mg 10/29/20 17:13 10/29/20 17:19 Morphine Sulfate 4 Mg Inj IV 10/29/20 17:14 4 mg STAT ONE Administration Morphine Sulfate Confirm 10/29/20 17:17 Morphine Sulfate 4 Mg Inj Administered 10/29/20 17:18 Dose 4 mg .ROUTE .STK-MED ONE Morphine Sulfate 4 mg 10/29/20 20:13 10/29/20 21:06 Morphine Sulfate 4 Mg Inj IV 10/29/20 20:14 4 mg STAT ONE Administration Morphine Sulfate Confirm 10/29/20 20:27 Morphine Sulfate 4 Mg Inj Administered 10/29/20 20:28 Dose 4 mg .ROUTE .STK-MED ONE Ondansetron HCl 4 mg 10/29/20 17:13 10/29/20 17:19 Zofran 4 Mg/2 Ml Vial IV 10/29/20 17:14 4 mg STAT ONE Administration Ondansetron HCl Confirm 10/29/20 17:16 Zofran 4 Mg/2 Ml Vial Administered 10/29/20 17:17 Dose 4 mg .ROUTE .STK-MED ONE Intake & Output (Last 24 hours) 10/28/20 10/29/20 10/30/20 10/31/20 11:59 11:59 11:59 11:59 Weight 67.3 kg Laboratory Results (Last 24 hours) 10/30/20 10/30/20 10/30/20 09:53 09:33 09:33 WBC RBC Hgb Hct MCV MCH MCHC RDW Plt Count MPV Gran % Eos # (Auto) Absolute Lymphs (auto) Absolute Monos (auto) Lymphocytes % Monocytes % Eosinophils % Basophils % Absolute Granulocytes Segmented Neutrophils Band Neutrophils Lymphocytes (Manual) Monocytes (Manual) Basophils # Platelet Estimate RBC Morphology ESR 69 H PT INR D-Dimer Sodium Potassium Chloride Carbon Dioxide Anion Gap BUN Creatinine Estimated GFR Glucose Calcium Magnesium Total Bilirubin AST ALT Alkaline Phosphatase Troponin I NT-Pro-B Natriuret Pep Serum Total Protein Albumin Thyroxine (T4) 8.76 TSH 3rd Generation 1.620 Urine Color Urine Appearance Urine pH Ur Specific [place] Urine Protein Urine Ketones Urine Blood Urine Nitrite Urine Bilirubin Urine Urobilinogen Ur Leukocyte Esterase Urine WBC (Auto) Urine RBC (Auto) Urine Mucus (Auto) Urine Culture Reflexed Urine Glucose SARS-CoV-2 (PCR) 10/30/20 10/30/20 10/30/20 06:00 06:00 02:45 WBC 20.5 H RBC 4.25 Hgb 12.4 Hct 40.0 MCV 94.1 MCH 29.2 MCHC 31.0 L RDW 14.4 H Plt Count 337 MPV 11.2 H Gran % Eos # (Auto) Absolute Lymphs (auto) Absolute Monos (auto) Lymphocytes % Monocytes % Eosinophils % Basophils % Absolute Granulocytes 16.38 H Segmented Neutrophils 46 Band Neutrophils 34 H Lymphocytes (Manual) 9 L Monocytes (Manual) 11 Basophils # Platelet Estimate NORMAL RBC Morphology NORMAL ESR PT INR D-Dimer Sodium 135 L Potassium 4.4 Chloride 99 Carbon Dioxide 23 Anion Gap 17.2 H BUN 18 H Creatinine 0.84 Estimated GFR > 60.0 Glucose 134 H Calcium 9.2 Magnesium Total Bilirubin 1.10 AST 19 ALT 16 Alkaline Phosphatase 63 Troponin I < 0.012 < 0.012 NT-Pro-B Natriuret Pep 1050 H Serum Total Protein 6.7 Albumin 3.9 Thyroxine (T4) TSH 3rd Generation Urine Color Urine Appearance Urine pH Ur Specific [place] Urine Protein Urine Ketones Urine Blood Urine Nitrite Urine Bilirubin Urine Urobilinogen Ur Leukocyte Esterase Urine WBC (Auto) Urine RBC (Auto) Urine Mucus (Auto) Urine Culture Reflexed Urine Glucose SARS-CoV-2 (PCR) 10/29/20 10/29/20 10/29/20 22:45 22:41 20:10 WBC RBC Hgb Hct MCV MCH MCHC RDW Plt Count MPV Gran % Eos # (Auto) Absolute Lymphs (auto) Absolute Monos (auto) Lymphocytes % Monocytes % Eosinophils % Basophils % Absolute Granulocytes Segmented Neutrophils Band Neutrophils Lymphocytes (Manual) Monocytes (Manual) Basophils # Platelet Estimate RBC Morphology ESR PT INR D-Dimer Sodium Potassium Chloride Carbon Dioxide Anion Gap BUN Creatinine Estimated GFR Glucose Calcium Magnesium Total Bilirubin AST ALT Alkaline Phosphatase Troponin I < 0.012 < 0.012 NT-Pro-B Natriuret Pep Serum Total Protein Albumin Thyroxine (T4) TSH 3rd Generation Urine Color Urine Appearance Urine pH Ur Specific [place] Urine Protein Urine Ketones Urine Blood Urine Nitrite Urine Bilirubin Urine Urobilinogen Ur Leukocyte Esterase Urine WBC (Auto) Urine RBC (Auto) Urine Mucus (Auto) Urine Culture Reflexed Urine Glucose SARS-CoV-2 (PCR) NEGATIVE 10/29/20 10/29/20 10/29/20 18:27 16:59 16:59 WBC RBC Hgb Hct MCV MCH MCHC RDW Plt Count MPV Gran % Eos # (Auto) Absolute Lymphs (auto) Absolute Monos (auto) Lymphocytes % Monocytes % Eosinophils % Basophils % Absolute Granulocytes Segmented Neutrophils Band Neutrophils Lymphocytes (Manual) Monocytes (Manual) Basophils # Platelet Estimate RBC Morphology ESR PT 12.0 INR 1.02 D-Dimer 1437 H* Sodium Potassium Chloride Carbon Dioxide Anion Gap BUN Creatinine Estimated GFR Glucose Calcium Magnesium Total Bilirubin AST ALT Alkaline Phosphatase Troponin I < 0.012 NT-Pro-B Natriuret Pep Serum Total Protein Albumin Thyroxine (T4) TSH 3rd Generation Urine Color YELLOW Urine Appearance CLEAR Urine pH 8.0 Ur Specific [place] 1.021 Urine Protein NEGATIVE Urine Ketones SMALL Urine Blood NEGATIVE Urine Nitrite NEGATIVE Urine Bilirubin NEGATIVE Urine Urobilinogen NEGATIVE Ur Leukocyte Esterase NEGATIVE Urine WBC (Auto) NONE Urine RBC (Auto) NONE Urine Mucus (Auto) SLIGHT Urine Culture Reflexed NO Urine Glucose NEGATIVE SARS-CoV-2 (PCR) 10/29/20 10/29/20 10/29/20 16:59 16:40 16:30 WBC RBC Hgb Hct MCV MCH MCHC RDW Plt Count MPV Gran % Eos # (Auto) Absolute Lymphs (auto) Absolute Monos (auto) Lymphocytes % Monocytes % Eosinophils % Basophils % Absolute Granulocytes Segmented Neutrophils Band Neutrophils Lymphocytes (Manual) Monocytes (Manual) Basophils # Platelet Estimate RBC Morphology ESR PT INR D-Dimer Sodium 137 Potassium 4.0 Chloride 101 Carbon Dioxide 23 Anion Gap 16.9 H BUN 14 Creatinine 0.60 Estimated GFR > 60.0 Glucose 94 Calcium 9.8 Magnesium 2.1 Total Bilirubin 0.80 AST 31 ALT 16 Alkaline Phosphatase 97 Troponin I NT-Pro-B Natriuret Pep 709 Serum Total Protein 7.3 Albumin 4.2 Thyroxine (T4) 11.9 H TSH 3rd Generation 2.710 Urine Color Urine Appearance Urine pH Ur Specific [place] Urine Protein Urine Ketones Urine Blood Urine Nitrite Urine Bilirubin Urine Urobilinogen Ur Leukocyte Esterase Urine WBC (Auto) Urine RBC (Auto) Urine Mucus (Auto) Urine Culture Reflexed Urine Glucose SARS-CoV-2 (PCR) 10/29/20 16:30 WBC 14.5 H RBC 4.75 Hgb 13.9 Hct 44.2 MCV 93.1 MCH 29.3 MCHC 31.4 L RDW 13.9 Plt Count 356 MPV 10.3 Gran % 81.0 H Eos # (Auto) 0.14 Absolute Lymphs (auto) 1.44 Absolute Monos (auto) 1.16 Lymphocytes % 9.9 L Monocytes % 8.0 Eosinophils % 1.0 Basophils % 0.1 Absolute Granulocytes 11.76 H Segmented Neutrophils Band Neutrophils Lymphocytes (Manual) Monocytes (Manual) Basophils # 0.02 Platelet Estimate RBC Morphology ESR PT INR D-Dimer Sodium Potassium Chloride Carbon Dioxide Anion Gap BUN Creatinine Estimated GFR Glucose Calcium Magnesium Total Bilirubin AST ALT Alkaline Phosphatase Troponin I NT-Pro-B Natriuret Pep Serum Total Protein Albumin Thyroxine (T4) TSH 3rd Generation Urine Color Urine Appearance Urine pH Ur Specific [place] Urine Protein Urine Ketones Urine Blood Urine Nitrite Urine Bilirubin Urine Urobilinogen Ur Leukocyte Esterase Urine WBC (Auto) Urine RBC (Auto) Urine Mucus (Auto) Urine Culture Reflexed Urine Glucose SARS-CoV-2 (PCR) Orders (Last 24 hours) Category Date Time Status Bedrest TOLERATED Activity 10/30/20 00:30 Active Walk With Assistance TOLERATED Activity 10/30/20 12:08 Active Admit as Inpatient ROUTINE Care 10/30/20 00:30 Active Code Status Order ROUTINE Care 10/30/20 00:30 Active EKG-ER Only STAT Care 10/29/20 16:30 Completed IV Insertion STAT Care 10/29/20 16:30 Completed Pulse Oximetry (ED) STAT Care 10/29/20 16:30 Completed Telemetry PROTOCOL Care 10/30/20 00:30 Active Weight,Daily 0600 Care 10/30/20 00:30 Active Aquatic Physiotherapist/Discharge Plan ROUTINE Cons 10/30/20 03:15 Active Heart-Healthy Diet Diet 10/30/20 Breakfast Active CHEST 1 VIEW (PORTABLE) Stat Exams 10/29/20 16:31 Completed CHEST WITH CONTRAST [CT] Stat Exams 10/29/20 18:13 Completed ECHO W/2D AND DOPPLER [US] Routine Exams 10/30/20 11:10 Taken CBC W DIFF AM.LAB Lab 10/30/20 06:00 Completed CBC W DIFF Stat Lab 10/29/20 16:30 Completed CMP Routine Lab 10/30/20 06:00 Completed CMP Stat Lab 10/29/20 16:59 Completed D-DIMER QUANTITATIVE Stat Lab 10/29/20 16:59 Completed Erythrocyte Sedimentation Rate Routine Lab 10/30/20 09:33 Completed MAGNESIUM Stat Lab 10/29/20 16:40 Completed Manual Differential NC Routine Lab 10/30/20 06:00 Completed NT PRO BNP Routine Lab 10/30/20 06:00 Completed NT PRO BNP Stat Lab 10/29/20 16:59 Completed PROTIME WITH INR Stat Lab 10/29/20 16:59 Completed T3 Uptake Urgent Lab 10/30/20 09:53 Received T4 (Thyroxine) Stat Lab 10/29/20 16:30 Completed T4 (Thyroxine) Urgent Lab 10/30/20 09:53 Completed TROPONIN Q3H Lab 10/29/20 16:59 Completed TROPONIN Q3H Lab 10/29/20 20:10 Completed TROPONIN Q3H Lab 10/29/20 22:45 Completed TROPONIN Q3H Lab 10/30/20 02:45 Completed TROPONIN Q3H Lab 10/30/20 06:00 Completed TSH [TSH, 3RD Generation] Stat Lab 10/29/20 16:40 Completed TSH, 3RD Generation Routine Lab 10/30/20 09:33 Completed Thyroglobulin Antibody Urgent Lab 10/30/20 09:53 Received UA W/RFX UR CULTURE Stat Lab 10/29/20 18:27 Completed Acetaminophen 325 mg [Tylenol 325 mg] Med 10/30/20 00:30 Active 650 mg PO Q4H PRN PRN Apixaban [Eliquis 2.5 mg Tablet] Med 10/30/20 10:00 Active 5 mg PO BID Aspirin 81 gm Chew [Baby Aspirin 81 mg Chew] Med 10/29/20 16:30 Discontinued 324 mg PO STAT ONE Ceftriaxone 1 GM/50 ML PREMIX* [ROCEPHIN 1 Gm-D5w 50 ml Med 10/30/20 13:00 Active Bag] 1 g in 50 ml IV DAILY Ceftriaxone 1 GM/50 ML PREMIX* [ROCEPHIN 1 Gm-D5w 50 ml Med 10/31/20 10:00 Discontinued Bag] 1 g in 50 ml IV Q24H10 Diltiazem HCl 100 mg/100 ml [Cardizem Drip 100 mg/100 Med 10/29/20 16:58 Discontinued ml D5w] 100 ml IV 5 mg/hr Diltiazem HCl 100 mg/100 ml [Cardizem Drip 100 mg/100 Med 10/29/20 20:53 Discontinued ml D5w] 100 ml IV 5 mg/hr Diltiazem HCl 100 mg/100 ml [Cardizem Drip 100 mg/100 Med 10/29/20 17:00 Discontinued ml D5w] 100 ml IV UD Diltiazem HCl 120 mg [Cardizem CD 120 MG] Med 10/30/20 13:00 Active 120 mg PO DAILY Diltiazem HCl 120 mg [Cardizem CD 120 MG] Med 10/30/20 02:22 Discontinued 120 mg PO ONCE ONE Diltiazem HCl 50 mg/10 ml [Cardizem IV 50 MG/10 ML Med 10/29/20 16:42 Discontinued *] 15 mg IV STAT ONE Diltiazem HCl 50 mg/10 ml [Cardizem IV 50 MG/10 ML Med 10/29/20 16:44 Discontinued *] 50 mg IV .STK-MED ONE Enoxaparin Sodium [Enoxaparin Sodium] Med 10/29/20 22:00 Discontinued 60 mg SQ BID Furosemide 20 mg/2 ml [Lasix 20 MG/2 ML] Med 10/30/20 13:00 Active 20 mg IV DAILY Furosemide 40 mg/4 ml [Lasix 40 MG/4 ML] Med 10/29/20 20:27 Discontinued 40 mg .ROUTE .STK-MED ONE Furosemide 40 mg/4 ml [Lasix 40 MG/4 ML] Med 10/29/20 19:51 Discontinued 40 mg IV STAT ONE Levothyroxine Sodium 25 Mcg [Synthroid 25 Mcg] Med 10/30/20 10:00 Active 37.5 mcg PO DAILY Lorazepam 1 mg [Ativan 1 MG] Med 10/30/20 09:42 Active 1 mg PO BID PRN PRN Magnesium Hydroxide 30 ml [Milk of Magnesia 30 ml Med 10/30/20 22:00 Active ] See Dose Instructions PO QHS Medication Intervention Med 10/30/20 10:00 Active 1 each MC .RN TO CHECK Morphine Sulfate 4 mg Inj Med 10/29/20 17:17 Discontinued 4 mg .ROUTE .STK-MED ONE Morphine Sulfate 4 mg Inj Med 10/29/20 20:27 Discontinued 4 mg .ROUTE .STK-MED ONE Morphine Sulfate 4 mg Inj Med 10/30/20 00:30 Active 4 mg IV Q4H PRN PRN Morphine Sulfate 4 mg Inj Med 10/29/20 17:13 Discontinued 4 mg IV STAT ONE Morphine Sulfate 4 mg Inj Med 10/29/20 20:13 Discontinued 4 mg IV STAT ONE NaCl 0.9% 1000 ml [Sodium Chloride 0.9% 1000 ML] 1,000 Med 10/30/20 02:13 Discontinued ml .ROUTE UD Naproxen 500 mg [Naprosyn 500 MG] Med 10/30/20 09:42 Active 500 mg PO BIDPRN PRN Ondansetron HCl 4 mg/2 ml [Zofran 4 MG/2 ML VIAL] Med 10/29/20 17:16 Discontinued 4 mg .ROUTE .STK-MED ONE Ondansetron HCl 4 mg/2 ml [Zofran 4 MG/2 ML VIAL] Med 10/30/20 00:30 Active 4 mg IV Q6H PRN PRN Ondansetron HCl 4 mg/2 ml [Zofran 4 MG/2 ML VIAL] Med 10/29/20 17:13 Discontinued 4 mg IV STAT ONE Polyethylene Glycol 3350 17 gm [Miralax Powder 17GM Med 10/30/20 10:00 Active PACKET] 17 gm PO QAM Potassium Chloride 10 Meq Tab* [Klor Con 10 MEQ] Med 10/30/20 13:00 Active 10 meq PO BID EKG REPEAT IN AM RT 10/30/20 00:30 Completed Oxygen NASAL CANNULA 2 lpm RT 10/30/20 02:18 Active Pulse Oximetry ROUTINE RT 10/30/20 00:30 Active RT Screen per Nursing Assess ONCE RT 10/30/20 03:15 Completed Patient Care Notes (Last 24 hours) 10/30/20 04:56 Late Entry Note by Jeri Perkins This nurse contacted Dr. Butler and notified him of patient being hypotensive, converted to SR HR 90's, c/o 7/10 chest pain. Order received to discontinue ca rdizem drip and administer po cardizem. Initialized on 10/30/20 04:56 - END OF NOTE Code(s): I48.91 - UNSPECIFIED ATRIAL FIBRILLATION (2) CHF (congestive heart failure) Current Visit: Yes Status: Acute Qualifiers: Heart failure type: systolic Heart failure chronicity: acute Qualified Code(s): I50.21 - Acute systolic (congestive) heart failure Code(s): I50.9 - HEART FAILURE, UNSPECIFIED (3) Leukocytosis Current Visit: Yes Status: Acute Qualifiers: Leukocytosis type: bandemia Qualified Code(s): D72.825 - Bandemia Code(s): D72.829 - ELEVATED WHITE BLOOD CELL COUNT, UNSPECIFIED
[2020-10-30] MEDS: Klor Con 10 MEQ PO SCH ×2 (13:44→21:18)
[2020-10-30] MEDS: Cardizem CD 120 MG PO SCH (13:44)
[2020-10-30] MEDS: ROCEPHIN 1 Gm-D5w 50 ml Bag** 1 G/50 ML IVPB IV SCH (13:46)
[2020-10-30] MEDS: Lasix 20 MG/2 ML IV SCH (13:47)
[2020-10-30] MEDS ORDERED: MILK OF MAGNESIA 30 ML PO SCH (22:00)
[2020-10-30] MEDS: TYLENOL 325 MG PO PRN (22:31)
[2020-10-31] MEDS: TYLENOL 325 MG PO PRN (02:05)
--- NOTE | 2020-10-31 07:51 | PCM.DS ---
Discharge Summary Date of Admission: 10/30/20 00:22 Admitting Physician: KINSEY HART Primary Care Provider: KINSEY HART Allergies Allergies amoxicillin trihydrate [From Augmentin] Allergy (Verified 10/30/20 02:14) Penicillins Allergy (Verified 10/30/20 02:14) potassium clavulanate [From Augmentin] Allergy (Verified 10/30/20 02:14) Sulfa (Sulfonamide Antibiotics) Allergy (Verified 10/30/20 02:14) Hospital Summary - Hospital Course Hospital Course: Chief Complaint Diagnosis shortness of breath for 1 day Allergies Allergy/AdvReac Type Severity Reaction Status Date / Time amoxicillin trihydrate Allergy Verified 10/30/20 02:14 [From Augmentin] Penicillins Allergy Verified 10/30/20 02:14 potassium clavulanate Allergy Verified 10/30/20 02:14 [From Augmentin] Sulfa (Sulfonamide Allergy Verified 10/30/20 02:14 Antibiotics) Vital Signs (Last 24 hours) Temp Pulse Resp BP Pulse Ox 10/31/20 02:30 97.8 F 88 24 105/52 96 10/30/20 23:44 98.7 F 87 22 93/56 94 L 10/30/20 20:00 98.6 F 84 24 100/61 94 L 10/30/20 19:47 94 L 10/30/20 16:00 98.0 F 92 H 24 106/63 94 L 10/30/20 12:00 97.6 F 90 18 119/71 95 10/30/20 08:27 96 10/30/20 08:00 98.0 F 97 H 22 123/85 95 Current Medications Generic Name Dose Route Start Last Admin Trade Name Freq PRN Reason Stop Dose Admin Acetaminophen 650 mg 10/30/20 00:30 10/31/20 02:05 Tylenol 325 Mg PO 11/29/20 00:29 650 mg Q4H PRN PRN Administration PAIN, FEVER, HEADACHE Apixaban 5 mg 10/30/20 10:00 10/30/20 21:18 Eliquis 2.5 Mg Tablet PO 11/29/20 09:59 5 mg BID NAS Administration Diltiazem HCl 120 mg 10/30/20 13:00 10/30/20 13:44 Cardizem Cd 120 Mg PO 11/29/20 12:59 120 mg DAILY NAS Administration Furosemide 20 mg 10/30/20 13:00 10/30/20 13:47 Lasix 20 Mg/2 Ml IV 11/29/20 12:59 20 mg DAILY NAS Administration Ceftriaxone Sodium/Dextrose 1 g in 50 mls @ 100 mls/hr 10/30/20 13:00 10/30/20 13:46 Rocephin 1 Gm-D5w 50 Ml Bag IV 11/02/20 12:59 100 mls/hr DAILY NAS Administration Levothyroxine Sodium 37.5 mcg 10/30/20 10:00 10/30/20 11:19 Synthroid 25 Mcg PO 11/29/20 09:59 37.5 mcg DAILY NAS Administration Lorazepam 1 mg 10/30/20 09:42 Ativan 1 Mg PO 11/29/20 09:41 BID PRN PRN ANXIETY Magnesium Hydroxide 0 ml 10/30/20 22:00 10/30/20 21:17 Milk Of Magnesia 30 Ml PO 11/29/20 21:59 30 ml QHS NAS Administration Miscellaneous Information 1 each 10/30/20 10:00 Medication Intervention MC 11/29/20 09:59 .RN TO CHECK NAS Morphine Sulfate 4 mg 10/30/20 00:30 10/30/20 18:39 Morphine Sulfate 4 Mg Inj IV 11/04/20 00:29 4 mg Q4H PRN PRN Administration PAIN Naproxen 500 mg 10/30/20 09:42 Naprosyn 500 Mg PO 11/29/20 09:41 BIDPRN PRN PAIN Ondansetron HCl 4 mg 10/30/20 00:30 Zofran 4 Mg/2 Ml Vial IV 11/29/20 00:29 Q6H PRN PRN NAUSEA/VOMITING Polyethylene Glycol 17 gm 10/30/20 10:00 10/30/20 11:20 Miralax Powder 17gm Packet PO 11/29/20 09:59 17 gm QAM NAS Administration Potassium Chloride 10 meq 10/30/20 13:00 10/30/20 21:18 Klor Con 10 Meq PO 11/29/20 12:59 10 meq BID NAS Administration Discontinued Medications Generic Name Dose Route Start Last Admin Trade Name Freq PRN Reason Stop Dose Admin Aspirin 324 mg 10/29/20 16:30 10/29/20 16:36 Baby Aspirin 81 Mg Chew PO 10/29/20 16:31 324 mg STAT ONE Administration Diltiazem HCl 15 mg 10/29/20 16:42 10/29/20 16:45 Cardizem Iv 50 Mg/10 Ml IV 10/29/20 16:43 15 mg STAT ONE Administration Diltiazem HCl Confirm 10/29/20 16:44 Cardizem Iv 50 Mg/10 Ml Administered 10/29/20 16:45 Dose 50 mg IV .STK-MED ONE Diltiazem HCl 120 mg 10/30/20 02:22 10/30/20 02:28 Cardizem Cd 120 Mg PO 10/30/20 02:23 120 mg ONCE ONE Administration Enoxaparin Sodium 60 mg 10/29/20 22:00 10/29/20 21:29 Enoxaparin Sodium SQ 11/28/20 21:59 60 mg BID NAS Administration Furosemide 40 mg 10/29/20 19:51 10/29/20 21:06 Lasix 40 Mg/4 Ml IV 10/29/20 19:52 40 mg STAT ONE Administration Furosemide Confirm 10/29/20 20:27 Lasix 40 Mg/4 Ml Administered 10/29/20 20:28 Dose 40 mg .ROUTE .STK-MED ONE Diltiazem HCl 100 mls @ 5 mls/hr 10/29/20 16:58 10/29/20 17:03 Cardizem Drip 100 Mg/100 Ml D5w IV 11/28/20 16:57 5 mg/hr .Q20H PRN 5 mls/hr HEART RATE/ A-FIB Administration Protocol 5 MG/HR Diltiazem HCl 100 mls @ 5 mls/hr 10/29/20 20:53 Cardizem Drip 100 Mg/100 Ml D5w IV 11/28/20 20:52 .Q20H PRN HEART RATE/ A-FIB Protocol 5 MG/HR Sodium Chloride Confirm 10/30/20 02:13 Sodium Chloride 0.9% 1000 Ml Administered 10/30/20 02:14 Dose 1,000 mls @ ud .ROUTE .STK-MED ONE Diltiazem HCl Confirm 10/29/20 17:00 Cardizem Drip 100 Mg/100 Ml D5w Administered 10/29/20 17:01 Dose 100 mls @ ud IV .STK-MED ONE Ceftriaxone Sodium/Dextrose 1 g in 50 mls @ 100 mls/hr 10/31/20 10:00 Rocephin 1 Gm-D5w 50 Ml Bag IV 11/03/20 09:59 Q24H10 NAS Morphine Sulfate 4 mg 10/29/20 17:13 10/29/20 17:19 Morphine Sulfate 4 Mg Inj IV 10/29/20 17:14 4 mg STAT ONE Administration Morphine Sulfate Confirm 10/29/20 17:17 Morphine Sulfate 4 Mg Inj Administered 10/29/20 17:18 Dose 4 mg .ROUTE .STK-MED ONE Morphine Sulfate 4 mg 10/29/20 20:13 10/29/20 21:06 Morphine Sulfate 4 Mg Inj IV 10/29/20 20:14 4 mg STAT ONE Administration Morphine Sulfate Confirm 10/29/20 20:27 Morphine Sulfate 4 Mg Inj Administered 10/29/20 20:28 Dose 4 mg .ROUTE .STK-MED ONE Ondansetron HCl 4 mg 10/29/20 17:13 10/29/20 17:19 Zofran 4 Mg/2 Ml Vial IV 10/29/20 17:14 4 mg STAT ONE Administration Ondansetron HCl Confirm 10/29/20 17:16 Zofran 4 Mg/2 Ml Vial Administered 10/29/20 17:17 Dose 4 mg .ROUTE .STK-MED ONE Intake & Output (Last 24 hours) 10/28/20 10/29/20 10/30/20 10/31/20 11:59 11:59 11:59 11:59 Intake Total 800 Output Total 400 Balance 400 Weight 68.9 kg 67.3 kg Laboratory Results (Last 24 hours) 10/30/20 10/30/20 10/30/20 09:53 09:33 09:33 ESR 69 H Sodium Potassium Chloride Carbon Dioxide Anion Gap BUN Creatinine Estimated GFR Glucose Calcium Total Bilirubin AST ALT Alkaline Phosphatase Troponin I NT-Pro-B Natriuret Pep Serum Total Protein Albumin Thyroxine (T4) 8.76 TSH 3rd Generation 1.620 10/30/20 06:00 ESR Sodium 135 L Potassium 4.4 Chloride 99 Carbon Dioxide 23 Anion Gap 17.2 H BUN 18 H Creatinine 0.84 Estimated GFR > 60.0 Glucose 134 H Calcium 9.2 Total Bilirubin 1.10 AST 19 ALT 16 Alkaline Phosphatase 63 Troponin I < 0.012 NT-Pro-B Natriuret Pep 1050 H Serum Total Protein 6.7 Albumin 3.9 Thyroxine (T4) TSH 3rd Generation Orders (Last 24 hours) Category Date Time Status Walk With Assistance TOLERATED Activity 10/30/20 12:08 Active Heart-Healthy Diet Diet 10/30/20 Breakfast Active ECHO W/2D AND DOPPLER [US] Routine Exams 10/30/20 11:10 Taken Erythrocyte Sedimentation Rate Routine Lab 10/30/20 09:33 Completed T3 Uptake Urgent Lab 10/30/20 09:53 Received T4 (Thyroxine) Urgent Lab 10/30/20 09:53 Completed TSH, 3RD Generation Routine Lab 10/30/20 09:33 Completed Thyroglobulin Antibody Urgent Lab 10/30/20 09:53 Received Apixaban [Eliquis 2.5 mg Tablet] Med 10/30/20 10:00 Active 5 mg PO BID Ceftriaxone 1 GM/50 ML PREMIX* [ROCEPHIN 1 Gm-D5w 50 ml Med 10/30/20 13:00 Active Bag] 1 g in 50 ml IV DAILY Ceftriaxone 1 GM/50 ML PREMIX* [ROCEPHIN 1 Gm-D5w 50 ml Med 10/31/20 10:00 Discontinued Bag] 1 g in 50 ml IV Q24H10 Diltiazem HCl 120 mg [Cardizem CD 120 MG] Med 10/30/20 13:00 Active 120 mg PO DAILY Furosemide 20 mg/2 ml [Lasix 20 MG/2 ML] Med 10/30/20 13:00 Active 20 mg IV DAILY Levothyroxine Sodium 25 Mcg [Synthroid 25 Mcg] Med 10/30/20 10:00 Active 37.5 mcg PO DAILY Lorazepam 1 mg [Ativan 1 MG] Med 10/30/20 09:42 Active 1 mg PO BID PRN PRN Magnesium Hydroxide 30 ml [Milk of Magnesia 30 ml Med 10/30/20 22:00 Active ] See Dose Instructions PO QHS Medication Intervention Med 10/30/20 10:00 Active 1 each MC .RN TO CHECK Naproxen 500 mg [Naprosyn 500 MG] Med 10/30/20 09:42 Active 500 mg PO BIDPRN PRN Polyethylene Glycol 3350 17 gm [Miralax Powder 17GM Med 10/30/20 10:00 Active PACKET] 17 gm PO QAM Potassium Chloride 10 Meq Tab* [Klor Con 10 MEQ] Med 10/30/20 13:00 Active 10 meq PO BID Patient Care Notes (Last 24 hours) 10/30/20 18:49 Late Entry Note by Arianna Galdamez ROUNDED WITH DR HART, GAVE ORDERS FOR CARDIZEM DAILY, POTASSIUM BID, WALK PATIENT DAILY, IV LASIX DAILY, TRANSFER TO [facility] WITH TELE, ADDED ELIQUIS WELL Initialized on 10/30/20 18:49 - END OF NOTE 10/30/20 15:37 Nursing Note by Ivonne Lyman PATIENT WAS [facility] [facility] AND MOVED TO ROOM 115 ON 10/30/20@ 1500. Initialized on 10/30/20 15:37 - END OF NOTE - Vitals & Intake/Output Vital Signs: Vital Signs Temperature 97.8 F 10/31/20 02:30 Pulse Rate 88 10/31/20 02:30 Respiratory Rate 24 10/31/20 02:30 Blood Pressure 105/52 10/31/20 02:30 O2 Sat by Pulse Oximetry 96 10/31/20 02:30 Intake & Output: Intake & Output 10/28/20 10/29/20 10/30/20 10/31/20 11:59 11:59 11:59 11:59 Intake Total 800 Output Total 400 Balance 400 Weight 68.9 kg 67.3 kg - Lab Result Diagrams: 10/30/20 06:00 10/30/20 06:00 Lab Results-Last 24 Hrs: Lab Results-Last 24 Hours 10/30/20 10/30/20 10/30/20 Range/Units 06:00 09:33 09:33 ESR 69 H (0-20) mm/hr Sodium 135 L (137-145) mmol/L Potassium 4.4 (3.5-5.1) mmol/L Chloride 99 (98-107) mmol/L Carbon Dioxide 23 (22-30) mmol/L Anion Gap 17.2 H (5-15) MEQ/L BUN 18 H (7-17) mg/dL Creatinine 0.84 (0.52-1.04) mg/dL Estimated GFR > 60.0 ML/MIN Glucose 134 H (74-106) mg/dL Calcium 9.2 (8.4-10.2) mg/dL Total Bilirubin 1.10 (0.2-1.3) mg/dL AST 19 (14-36) U/L ALT 16 (0-35) U/L Alkaline Phosphatase 63 (38-126) U/L Troponin I < 0.012 (0.000-0.034) ng/mL NT-Pro-B Natriuret Pep 1050 H (0-900) pg/mL Serum Total Protein 6.7 (6.3-8.2) g/dL Albumin 3.9 (3.5-5.0) g/dL Thyroxine (T4) (5.53-10.96) ug/dL TSH 3rd Generation 1.620 (0.47-4.68) mIU/L 10/30/20 Range/Units 09:53 ESR (0-20) mm/hr Sodium (137-145) mmol/L Potassium (3.5-5.1) mmol/L Chloride (98-107) mmol/L Carbon Dioxide (22-30) mmol/L Anion Gap (5-15) MEQ/L BUN (7-17) mg/dL Creatinine (0.52-1.04) mg/dL Estimated GFR ML/MIN Glucose (74-106) mg/dL Calcium (8.4-10.2) mg/dL Total Bilirubin (0.2-1.3) mg/dL AST (14-36) U/L ALT (0-35) U/L Alkaline Phosphatase (38-126) U/L Troponin I (0.000-0.034) ng/mL NT-Pro-B Natriuret Pep (0-900) pg/mL Serum Total Protein (6.3-8.2) g/dL Albumin (3.5-5.0) g/dL Thyroxine (T4) 8.76 (5.53-10.96) ug/dL TSH 3rd Generation (0.47-4.68) mIU/L - Radiology Exams Ordered Rad Exams-Entire Visit: Radiology Procedures Category Date Time Status CHEST 1 VIEW (PORTABLE) Stat Exams 10/29/20 16:31 Completed CHEST WITH CONTRAST [CT] Stat Exams 10/29/20 18:13 Completed ECHO W/2D AND DOPPLER [US] Routine Exams 10/30/20 11:[address]/CHEST WITH CONTRAST Indication: Chest pain. Elevated d-dimer. Multiple contiguous axial images obtained through the chest using 80 cc Isovue 370 contrast and PE protocol. Comparison: June 19, 2014. There is good opacification of the pulmonary arteries to include the lobar and segmental branches. No pulmonary embolus. Heart is now enlarged with new moderate pericardial effusion. Aorta is normal in course and caliber without aneurysm/dissection. No pathologic mediastinal/hilar lymphadenopathy. New small hiatal hernia. Lungs demonstrates worsening moderate bibasilar subsegmental atelectasis/scarring. No suspicious pulmonary mass/nodule, infiltrate, or effusion. Bony thorax intact again with mild osteopenia and minimal degenerative changes throughout the spine. Limited upper abdomen unremarkable. Impression: 1. Continue negative pulmonary embolus. 2. New cardiomegaly with pericardial effusion. Echocardiogram may yield further information. 3. Worsening bibasilar subsegmental atelectasis/scarring. No acute cardiopulmonary abnormalities. 4. New small hiatal hernia. - Procedures and Test Procedures and Tests throughout Hospitalization: Therapy Orders & Screens 10/30/20 00:30 EKG REPEAT IN AM Comment: 10/30/20 02:18 Oxygen NASAL CANNULA 2 lpm Comment: 10/30/20 03:15 RT Screen per Nursing Assess ONCE Comment: Protocol Order Physician Instructions: Greater than 3 points order RT Admission Screen Reason For Exam: Triggered on Admission Diagnosis: CHF, leukocytosis Diagnosis: CHF, leukocytosis Pneumonia: No Home O2: No Asthma: Yes CHF: Yes Home CPAP/BIPAP: No Home Nebs/MDI: Yes Total Points: 12 Discharge Exam General Appearance: no apparent distress, alert Neurologic Exam: alert, oriented x 3, cooperative, normal mood/affect, nml cerebellar function, sensation nml, No motor deficits Eye Exam: PERRL, EOMI, eyes nml inspection Ears, Nose, Throat Exam: normal ENT inspection, pharynx normal, moist mucous membranes Neck Exam: normal inspection, non-tender, supple, full range of motion Respiratory Exam: normal breath sounds, lungs clear, No respiratory distress Cardiovascular Exam: regular rate/rhythm, normal heart sounds Gastrointestinal/Abdomen Exam: soft, No tenderness, No mass Pelvic Exam: deferred Rectal Exam: deferred Back Exam: normal inspection, normal range of motion, No CVA tenderness, No vertebral tenderness Extremity Exam: normal inspection, normal range of motion Skin Exam: normal color, warm, dry Final Diagnosis/Problem List - Final Discharge Diagnosis/Problem (1) Atrial fibrillation with RVR Current Visit: Yes Status: Acute Assessment & Plan: Last Vital Signs Temp 97.8 F 10/31/20 02:30 Pulse 88 10/31/20 02:30 Resp 24 10/31/20 02:30 BP 105/52 10/31/20 02:30 Pulse Ox 96 10/31/20 02:30 Allergies amoxicillin trihydrate [From Augmentin] Allergy (Verified 10/30/20 02:14) Penicillins Allergy (Verified 10/30/20 02:14) potassium clavulanate [From Augmentin] Allergy (Verified 10/30/20 02:14) Sulfa (Sulfonamide Antibiotics) Allergy (Verified 10/30/20 02:14) Active Medications Acetaminophen (Tylenol 325 Mg) 650 mg PO Q4H PRN PRN PRN Reason: PAIN, FEVER, HEADACHE Stop: 11/29/20 00:29 Last Admin: 10/31/20 02:05 Dose: 650 mg Documented by: Apixaban (Eliquis 2.5 Mg Tablet) 5 mg PO BID NAS Stop: 11/29/20 09:59 Last Admin: 10/30/20 21:18 Dose: 5 mg Documented by: Diltiazem HCl (Cardizem Cd 120 Mg) 120 mg PO DAILY NAS Stop: 11/29/20 12:59 Last Admin: 10/30/20 13:44 Dose: 120 mg Documented by: Furosemide (Lasix 20 Mg/2 Ml) 20 mg IV DAILY NAS Stop: 11/29/20 12:59 Last Admin: 10/30/20 13:47 Dose: 20 mg Documented by: Ceftriaxone Sodium/Dextrose (Rocephin 1 Gm-D5w 50 Ml Bag) 1 g in 50 mls @ 100 mls/hr IV DAILY NAS Stop: 11/02/20 12:59 Last Admin: 10/30/20 13:46 Dose: 100 mls/hr Documented by: Levothyroxine Sodium (Synthroid 25 Mcg) 37.5 mcg PO DAILY NAS Stop: 11/29/20 09:59 Last Admin: 10/30/20 11:19 Dose: 37.5 mcg Documented by: Lorazepam (Ativan 1 Mg) 1 mg PO BID PRN PRN PRN Reason: ANXIETY Stop: 11/29/20 09:41 Magnesium Hydroxide (Milk Of Magnesia 30 Ml) 0 ml PO QHS NAS Stop: 11/29/20 21:59 Last Admin: 10/30/20 21:17 Dose: 30 ml Documented by: Miscellaneous Information (Medication Intervention) 1 each MC .RN TO CHECK [facility] Stop: 11/29/20 09:59 Morphine Sulfate (Morphine Sulfate 4 Mg Inj) 4 mg IV Q4H PRN PRN PRN Reason: PAIN Stop: 11/04/20 00:29 Last Admin: 10/30/20 18:39 Dose: 4 mg Documented by: Naproxen (Naprosyn 500 Mg) 500 mg PO BIDPRN PRN PRN Reason: PAIN Stop: 11/29/20 09:41 Ondansetron HCl (Zofran 4 Mg/2 Ml Vial) 4 mg IV Q6H PRN PRN PRN Reason: NAUSEA/VOMITING Stop: 11/29/20 00:29 Polyethylene Glycol (Miralax Powder 17gm Packet) 17 gm PO QAM NAS Stop: 11/29/20 09:59 Last Admin: 10/30/20 11:20 Dose: 17 gm Documented by: Potassium Chloride (Klor Con 10 Meq) 10 meq PO BID NAS Stop: 11/29/20 12:59 Last Admin: 10/30/20 21:18 Dose: 10 meq Documented by: Intake & Output 10/30/20 10/31/20 11:59 11:59 Intake Total 800 Output Total 400 Balance 400 Weight 68.9 kg 67.3 kg Orders 10/30/20 09:42 Lorazepam 1 mg [Ativan 1 MG] 1 mg PO BID PRN PRN Naproxen 500 mg [Naprosyn 500 MG] 500 mg PO BIDPRN PRN 10/30/20 09:53 T3 Uptake Urgent Thyroglobulin Antibody Urgent 10/30/20 10:00 Apixaban [Eliquis 2.5 mg Tablet] 5 mg PO BID Levothyroxine Sodium 25 Mcg [Synthroid 25 Mcg] 37.5 mcg PO DAILY Medication Intervention 1 each MC .RN TO CHECK Polyethylene Glycol 3350 17 gm [Miralax Powder 17GM PACKET] 17 gm PO QAM 10/30/20 11:10 ECHO W/2D AND DOPPLER [US] Routine 10/30/20 12:08 Walk With Assistance TOLERATED 10/30/20 13:00 Ceftriaxone 1 GM/50 ML PREMIX* [ROCEPHIN 1 Gm-D5w 50 ml Bag] 1 g in 50 ml IV DAILY Diltiazem HCl 120 mg [Cardizem CD 120 MG] 120 mg PO DAILY Furosemide 20 mg/2 ml [Lasix 20 MG/2 ML] 20 mg IV DAILY Potassium Chloride 10 Meq Tab* [Klor Con 10 MEQ] 10 meq PO BID 10/30/20 22:00 Magnesium Hydroxide 30 ml [Milk of Magnesia 30 ml] See Dose Instructions PO QHS Lab Tests 10/30/20 10/30/20 10/30/20 06:00 09:33 09:33 ESR 69 H Sodium 135 L Potassium 4.4 Chloride 99 Carbon Dioxide 23 Anion Gap 17.2 H BUN 18 H Creatinine 0.84 Estimated GFR > 60.0 Glucose 134 H Calcium 9.2 Total Bilirubin 1.10 AST 19 ALT 16 Alkaline Phosphatase 63 Troponin I < 0.012 NT-Pro-B Natriuret Pep 1050 H Serum Total Protein 6.7 Albumin 3.9 Thyroxine (T4) TSH 3rd Generation 1.620 10/30/20 09:53 ESR Sodium Potassium Chloride Carbon Dioxide Anion Gap BUN Creatinine Estimated GFR Glucose Calcium Total Bilirubin AST ALT Alkaline Phosphatase Troponin I NT-Pro-B Natriuret Pep Serum Total Protein Albumin Thyroxine (T4) 8.76 TSH 3rd Generation Code(s): I48.91 - UNSPECIFIED ATRIAL FIBRILLATION (2) CHF (congestive heart failure) Current Visit: Yes Status: Acute Code(s): I50.9 - HEART FAILURE, UNSPECIFIED (3) Leukocytosis Current Visit: Yes Status: Acute Code(s): D72.829 - ELEVATED WHITE BLOOD CELL COUNT, UNSPECIFIED - Discharge Discharge Date: 10/31/20 Disposition: Home, Self-Care Condition: Stable Prescriptions: New Diltiazem HCl 120 mg [Cardizem CD 120 MG] 120 mg PO DAILY 30 Days #30 cap Apixaban [Eliquis 2.5 mg Tablet] 5 mg PO BID #60 tablet Potassium Chloride 10 Meq Tab* [Klor Con 10 MEQ] 10 meq PO BID #30 tab Furosemide 20 mg [Lasix 20 mg] 20 mg PO DAILY #30 tablet Continue Polyethylene Glycol 3350 17 gm [Miralax Powder 17GM PACKET] 1 packet PO QAM Magnesium Hydroxide 30 ml [Milk of Magnesia 30 ml] 30 - 60 ml PO QHS Cholecalciferol (Vitd3)/Vit K2 [D3 + K2 Dots 1,000 Units Tab] 1 tab PO WEEKLY Lorazepam 1 mg [Ativan 1 MG] 1 mg PO BID PRN PRN PRN Reason: Anxiety Levothyroxine Sodium 25 Mcg [Synthroid 25 Mcg] 37.5 mcg PO DAILY Discontinued Naproxen 500 mg [Naprosyn 500 MG] 500 mg PO BIDPRN PRN #10 tablet PRN Reason: Pain Follow up with: KINSEY HART MD [Primary Care Provider] - 5 Days
[2020-10-31 07:56] VITALS: BP 109/60; PULSE 93
[2020-10-31 08:32] VITALS: O2SAT 94
[2020-10-31] MEDS: ELIQUIS 2.5 MG TABLET PO SCH (09:29)
[2020-10-31] MEDS: Cardizem CD 120 MG PO SCH (09:30)
[2020-10-31] MEDS: Lasix 20 MG/2 ML IV SCH (09:31)
[2020-10-31] MEDS: Klor Con 10 MEQ PO SCH (09:31)
[2020-10-31] MEDS: ROCEPHIN 1 Gm-D5w 50 ml Bag** 1 G/50 ML IVPB IV SCH (09:32)
[2020-10-31] MEDS: SYNTHROID 25 MCG PO SCH (09:32)
[2020-10-31] MEDS: Miralax Powder 17GM PACKET PO SCH (09:32)
[2020-10-31] MEDS ORDERED: ROCEPHIN 1 Gm-D5w 50 ml Bag** 1 G/50 ML IVPB IV SCH (10:00)
[2020-10-31 12:14] LABS: T3 Uptake 29 % (24-39)
--- NOTE | 2020-11-02 07:41 | ECHO ---
Transthoracic echocardiographic examination and color Doppler was done on 10/30/2020. INDICATION: Pericardial effusion, shortness of breath. IMPRESSION: 1) NO DEFINITE REGIONAL WALL MOTION ABNORMALITY. ESTIMATED GLOBAL LEFT VENTRICULAR EJECTION FRACTION AROUND 60%. 2) MILD TRICUSPID REGURGITATION. RIGHT VENTRICULAR SYSTOLIC PRESSURE OF 42 MM OF MERCURY. 3) TRACE AORTIC REGURGITATION. 4) LEFT VENTRICULAR DIASTOLIC DYSFUNCTION. 5) LEFT VENTRICULAR HYPERTROPHY. 6) MODERATOR BAND IN THE RIGHT VENTRICLE. 7) PERICARDIAL EFFUSION, MILD. The left ventricle is visualized and demonstrated adequate motion of all the segments. Estimated global left ventricular ejection fraction around 60%. There is concentric left ventricular hypertrophy. The mitral valve is seen and this opens adequately. No significant mitral regurgitation is seen. Left atrium is normal. The tissue Doppler study of the lateral mitral annulus suggestive of left ventricular diastolic dysfunction. The aortic valve opens adequately. There is trace aortic regurgitation. The right side chambers are normal. There is a moderator band in the right ventricle. There is mild tricuspid regurgitation. The right ventricular systolic pressure of 42 mm of Mercury. There is also a component of pericardial effusion which appears to be mild in degree. I could not adequately quantify pericardial effusion due to limited views. If clinically indicated would suggest CT scan of the chest.
[2020-11-02 19:16] LABS: Thyroglobulin Antibody <1.0 IU/mL (0.0-0.9)
== END 2020-10-31 10:55 | disposition home or self-care (01) | DRG 310 ==
LOC: ED 16:25 → ICU 10-30 00:22 → MED SURG 10-30 15:00
PROVIDERS: ADMIT General Practice; ATTEND General Practice
DX: I48.91 Unspecified atrial fibrillation (principal); R07.9 Chest pain, unspecified; R00.2 Palpitations; I50.9 Heart failure, unspecified; D72.829 Elevated white blood cell count, unspecified; R06.02 Shortness of breath; E03.9 Hypothyroidism, unspecified; Z79.899 Other long term (current) drug therapy; Z20.822 Contact with and (suspected) exposure to COVID-19
CPT/HCPCS: 36000; 36415; 71045; 71260; 80053; 81001; 83735; 83880; 84436; 84443; 84479; 84484; 85025; 85379; 85610; 85652; 86800; 93005; 93306; 94760; 94762; 96372; 96374; 96375; 96376; 99285; U0003; J0696; J1650; J1940; J2270; J2405; A9270-GY

== ENCOUNTER 2020-10-31 21:38 | Emergency (ER) | payer MEDICARE, OTHER ==
[2020-10-31] MEDS ORDERED: XYLOCAINE 1% HCL 20 ML MDV IJ ONE (21:39)
[2020-10-31] MEDS ORDERED: Rocephin 1000 MG INJ IM ONE (22:09)
[2020-10-31] MEDS ORDERED: solu-CORTEF 250MG IM ONE (22:12)
--- NOTE | 2020-10-31 22:14 | ERPHSYRPT ---
- History of Present Illness Time Seen by Provider: 10/31/20 22:12 Source: patient Exam Limitations: no limitations Patient Subjective Stated Complaint: Patient states she was discharged from this hospital this am. Patient is concerned because she started running a fever again this evening. Reports a productive cough with yellow/green sputum. Denies any chest pain but states has a pain #6 on 0-10 scale in left shoulder. Triage Nursing Assessment: Patient ambulated to room without difficulties or SOB noted during ambulation. Lungs clear with slightly diminished lung sounds to left lung. Weak, dry, non-productive cough noted during assessment. Skin pale, warm, dry. Physician History: Patient states she was discharged from this hospital this am. Patient is concerned because she started running a fever again this evening. Reports a productive cough with yellow/green sputum. Denies any chest pain but states has a pain #6 on 0-10 scale in left shoulder. Timing/Duration: today Cough Quality/Degree: productive cough Associated Symptoms: cough, other (pain in left shoulder) Allergies/Adverse Reactions: amoxicillin trihydrate [From Augmentin] Allergy (Verified 10/31/20 21:59) Penicillins Allergy (Verified 10/31/20 21:59) potassium clavulanate [From Augmentin] Allergy (Verified 10/31/20 21:59) Sulfa (Sulfonamide Antibiotics) Allergy (Verified 10/31/20 21:59) Home Medications: Cholecalciferol (Vitd3)/Vit K2 [D3 + K2 Dots 1,000 Units Tab] 1 tab PO WEEKLY 11/10/16 [History] Lorazepam 1 mg [Ativan 1 MG] 1 mg PO BID PRN PRN 11/10/16 [History] Magnesium Hydroxide 30 ml [Milk of Magnesia 30 ml] 30 - 60 ml PO QHS 11/10/16 [History] Polyethylene Glycol 3350 17 gm [Miralax Powder 17GM PACKET] 1 packet PO QAM 11/10/16 [History] Levothyroxine Sodium 25 Mcg [Synthroid 25 Mcg] 37.5 mcg PO DAILY 10/29/17 [History] Hx Tetanus, Diphtheria Vaccination/Date Given: Yes Hx Influenza Vaccination/Date Given: Yes Hx Pneumococcal Vaccination/Date Given: Yes Immunizations Up to Date: Yes Travel Risk - International Travel Have you traveled outside of the country in past 3 weeks: No - Coronavirus Screening Are you exhibiting any of the following symptoms?: Yes Symptoms: Fever, Cough: New Onset Close contact with a COVID-19 positive Pt in past 14-21 Days: No - Vaccine Status Have you recieved a Covid-19 vaccination: Yes Psychometrician: Moderna - Vaccination Dates Date of 2cond Vaccination (if applicable): Mar 2020 - Review of Systems Constitutional: No Fever, No Chills Eyes: No Symptoms Ears, Nose, & Throat: No Symptoms Respiratory: Cough, No Dyspnea Cardiac: No Chest Pain, No Edema, No Syncope Abdominal/Gastrointestinal: No Abdominal Pain, No Nausea, No Vomiting, No Diarrhea Genitourinary Symptoms: No Dysuria Musculoskeletal: No Back Pain, No Neck Pain Skin: No Rash Neurological: No Dizziness, No Focal Weakness, No Sensory Changes Psychological: No Symptoms Endocrine: No Symptoms All Other Systems: Reviewed and Negative - Past Medical History Pertinent Past Medical History: Yes Neurological History: No Pertinent History ENT History: Cataracts Cardiac History: No Pertinent History Respiratory History: Asthma Endocrine Medical History: Hypothyroidism Musculoskeletal History: No Pertinent History GI Medical History: No Pertinent History History: No Pertinent History Psycho-Social History: Anxiety Female Reproductive Disorders: No Pertinent History Other Medical History: immune deficiency, skin cancer - Past Surgical History Past Surgical History: Yes Neuro Surgical History: No Pertinent History Cardiac: No Pertinent History Respiratory: No Pertinent History Gastrointestinal: Appendectomy Genitourinary: No Pertinent History Musculoskeletal: No Pertinent History Female Surgical History: Hysterectomy Other Surgical History: sinus surgery - Social History Smoking Status: Never smoker Exposure to second hand smoke: Yes Drug Use: none Patient Lives Alone: Yes - Female History Hx Now: No - Nursing Vital Signs Nursing Vital Signs: Initial Vital Signs Temperature 98.5 F 10/31/20 21:51 Pulse Rate 101 H 10/31/20 21:51 Respiratory Rate 21 10/31/20 21:51 Blood Pressure 112/72 10/31/20 21:51 O2 Sat by Pulse Oximetry 94 L 10/31/20 21:51 Pain Scale Pain Intensity 6 - Physical Exam General Appearance: no apparent distress, alert Eye Exam: PERRL/EOMI, eyes nml inspection Ears, Nose, Throat Exam: normal ENT inspection, TMs normal, pharynx normal, moist mucous membranes Neck Exam: normal inspection, non-tender, supple, full range of motion Respiratory Exam: diminished breath sounds, rhonchi, No respiratory distress Cardiovascular Exam: regular rate/rhythm, normal heart sounds Gastrointestinal/Abdomen Exam: soft, No tenderness Back Exam: normal inspection, No CVA tenderness, No vertebral tenderness Extremity Exam: normal inspection, normal range of motion Neurologic Exam: alert, oriented x 3, cooperative, normal mood/affect, sensation nml, No motor deficits Skin Exam: normal color, warm, dry, No rash Lymphatic Exam: No adenopathy SpO2: 94 - Course Nursing assessment & vital signs reviewed: Yes - Radiology Exams Chest X-ray Interpretation: Reviewed by me Ordered Tests: Active Orders 24 hr Category Date Time Status CHEST 2 VIEWS (PA AND LAT) Stat Exams 10/31/20 22:21 Taken CBC W DIFF Stat Lab 10/31/20 22:00 Ordered CMP Stat Lab 10/31/20 22:01 Ordered Medication Summary Discontinued Medications Generic Name Dose Route Start Last Admin Trade Name Freq PRN Reason Stop Dose Admin Ceftriaxone Sodium 1,000 mg 10/31/20 22:09 10/31/20 22:33 Rocephin 1000 Mg Inj IM 10/31/20 22:10 1,000 mg STAT ONE Administration Ceftriaxone Sodium Confirm 10/31/20 22:26 Rocephin 1000 Mg Inj Administered 10/31/20 22:27 Dose 1,000 mg .ROUTE .STK-MED ONE Hydrocortisone Sodium Succinate 250 mg 10/31/20 22:12 10/31/20 22:27 Solu-Cortef 250mg IM 10/31/20 22:13 250 mg ONCE ONE Administration Hydrocortisone Sodium Succinate Confirm 10/31/20 22:26 Solu-Cortef 250mg Administered 10/31/20 22:27 Dose 250 mg .ROUTE .STK-MED ONE - Progress Progress: improved Air Movement: good Blood Culture(s) Obtained: No Antibiotics given: Yes Counseled pt/family regarding: lab results, diagnosis, need for follow-up, rad results - Departure Departure Disposition: Home Clinical Impression: Infiltrate of lower lobe of right lung present on imaging study Condition: Stable Critical Care Time: No Referrals: KINSEY HART MD [Primary Care Provider] - Instructions: Community-Acquired Pneumonia, Adult (DC) Additional Instructions: Discharge/Care Plan ROBERTO MARIE was seen on 10/31/20 in the Emergency Room. The patient was counseled regarding Diagnosis,Lab results, Imaging studies, need for follow up and when to return to the Emergency Room. Prescriptions given: Discharge Note I have spoken with the patient and/or caregivers. I have explained the patient's condition, diagnosis and treatment plan based on the information available to me at this time. I have answered the patient's and/or caregiver's questions and addressed any concerns. The patient and/or caregivers have as good understanding of the patient's diagnosis, condition and treatment plan as can be expected at this point. The vital signs have been stable. The patient's condition is stable and appropriate for discharge from the emergency department. The patient will pursue further outpatient evaluation with the primary care physician or other designated or consulting physician as outlined in the discharge instructions. The patient and/or caregivers are agreeable to this plan of care and follow-up instructions have been explained in detail. The patient and/or caregivers have received these instruction. The patient/and or caregivers are aware that any significant change in condition or worsening of symptoms should prompt an immediate return to this or the closest emergency department or call 911. FRANKROBERTO ALVARADO was seen on 10/31/20 n the Emergency Room. At that time you were treated for an emergent condition, during your visit Laboratory, Radiology and/or other procedures may have been ordered. It is very important that you follow-up with your Primary Care Physician KINSEY HART within the next 24-48 hours to review your Emergency Room visit and the final results of testing that was ordered. Some test results such as Urine Cultures, Blood Cultures, and other cultures if ordered will not be finalized for 24-48 hours. If you do not have a Primary Care Provider please call the medical records department at [phone] to obtain a copy of your results or you may sign into our patient portal to obtain these results by visiting us @ [email or web address] and completing the following steps: 1. Click on the Patient Portal link 2. Click the Patient Self Enrollment Link to complete the enrollment form and entering your 3. Once the enrollment form is completed you will receive an email with a temporary ID and password at the email address you provided. 4. Next choose a user name and password. Your user name must be at least 4 characters long and your password must be at least 4 characters long. 5. Choose a security question from the list and provide your answer to the question. If you already have signed into the Health Portal you may access your Health Care Information 12/09 by the following steps: 1. Login to our website @ [email or web address] 2. Enter your original user name and password. FAQS The [facility] Health Portal is an online tool that contains your Lab Results, Radiology Reports, Visit History, Discharge Instructions and Health Summary Lab and Radiology Results will not be available for 72 hours on the portal. The Portal is a secure site, passwords are encryted and URLs are re-written so they cannot be copied and pasted. You and authorized family members are the only ones who can access your Portal. Also there is a timeout feature that protects your information if you leave the Portal page open. If you have technical difficulty please use the Contact Us link on the page this will allow you to submit any questions you have regarding the Portal or you may contact the Medical Record Department at [phone] ext [phone]. Prescriptions: Levofloxacin [Levaquin 500 MG Tablet] 500 mg PO QAM #7 tablet Methylprednisolone Packet [Medrol Dosepack] 4 mg PO UD #21 packet
[2020-10-31] MEDS ORDERED: Rocephin 1000 MG INJ ONE (22:26)
[2020-10-31] MEDS ORDERED: solu-CORTEF 250MG ONE (22:26)
[2020-10-31 22:38] LABS: Absolute Neutrophil Ct (ANC) 8.92 (1.4-6.9); BASOPHIL % 0.2 % (0.0-0.4); Basophil (Absolute #) 0.02 (0-0.4); Eosinophil % 1.3 % (0.00-5.0); Eosinophil (Absolute #) 0.15 (0-0.5); Hematocrit 40.1 % (35-47); Hemoglobin 12.8 gm/dl (12.0-16.0); Lymphocyte (Absolute #) 1.46 (1.0-4.6); Lymphocytes % 12.7 % (24.0-44.0); Mean Cell Volume 92.4 fl (78-100); Mean Corpuscular Hemoglobin 29.5 pg (26-32); Mean Corpuscular Hgb Concent. 31.9 g/dl (32-36); Mean Platelet Volume 9.9 fl (7.5-11.0); Monocyte (Absolute #) 0.99 (0.0-1.3); Monocytes % 8.6 % (0.0-12.0); Neutrophil % 77.2 % (36.0-66.0); Platelet Count 395 K/mm3 (150-450); Red Blood Count 4.34 M/mm3 (4.1-5.4); Red Cell Distribution Width 13.8 % (11.5-14.0); White Blood Count 11.5 K/mm3 (4.0-10.5)
[2020-10-31 22:40] VITALS: BP 106/67; PULSE 98; O2SAT 95
[2020-10-31 22:47] LABS: ALKALINE PHOSPHATASE 107 U/L (38-126); ANION GAP 13.2 MEQ/L (5-15); BLOOD UREA NITROGEN 17 mg/dL (7-17); CHLORIDE 94 mmol/L (98-107); Calcium 9.1 mg/dL (8.4-10.2); Carbon Dioxide 31 mmol/L (22-30); Creatinine 1 0.84 mg/dL (0.52-1.04); EST GLOMERULAR FILTRATION RATE > 60.0 ML/MIN; Glucose 109 mg/dL (74-106); Potassium 3.6 mmol/L (3.5-5.1); SGOT/AST 51 U/L (14-36); SGPT/ALT 59 U/L (0-35); SODIUM 134 mmol/L (137-145); Total Protein 7.3 g/dL (6.3-8.2)
--- NOTE | 2020-11-01 07:25 | XRAY ---
Indication: Cough. Comparison: October 29, 2020. PA/lateral chest again hyperinflated with new mild bibasilar interstitial alveolar opacities and small bibasilar effusions. Remaining heart and upper lungs unremarkable.
== END 2020-10-31 22:51 | disposition home or self-care (01) ==
LOC: ED 21:38
DX: R91.8 Other nonspecific abnormal finding of lung field (principal); R50.9 Fever, unspecified; R05 Cough; Z79.899 Other long term (current) drug therapy; E03.9 Hypothyroidism, unspecified
CPT/HCPCS: 36415; 71046; 80053; 85025; 96372; 99284; U0003; J0696; J1720

== ENCOUNTER 2020-11-08 19:20 | Emergency (ER) | payer MEDICARE, OTHER ==
[2020-11-08] MEDS ORDERED: Sodium Chloride 0.9% 500 ML 500 ML IV ONE ×2 (19:38→19:44)
--- NOTE | 2020-11-08 20:03 | ERPHSYRPT ---
- History of Present Illness Time Seen by Provider: 11/08/20 19:23 Historian: patient Exam Limitations: no limitations Patient Subjective Stated Complaint: pt states "I was reading the label on my xarelto and I have been taking it twice a day." Triage Nursing Assessment: pt ambulated into the er; pt is axo x4; pt in anxious; c/o over taking blood thinner; pt states "I have been taking my xarelto twice a day since last monday."; pt states that she is on blood thinner for afib; pt states that she woke up this morning with left side and left flank pain; pt denies dark stool and blood in urine; pt denies headache; denies N/V/D; no tenderness present to abd; active bowel sounds in all quads; clear lung sounds in all lobes; tachycardic; hypertensive Physician History: 75 years old female with newly diagnosed atrial fibrillation on Xarelto presented in the ER with chief complaint of left flank pain when she woke up this morning moderate intensity without any radiation, partial relief with taking deep breath and certain position and more with palpation without associated nausea vomiting or diarrhea. Patient reports she was supposed to take Xarelto 20 mg once a day but she has been doing twice a day for almost 1 week and is very nervous about it. Denies any hematuria, hematochezia, melena hematemesis/hemoptysis. Denies any generalized weakness fatigue or tiredness. No chest pain or palpitations. No increased bruising. Timing/Duration: today, constant, worse Activities at Onset: sleep Quality: aching, dullness Abdominal Pain Onset Location: flank Pain Radiation: no radiation Severity of Pain-Max: moderate Severity of Pain-Current: moderate Modifying Factors: Improves With: breathing, movement. Worsens With: palpation Associated Symptoms: denies symptoms Previous symptoms: no prior history Allergies/Adverse Reactions: amoxicillin trihydrate [From Augmentin] Allergy (Verified 11/08/20 19:33) Penicillins Allergy (Verified 11/08/20 19:33) potassium clavulanate [From Augmentin] Allergy (Verified 11/08/20 19:33) Sulfa (Sulfonamide Antibiotics) Allergy (Verified 11/08/20 19:33) Home Medications: Cholecalciferol (Vitd3)/Vit K2 [D3 + K2 Dots 1,000 Units Tab] 1 tab PO WEEKLY 11/10/16 [History] Polyethylene Glycol 3350 17 gm [Miralax Powder 17GM PACKET] 1 packet PO QAM 11/10/16 [History] Levothyroxine Sodium 25 Mcg [Synthroid 25 Mcg] 37.5 mcg PO DAILY 10/29/17 [History] Omeprazole 20 mg PO DAILY 11/08/20 [History] Rivaroxaban [Xarelto] 20 mg PO DAILY 11/08/20 [History] Hx Tetanus, Diphtheria Vaccination/Date Given: Yes Hx Influenza Vaccination/Date Given: Yes Hx Pneumococcal Vaccination/Date Given: Yes Travel Risk - International Travel Have you traveled outside of the country in past 3 weeks: No - Coronavirus Screening Are you exhibiting any of the following symptoms?: No Close contact with a COVID-19 positive Pt in past 14-21 Days: No - Vaccine Status Have you recieved a Covid-19 vaccination: Yes Coordinator Of Health Services: Moderna - Vaccination Dates Date of 2cond Vaccination (if applicable): Mar 2020 - Review of Systems Constitutional: No Symptoms Eyes: No Symptoms Ears, Nose, & Throat: No Symptoms Respiratory: No Symptoms Cardiac: No Symptoms Abdominal/Gastrointestinal: Abdominal Pain Genitourinary Symptoms: No Symptoms Musculoskeletal: No Symptoms Skin: No Symptoms Neurological: No Symptoms Psychological: No Symptoms Endocrine: No Symptoms Hematologic/Lymphatic: No Symptoms Immunological/Allergic: No Symptoms - Past Medical History Pertinent Past Medical History: Yes Neurological History: No Pertinent History ENT History: Cataracts Cardiac History: Arrhythmia, Congestive Heart Failure Respiratory History: Asthma Endocrine Medical History: Hypothyroidism Musculoskeletal History: No Pertinent History GI Medical History: No Pertinent History History: No Pertinent History Psycho-Social History: Anxiety Female Reproductive Disorders: No Pertinent History Other Medical History: immune deficiency, skin cancer - Past Surgical History Past Surgical History: Yes Neuro Surgical History: No Pertinent History Cardiac: No Pertinent History Respiratory: No Pertinent History Gastrointestinal: Appendectomy Genitourinary: No Pertinent History Musculoskeletal: No Pertinent History Female Surgical History: Hysterectomy Other Surgical History: sinus surgery - Social History Smoking Status: Never smoker Exposure to second hand smoke: Yes Drug Use: none Patient Lives Alone: Yes - Nursing Vital Signs Nursing Vital Signs: Initial Vital Signs Temperature 98.3 F 11/08/20 19:33 Pulse Rate 108 H 11/08/20 19:33 Respiratory Rate 16 11/08/20 19:33 Blood Pressure 140/85 11/08/20 19:33 O2 Sat by Pulse Oximetry 97 11/08/20 19:33 Pain Scale Pain Intensity 5 - Physical Exam General Appearance: no apparent distress, alert Eye Exam: PERRL/EOMI Ears, Nose, Throat Exam: normal ENT inspection, pharynx normal Neck Exam: normal inspection, supple, full range of motion Respiratory Exam: normal breath sounds, lungs clear Cardiovascular Exam: normal heart sounds, tachycardia Gastrointestinal/Abdomen Exam: soft, normal bowel sounds, tenderness (Left flank. Positive left CVA tenderness.) Back Exam: normal inspection, normal range of motion, CVA tenderness Extremity Exam: normal inspection, normal range of motion, pelvis stable Neurologic Exam: alert, oriented x 3, cooperative Skin Exam: normal color SpO2 Interpretation: normal SpO2: 97 O2 Delivery: Room Air Ordered Tests: Active Orders 24 hr Category Date Time Status IV Insertion STAT Care 11/08/20 19:46 Active ABDOMEN AND PELVIS W CONTRAST [CT] Stat Exams 11/08/20 19:38 Taken CBC W DIFF Stat Lab 11/08/20 20:00 Completed CMP Stat Lab 11/08/20 20:00 Completed LIPASE Stat Lab 11/08/20 20:00 Completed Manual Differential NC Stat Lab 11/08/20 20:00 Completed UA W/RFX UR CULTURE Stat Lab 11/08/20 19:39 Completed Medication Summary Discontinued Medications Generic Name Dose Route Start Last Admin Trade Name Freq PRN Reason Stop Dose Admin Sodium Chloride 500 mls @ 500 mls/hr 11/08/20 19:38 11/08/20 20:46 Sodium Chloride 0.9% 500 Ml IV 11/08/20 20:37 Infused .Q1H ONE Infusion Sodium Chloride Confirm 11/08/20 19:44 Sodium Chloride 0.9% 500 Ml Administered 11/08/20 19:45 Dose 500 mls @ ud IV .STK-MED ONE Lab/Rad Data: Laboratory Result Diagrams 11/08/20 20:00 11/08/20 20:00 Laboratory Results 11/08/20 11/08/20 11/08/20 Range/Units 20:00 20:00 19:39 WBC 13.6 H (4.0-10.5) K/mm3 RBC 4.86 (4.1-5.4) M/mm3 Hgb 13.9 (12.0-16.0) gm/dl Hct 45.1 (35-47) % MCV 92.8 (78-100) fl MCH 28.6 (26-32) pg MCHC 30.8 L (32-36) g/dl RDW 14.2 H (11.5-14.0) % Plt Count 616 H (150-450) K/mm3 MPV 9.7 (7.5-11.0) fl Sodium 135 L (137-145) mmol/L Potassium 4.6 (3.5-5.1) mmol/L Chloride 100 (98-107) mmol/L Carbon Dioxide 25 (22-30) mmol/L Anion Gap 14.8 (5-15) MEQ/L BUN 20 H (7-17) mg/dL Creatinine 0.84 (0.52-1.04) mg/dL Estimated GFR > 60.0 ML/MIN Glucose 136 H (74-106) mg/dL Calcium 9.1 (8.4-10.2) mg/dL Total Bilirubin 0.30 (0.2-1.3) mg/dL AST 22 (14-36) U/L ALT 27 (0-35) U/L Alkaline Phosphatase 100 (38-126) U/L Serum Total Protein 6.7 (6.3-8.2) g/dL Albumin 3.8 (3.5-5.0) g/dL Lipase 180 (23-300) U/L Urine Color STRAW (YELLOW) Urine Appearance CLEAR (CLEAR) Urine pH 7.0 (5-6) Ur Specific [place] 1.011 (1.005-1.025) Urine Protein NEGATIVE (Negative) Urine Ketones NEGATIVE (NEGATIVE) Urine Blood NEGATIVE (0-5) Pankaj/ul Urine Nitrite NEGATIVE (NEGATIVE) Urine Bilirubin NEGATIVE (NEGATIVE) Urine Urobilinogen NEGATIVE (0-1) mg/dL Ur Leukocyte Esterase NEGATIVE (NEGATIVE) Urine WBC (Auto) NONE (0-5) /HPF Urine RBC (Auto) NONE (0-2) /HPF U Epithel Cells (Auto) NONE (FEW) /HPF Urine Bacteria (Auto) NONE SEEN (NEGATIVE) /HPF Urine Culture Reflexed NO (NO) Urine Glucose NEGATIVE (NEGATIVE) mg/dL - Progress Progress: improved Progress Note: 11/08/20 21:33 She is offered pain medication which she refused. Given small fluid bolus, work-up showed white count of 13 and stable H&H. Chemistry profile grossly unremarkable and no UTI with no hematuria. I have obtained CT abdomen pelvis with contrast which is negative for any acute findings. Does have small left- sided pleural effusion which could be causing some pain but no intra-abdominal findings. She is maintaining oxygen saturation are 98% on room air, do not think she needs any antibiotics. She is advised to start taking Xarelto once a day. She is counseled. Patient feels better on reevaluation. Stable for discharge with outpatient follow-up. Counseled pt/family regarding: lab results, diagnosis, need for follow-up, rad results - Departure Departure Disposition: Home Clinical Impression: Left flank pain, Anticoagulant long-term use Condition: Stable Critical Care Time: No Referrals: KINSEY HART MD [Primary Care Provider] - (1-2 days for reevaluation.) Instructions: Flank Pain Additional Instructions: Take Xarelto once a day as recommended. Take Tylenol as needed. Do not take NSAIDs like ibuprofen/Aleve. Follow-up with primary care physician for reevaluation. Return to ER for any worsening.
[2020-11-08 20:05] LABS: Hematocrit 45.1 % (35-47); Hemoglobin 13.9 gm/dl (12.0-16.0); Mean Cell Volume 92.8 fl (78-100); Mean Corpuscular Hemoglobin 28.6 pg (26-32); Mean Corpuscular Hgb Concent. 30.8 g/dl (32-36); Mean Platelet Volume 9.7 fl (7.5-11.0); Platelet Count 616 K/mm3 (150-450); Red Blood Count 4.86 M/mm3 (4.1-5.4); Red Cell Distribution Width 14.2 % (11.5-14.0); White Blood Count 13.6 K/mm3 (4.0-10.5)
[2020-11-08 20:14] LABS: Appearance CLEAR (CLEAR); Bilirubin NEGATIVE (NEGATIVE); Blood NEGATIVE Ery/ul (0-5); Glucose NEGATIVE (NEGATIVE); Ketones NEGATIVE (NEGATIVE); Leukocyte Esterase NEGATIVE (NEGATIVE); Nitrite NEGATIVE (NEGATIVE); Protein,Urine Dip NEGATIVE (Negative); Specific Gravity 1.011 (1.005-1.025); Urobilinogen NEGATIVE mg/dL (0-1)
[2020-11-08 20:16] LABS: ALBUMIN 3.8 g/dL (3.5-5.0); ALKALINE PHOSPHATASE 100 U/L (38-126); ANION GAP 14.8 MEQ/L (5-15); BLOOD UREA NITROGEN 20 mg/dL (7-17); CHLORIDE 100 mmol/L (98-107); Calcium 9.1 mg/dL (8.4-10.2); Carbon Dioxide 25 mmol/L (22-30); Creatinine 1 0.84 mg/dL (0.52-1.04); EST GLOMERULAR FILTRATION RATE > 60.0 ML/MIN; Glucose 136 mg/dL (74-106); LIPASE 180 U/L (23-300); Potassium 4.6 mmol/L (3.5-5.1); SGOT/AST 22 U/L (14-36); SGPT/ALT 27 U/L (0-35); SODIUM 135 mmol/L (137-145); Total Protein 6.7 g/dL (6.3-8.2)
[2020-11-08 20:25] LABS: Bacteria NONE SEEN /HPF (NEGATIVE)
[2020-11-08 21:13] VITALS: BP 125/76; PULSE 92
[2020-11-08 21:36] VITALS: O2SAT 97
[2020-11-08 22:37] LABS: BAND 5 % (0.0-2.0); Basophil 2 % (0.0-1.0); Lymphocytes 15 % (24-44); Monocyte 9 % (0.0-12.0); Neutrophils 69 % (36.0-66.0); Platelet Estimate NORMAL (NORMAL); Total Cells Counted 100
--- NOTE | 2020-11-09 08:47 | XRAY ---
Indication: Abdomen pain. Multiple contiguous axial images obtained through the abdomen and pelvis using 80 cc Isovue 370 contrast. Comparison: November 29, 2018. Lung bases demonstrates mild bibasilar dependent atelectasis left greater than right with stable tiny left lower lobe calcified granuloma. Heart is borderline enlarged. Stomach is distended with food. Noncontrasted stomach and bowel loops appear nonobstructed. Stable minimal sigmoid diverticulosis. Again appendectomy and hysterectomy reported. Gallbladder contracted without gallstones. Stable splenic calcified granuloma. No free fluid/air. Remaining liver, pancreas, spleen, adrenal glands, kidneys, ureters, and bladder are unremarkable. Minimal aortoiliac calcifications. No AAA or pathologic retroperitoneal lymphadenopathy. Osseous structures intact again with minimal degenerative changes throughout the lumbar spine. Stable small fatty umbilical hernia. Impression: 1. Stable sigmoid diverticulosis, small fatty umbilical hernia, and old granulomatous disease. 2. Remaining CT abdomen/pelvis with contrast exam is negative. Comment: Preliminary interpretation made by [facility]. No critical discrepancy.
== END 2020-11-08 21:41 | disposition home or self-care (01) ==
LOC: ED 19:20
DX: R10.9 Unspecified abdominal pain (principal); I48.91 Unspecified atrial fibrillation; Z79.01 Long term (current) use of anticoagulants; Z79.899 Other long term (current) drug therapy
CPT/HCPCS: 36000; 36415; 74177; 80053; 81001; 83690; 85025; 99284

== ENCOUNTER 2020-11-09 18:31 | Emergency (ER) | payer MEDICARE, OTHER | END 2020-11-09 19:00 | disposition left against medical advice (07) | LOC: ED 18:31 | DX: Z53.9 Procedure and treatment not carried out, unspecified reason (principal) ==

== ENCOUNTER 2021-01-17 10:09 | Emergency (ER) | payer MEDICARE, OTHER ==
[2021-01-17 10:32] VITALS: O2SAT 99
--- NOTE | 2021-01-17 11:43 | ERPHSYRPT ---
- History of Present Illness Time Seen by Provider: 01/17/21 10:35 Source: patient Exam Limitations: no limitations Patient Subjective Stated Complaint: Pt states "I was taking my crock pots down stairs and I missed the last step and hurt my right ankle." Triage Nursing Assessment: Pt presented alert and oriented X 3, skin wpd Pt ambulates with a limp, pt right ankle swollen and tender lateral. CSM X 4 Physician History: Patient was carrying her crock pair of pots downstairs after Thanksgiving dinner when she fell she cracked her crockpot and injured her left knee and right ankle. The right knee has some pain and an abrasion however the right ankle is extremely painful with weightbearing and is swollen on the lateral malleolus. Method of Injury: fell Occurred: this morning Quality: stabbing, throbbing Severity of Pain-Max: moderate Severity of Pain-Current: moderate Lower Extremities Pain: knee: left, ankle: right Modifying Factors: Improves With: movement Associated Symptoms: No unable to bear weight, No snapping sensation, No popping sensation Allergies/Adverse Reactions: amoxicillin trihydrate [From Augmentin] Allergy (Verified 11/08/20 19:33) Penicillins Allergy (Verified 11/08/20 19:33) potassium clavulanate [From Augmentin] Allergy (Verified 11/08/20 19:33) Sulfa (Sulfonamide Antibiotics) Allergy (Verified 11/08/20 19:33) Home Medications: Cholecalciferol (Vitd3)/Vit K2 [D3 + K2 Dots 1,000 Units Tab] 1 tab PO WEEKLY 11/10/16 [History] Polyethylene Glycol 3350 17 gm [Miralax Powder 17GM PACKET] 1 packet PO QAM 11/10/16 [History] Levothyroxine Sodium 25 Mcg [Synthroid 25 Mcg] 37.5 mcg PO DAILY 10/29/17 [History] Omeprazole 20 mg PO DAILY 11/08/20 [History] Rivaroxaban [Xarelto] 20 mg PO DAILY 11/08/20 [History] Hx Tetanus, Diphtheria Vaccination/Date Given: Yes Hx Influenza Vaccination/Date Given: Yes Hx Pneumococcal Vaccination/Date Given: Yes Immunizations Up to Date: No Travel Risk - International Travel Have you traveled outside of the country in past 3 weeks: No - Coronavirus Screening Are you exhibiting any of the following symptoms?: No Close contact with a COVID-19 positive Pt in past 14-21 Days: No - Vaccine Status Have you recieved a Covid-19 vaccination: Yes [employer]: Moderna - Vaccination Dates Date of 2cond Vaccination (if applicable): 03/2020 Comment: and booster on 01/11 - Review of Systems Constitutional: No Fever, No Chills Eyes: No Symptoms Ears, Nose, & Throat: No Symptoms Respiratory: No Cough, No Dyspnea Cardiac: No Chest Pain, No Edema, No Syncope Abdominal/Gastrointestinal: No Abdominal Pain, No Nausea, No Vomiting, No Diarrhea Genitourinary Symptoms: No Dysuria Musculoskeletal: Joint Pain, Joint Swelling, No Back Pain, No Neck Pain Skin: No Rash Neurological: No Dizziness, No Focal Weakness, No Sensory Changes Psychological: No Symptoms Endocrine: No Symptoms All Other Systems: Reviewed and Negative - Past Medical History Pertinent Past Medical History: Yes Neurological History: No Pertinent History ENT History: Cataracts Cardiac History: Arrhythmia, Congestive Heart Failure Respiratory History: Asthma Endocrine Medical History: Hypothyroidism Musculoskeletal History: No Pertinent History GI Medical History: No Pertinent History History: No Pertinent History Psycho-Social History: Anxiety Female Reproductive Disorders: No Pertinent History Other Medical History: immune deficiency, skin cancer - Past Surgical History Past Surgical History: Yes Neuro Surgical History: No Pertinent History Cardiac: No Pertinent History Respiratory: No Pertinent History Gastrointestinal: Appendectomy Genitourinary: No Pertinent History Musculoskeletal: No Pertinent History Female Surgical History: Hysterectomy Other Surgical History: sinus surgery - Social History Smoking Status: Never smoker Exposure to second hand smoke: Yes Drug Use: none Patient Lives Alone: Yes - Nursing Vital Signs Nursing Vital Signs: Initial Vital Signs Temperature 97.2 F 01/17/21 10:27 Pulse Rate 88 01/17/21 10:27 Respiratory Rate 18 01/17/21 10:27 Blood Pressure 117/73 01/17/21 10:27 O2 Sat by Pulse Oximetry 99 01/17/21 10:27 Pain Scale Pain Intensity 8 - Physical Exam General Appearance: mild distress Eyes, Ears, Nose, Throat Exam: moist mucous membranes Neck Exam: normal inspection, non-tender, supple Cardiovascular/Respiratory Exam: no JVD, no respiratory distress Back Exam: normal inspection, normal range of motion Hips Exam: bilateral: non-tender, normal inspection, normal range of motion Legs Exam: bilateral leg: non-tender, normal inspection, normal range of motion Knees Exam: right knee: non-tender, normal inspection, normal range of motion, n o evidence of injury, left knee: pain, soft tissue tenderness Ankle Exam: right ankle: bone tenderness (Swelling and pain lateral malleolus), limited range of motion, pain, soft tissue tenderness, swelling, left ankle: non-tender, normal inspection, normal range of motion, no evidence of injury Foot Exam: bilateral foot: non-tender, normal inspection, normal range of motion, no evidence of injury, abrasions/lacerations Neuro/Tendon Exam: normal sensation, normal motor functions Mental Status Exam: alert, oriented x 3 Skin Exam: normal color, warm, dry SpO2 Interpretation: normal SpO2: 99 O2 Delivery: Room Air - Radiology Exams Ankle X-ray Interpretation: Interpreted by me, No Fracture Knee X-ray Interpretation: Interpreted by me, No Fracture Ordered Tests: Active Orders 24 hr Category Date Time Status ANKLE (3 VIEWS) Stat Exams 01/17/21 10:56 Taken KNEE (3 VIEWS) Stat Exams 01/17/21 10:32 Taken - Progress Progress: unchanged - Departure Departure Disposition: Home Clinical Impression: Sprain of right ankle, Abrasion, left knee, initial encounter Condition: Stable Critical Care Time: No Referrals: KINSEY HART MD [Primary Care Provider] - Follow up/PCP as directed Instructions: Ankle Sprain (DC) Prescriptions: Hydrocodone/Acetaminophen [Hydrocodone-Acetamin 5-325 mg] 1 tab PO Q6HPRN PRN 3 Days #12 tablet MDD 4 PRN Reason: Pain
[2021-01-17 12:08] VITALS: BP 104/71; PULSE 78
--- NOTE | 2021-01-17 18:47 | XRAY ---
Complications: Pain and swelling following fall. Comparison: November 26, 2019. 3 view right ankle now demonstrates mild anterolateral soft tissue swelling with stable tiny plantar heel spur. No other bony, articular, or soft tissue abnormalities.
--- NOTE | 2021-01-17 18:50 | XRAY ---
Indication: Pain following fall. Comparison: None 4 view left knee obtained. No bony, articular, or soft tissue abnormalities.
== END 2021-01-17 12:24 | disposition home or self-care (01) ==
LOC: ED 10:09
DX: S93.401A Sprain of unspecified ligament of right ankle, initial encounter (principal); W10.9XXA Fall (on) (from) unspecified stairs and steps, initial encounter; Y93.E9 Activity, other interior property and clothing maintenance; Y92.009 Unspecified place in unspecified non-institutional (private) residence as the place of occurrence of the external cause; S80.212A Abrasion, left knee, initial encounter; Z79.891 Long term (current) use of opiate analgesic
CPT/HCPCS: 73562; 73610; 99284

== ENCOUNTER → 2022-05-19 | Day surgery (SDC) | payer MEDICARE, OTHER ==
--- NOTE | 2022-05-18 13:04 | HP ---
DATE OF SURGERY: 05/19/2022 HISTORY OF PRESENT ILLNESS: The patient is a 76-year-old female presents with complaints of dysphagia, things getting hung up in upper esophagus. Got dilated about ten years ago. Last colonoscopy was two years ago by Dr. Kenton Banda with no polyps. She said she had polyps one time before. PAST MEDICAL HISTORY: Hypothyroidism. Atrial fibrillation. Asthma. Anxiety. PAST SURGICAL HISTORY: Hysterectomy. Appendectomy. Tubal ligation. ALLERGIES: AUGMENTIN. PENICILLIN. SULFA. MEDICATIONS: Losartan, levothyroxine, lorazepam, potassium, Oxybutynin, diltiazem. FAMILY HISTORY: None. SOCIAL HISTORY: None. REVIEW OF SYSTEMS: CONSTITUTIONAL: Denies fever or chills. CHEST: Denies shortness of breath. CVS: Denies chest pain. ABDOMEN: Denies abdominal pain. PHYSICAL EXAMINATION: GENERAL: No acute distress. CHEST: Nonlabored. No shortness of breath. CVS: Regular rate and rhythm. ABDOMEN: Soft. IMPRESSION: Dysphagia and history of colon polyp. PLAN: EGD with possible dilatation and colonoscopy with Dr. Demarcus Leigh. As dictated by Gaby Mullins NP.
[~2022-05-19] MED LIST: DIPRIVAN 200 MG/20 ML IV ONE; Lactated Ringers 1,000 ML IV ONE; Lactated Ringers 1,000 ML IV SCH; Versed 2 MG/2 ML Injection ONE
[2022-05-19 11:29] VITALS: O2SAT 97
[2022-05-19 11:52] VITALS: BP 129/79; PULSE 70
--- NOTE | 2022-05-19 14:48 | OP ---
SURGERY DATE: 05/19/2022 SURGERY TIME: 1017 PREOPERATIVE DIAGNOSIS: 1. EPIGASTRIC PAIN/DYSPHAGIA. 2. COLON SCREENING. POSTOPERATIVE DIAGNOSIS: 1. EPIGASTRIC PAIN/DYSPHAGIA. 2. COLON SCREENING. PROCEDURE: 1. EGD. 2. Funez dilatation to size 48. 3. Colonoscopy complete to cecum. SURGEON: Demarcus Leigh M.D. [employer] MANAGER: Medical Student, III. ANESTHESIA: MAC. COMPLICATIONS: None. CONDITION: Stable. INDICATION: The patient presents with epigastric pain and dysphagia. She also is due for colonoscopy. OPERATIVE PROCEDURE: She was taken to endoscopy. Left lateral decubitus position. Scope introduced. Pharyngoesophageal junction normal. Esophagus normal down to esophagogastric junction. There was grade 3/4 gastroesophageal reflux disease, quite a bit of irritation. There was a 2" hiatal hernia. Fundus, body, and antrum satisfactory. Pylorus satisfactory. Duodenal bulb satisfactory. Second portion satisfactory. Scope looped upon itself. A 2" hiatal hernia. The stricture was about a size 40 and it was straight in line. Therefore, a Funez was chosen. A Davis 40 followed by Funez 46 was able to be advanced and the scope was able to be placed back in. it looked like it had done some good. It was stretched and expanded and there were no major signs of mechanical issue. There was a little light touch of blood here and there from the dilatation. No major tears. Certainly no perforations. Scope withdrawn. Lower Scope: Anal digital examination. The tone was a little decreased. Had mild rectal tone. There was lots of mucus in the lower 50 cm. above 50 cm, there was scant mucus. On the upper part of the exam, it was able to be moved along fairly readily. Base of the cecum, ileocecal valve. Appendiceal orifice not specifically seen, but the base of the cecum was seen and was normal. The ascending, hepatic, transverse, splenic, descending, sigmoid, rectum, and anus. No polyps noted today. PLAN: Follow-up 5 years.
== END ==
LOC: SDC 07:42
PROVIDERS: ATTEND Surgery
DX: Z12.11 Encounter for screening for malignant neoplasm of colon (principal); K21.9 Gastro-esophageal reflux disease without esophagitis; R10.13 Epigastric pain; R13.10 Dysphagia, unspecified; K44.9 Diaphragmatic hernia without obstruction or gangrene
CPT/HCPCS: 93005; 99100; J2250; J2704

== ENCOUNTER 2024-07-01 06:05 | Day surgery (SDC) | payer MEDICARE ==
[2024-07-01] MEDS: Decadron 4 MG PO ONE (06:23)
[2024-07-01] MEDS: celeBREX 100 MG PO ONE (06:23)
[2024-07-01] MEDS: TYLENOL EXTRA STRENGTH 500 MG PO ONE (06:23)
[2024-07-01] MEDS ORDERED: MARCAINE 0.25% PF/ EPI 1:200,000 ONE (06:24)
[2024-07-01] MEDS: Lactated Ringers 1,000 ML IV SCH (06:24)
[2024-07-01] MEDS: NEURONTIN PO ONE (06:24)
--- NOTE | 2024-07-01 06:59 | XRAY ---
CLINICAL HISTORY: pre op COMPARISON: None. TECHNIQUE: An X-ray image of the chest is obtained in AP projection. FINDINGS: Pulmonary Parenchyma: No focal consolidation or effusion. No pneumothorax. Chronic appearing linear interstitial prominence and hyperlucency are likely chronic in nature. Bilateral hyperinflated lungs. Heart and Mediastinum: Heart size and shape are normal. Aortic calcifications. No mediastinal widening or masses. No hilar or mediastinal lymphadenopathy. Bony Thorax: Bony thorax appears intact without fractures or deformities. Soft Tissues: Soft tissues overlying the chest wall are unremarkable. IMPRESSION: 1. No acute cardiopulmonary findings. 2. Emphysematous lungs. 3. Chronic chest findings are present. Electronically Signed by: Kavita Arzate MD. (07/01/2024 06:57:18 EDT)
[2024-07-01] MEDS ORDERED: TORAdol 30 mg Injection ONE (07:51)
[2024-07-01] MEDS ORDERED: Xylocaine-Mpf 2% 5 Ml Vial ONE (07:51)
[2024-07-01] MEDS ORDERED: Zofran 4 MG/2 ML VIAL ONE (07:51)
[2024-07-01] MEDS ORDERED: propofoL IV ONE (07:51)
[2024-07-01] MEDS ORDERED: SUBLIMAZE 100 MCG/2 ML ONE ×2 (07:51→09:59)
[2024-07-01] MEDS ORDERED: Amidate 20 MG/10 ML IV ONE (07:55)
[2024-07-01] MEDS: CLINDAMYCIN-D5W 600 MG/50 ML*** 600 MG/50 ML BAG IV SCH (08:03)
[2024-07-01] MEDS ORDERED: PHENYLEPHRINE HCL ONE (08:11)
[2024-07-01 10:54] VITALS: BP 126/65; O2SAT 97
[2024-07-01 11:14] VITALS: PULSE 59; RESP 18; TEMP 96.4
--- NOTE | 2024-07-02 11:03 | OP ---
SURGERY DATE/TIME: 07/01/2024 5134-4282 PREOPERATIVE DIAGNOSES: Torn right medial and lateral menisci, degenerative joint disease right knee. POSTOPERATIVE DIAGNOSES: Torn right medial and lateral menisci, degenerative joint disease right knee. PROCEDURE: Arthroscopy of the right knee with partial medial and lateral meniscectomies in a 3-compartment chondroplasty involving the patella trochlear groove, medial femoral condyle, and lateral femoral condyle SURGEON: Fareed Barbosa DO ANESTHESIA: General. DESCRIPTION OF PROCEDURE AND FINDINGS: The patient was identified, and informed consent was obtained. The patient was taken to the operative suite where she was placed into the supine position on the operating table, and a general anesthetic was administered. A tourniquet was placed high on the right thigh, and the right lower extremity was then placed into the knee mcmahon. The leg was then prepped and draped in the usual sterile fashion. A standard time out was taken. Following this, the leg was exsanguinated, and the tourniquet was elevated to 350 mmHg. A standard superomedial portal was created with an 11 blade, and trocar and cannula were placed in the joint. The joint was then distended with the arthroscopic pump. An inferolateral portal was then created, and the arthroscope was then placed in through a cannula. An 18-gauge spinal needle identified the level for the inferomedial portal which was also created with an 11 blade. The knee was inspected in a systematic fashion beginning in the suprapatellar pouch where there was some very mild reactive synovitis which was shaved. The undersurface of the patella and trochlear groove had grades 2 and 3 chondromalacia, and limited chondroplasty was performed as articular cartilage was quite friable. Care was taken to only trim back to remove any loose lapse of tissue. At this point, scope was placed into the medial compartment where the medial meniscus was noted to have a complex tear involving the middle and posterior horns. This was resected with the handheld biting instruments and then shaved to a smooth transition with the shaver. Chondroplasty was performed on the medial femoral condyle as the patient was noted to have grades 2 and 3 chondromalacia. The scope was placed into the intercondylar notch region where the patient's anterior cruciate ligament was noted to have an old partial thickness tear. The loose tissue was debrided. The scope was then placed into the lateral compartment where a complex tear involving the middle and posterior horns of the lateral meniscus was also encountered. This was resected with the handheld biting instruments and shaved to a smooth transition with the shaver. The patient also had some significant grades 2 and 3 chondromalacia in the lateral femoral condyle which was also contoured, and chondroplasty was performed. The knee was then reinspected. No further pathology was identified. The instrumentation was removed. Portal sites were closed with interrupted 4-0 nylon suture. The knee was infiltrated with 30 mL of 0.25% Marcaine with epinephrine into the joint and portal sites. Adaptics, 4 x 4's, and a standard postop arthroscopy dressing applied. The patient was transferred to the cart and taken to recovery room in satisfactory condition having tolerated the procedure well.
== END 2024-07-01 11:10 | disposition home or self-care (01) ==
LOC: SDC 06:05
PROVIDERS: ATTEND Orthopaedic Surgery
DX: S83.221A Peripheral tear of medial meniscus, current injury, right knee, initial encounter (principal); M25.561 Pain in right knee; M17.11 Unilateral primary osteoarthritis, right knee
CPT/HCPCS: 29880; 71045; 93005; J1885; J2371; J2405; J2704; J3010; A9270-GY

== ENCOUNTER 2024-12-04 13:40 | Emergency (ER) | payer MEDICARE ==
[2024-12-04 13:50] VITALS: TEMP 96.9; O2SAT 95
--- NOTE | 2024-12-04 13:51 | ERPHSYRPT ---
- History of Present Illness Time Seen by Provider: 12/04/24 13:41 Source: patient Physician History: This is a 79-year-old female who has been feeling weak progressively over the past several weeks. She has been under treatment for urinary tract infection which chart reviewed knowing that her culture on the 4 days ago grew up Proteus Mirabella's with figueroa sensitivity. She has been on antibiotics since early October 6 weeks ago. On Macrobid and Cipro and on her third round of antibiotics now. She denies any chest pain or shortness of breath. No cough. No fever or chills. No abdominal pain. No flank pain. Patient states occasionally she has some tingling in her fingers when she is holding a book reading, but no mental status changes. No verbal changes. No confusion. Patient also has a history of atrial fibrillation. Allergies/Adverse Reactions: metformin Allergy (Severe, Verified 12/04/24 13:56) Difficulty Breathing amoxicillin trihydrate [From Augmentin] Allergy (Verified 12/04/24 13:56) Hives Penicillins Allergy (Verified 12/04/24 13:56) Hives potassium clavulanate [From Augmentin] Allergy (Verified 12/04/24 13:56) Hives Sulfa (Sulfonamide Antibiotics) Allergy (Verified 12/04/24 13:56) Hives Home Medications: Cholecalciferol (Vitd3)/Vit K2 [D3 Plus K2 Dots 1,000 Unit Tab] 1 tab PO . EVERY OTHER WEEK 11/10/16 [History] Levothyroxine Sodium 25 Mcg [Synthroid 25 Mcg] 50 mcg PO DAILY 10/29/17 [History] Lorazepam 0.5 mg [Ativan 0.5 MG] 1 mg PO BID 04/15/22 [History] Cyanocobalamin (Vitamin B-12) [B-12] 1 tab PO DAILY 06/27/24 [History] Fluticasone Propionate 1 spray IN DAILY 06/27/24 [History] Pantoprazole Sodium 40 mg PO DAILY 06/27/24 [History] Potassium Chloride 10 meq PO BID 06/27/24 [History] Sennosides [Senna Lax] 3 tab PO HS 06/27/24 [History] Celecoxib [Celebrex] 200 mg PO DAILY 12/04/24 [History] Hx Tetanus, Diphtheria Vaccination/Date Given: Yes Hx Influenza Vaccination/Date Given: Yes Hx Pneumococcal Vaccination/Date Given: Yes - Review of Systems All Other Systems: Reviewed and Negative (As per HPI otherwise negative) - Past Medical History Pertinent Past Medical History: Yes Neurological History: No Pertinent History ENT History: Cataracts Cardiac History: Arrhythmia, Hypertension Respiratory History: Asthma, Sleep Apnea Endocrine Medical History: No Pertinent History Musculoskeletal History: Osteoarthritis GI Medical History: Hernia History: No Pertinent History Psycho-Social History: Anxiety Female Reproductive Disorders: No Pertinent History Other Medical History: PMH: ASTHMA- INHALER, HTN MED CONTROLLED. PSH: HYSTERECTOMY, SINUS SURGERIES - Past Surgical History Past Surgical History: Yes Neuro Surgical History: No Pertinent History Cardiac: No Pertinent History Respiratory: No Pertinent History Gastrointestinal: Appendectomy Genitourinary: No Pertinent History Musculoskeletal: No Pertinent History Female Surgical History: Hysterectomy, Tubal Ligation Other Surgical History: sinus surgery - Social History Exposure to second hand smoke: Yes - Nursing Vital Signs Nursing Vital Signs: Initial Vital Signs Temperature 96.9 F 12/04/24 13:48 Pulse Rate 95 H 12/04/24 13:48 Respiratory Rate 15 12/04/24 13:48 Blood Pressure 125/85 12/04/24 13:48 O2 Sat by Pulse Oximetry 95 12/04/24 13:48 Pain Scale Pain Intensity 3 - Physical Exam SpO2: 95 Comments: 12/04/24 14:06 General: Well-nourished well-developed. No apparent distress. HEENT: Normocephalic atraumatic no obvious facial or neck deformity or injury. Neck: Supple. No deformity or mass noted. CV: RRR NL Perfusion. No edema Resp: No Respiratory distress or adventitious breath sounds Abd: ND SNT MSK: No deformity or TTP Neuro: Alert and [place] x4. Cranial nerves II through XII intact. Pupils equal reactive and round to light. Extraocular motility intact.+5/5 motor throughout. Sensory intact. +2/4 DTRs throughout. No focal neurologic changes. NIH stroke scale 0 Psych: No SI, HI or grave disability Ordered Tests: Active Orders 24 hr Category Date Time Status EKG-ER Only STAT Care 12/04/24 14:00 Active ABDOMEN AND PELVIS W CONTRAST [CT] Stat Exams 12/04/24 14:00 Completed CHEST 1 VIEW (PORTABLE) Stat Exams 12/04/24 15:57 Completed HEAD WITHOUT CONTRAST [CT] Stat Exams 12/04/24 14:00 Completed Alcohol [ETHYL ALCOHOL] Stat Lab 12/04/24 14:00 Completed BNPII [NT PRO BNPII] Stat Lab 12/04/24 14:00 Completed CBC W DIFF Stat Lab 12/04/24 14:00 Completed CMP Stat Lab 12/04/24 14:00 Completed CULTURE,URINE Stat Lab 12/04/24 15:20 Received Lactic Acid Stat Lab 12/04/24 14:01 Completed MAGNESIUM Stat Lab 12/04/24 14:00 Completed TROPONIN Stat Lab 12/04/24 14:00 Completed TSH, 3RD Generation Stat Lab 12/04/24 14:00 Completed UA W/RFX UR CULTURE Stat Lab 12/04/24 15:20 Completed Urine Triage Profile Stat Lab 12/04/24 15:06 Completed Lab/Rad Data: Laboratory Result Diagrams 12/04/24 14:00 12/04/24 14:00 Laboratory Results 12/04/24 12/04/24 12/04/24 Range/Units 15:20 15:06 14:01 WBC (3.98-10.04) x10^3/uL RBC (3.93-5.22) x10^6/uL Hgb (11.2-15.7) g/dL Hct (34.1-44.9) % MCV (79.4-94.8) fL MCH (25.6-32.2) pg MCHC (32.2-35.5) g/dL RDW (11.7-14.4) % Plt Count (182-369) x10^3/uL MPV (9.4-12.3) fL Gran % (34.0-71.1) % Immature Gran % (Auto) (0.001-0.429) % Nucleat RBC Rel Count (0.00-0.2) % Eos # (Auto) (0.04-0.36) x10^3/uL Immature Gran # (Auto) (0.001-0.031) x10^3u/L Absolute Lymphs (auto) (1.18-3.74) x10^3/uL Absolute Monos (auto) (0.24-0.86) x10^3/uL Absolute Nucleated RBC (0.00-0.012) x10^3u/L Lymphocytes % (19.3-51.7) % Monocytes % (4.7-12.5) % Eosinophils % (0.7-5.8) % Basophils % (0.1-1.2) % Absolute Granulocytes (1.56-6.13) x10^3/uL Basophils # (0.01-0.08) x10^3/uL Sodium (135-145) mmol/L Potassium (3.5-5.1) mmol/L Chloride (98-107) mmol/L Carbon Dioxide (22-30) mmol/L Anion Gap (5-15) MEQ/L BUN (7-17) mg/dL Creatinine (0.52-1.04) mg/dL Estimated GFR ML/MIN Glucose (74-106) mg/dL Lactic Acid 1.1 (0.4-2.0) Calcium (8.4-10.2) mg/dL Magnesium (1.6-2.3) mg/dL Total Bilirubin (0.2-1.3) mg/dL AST (14-36) U/L ALT (0-35) U/L Alkaline Phosphatase (38-126) U/L Troponin I (0.000-0.033) ng/mL NT-Pro-B Natriuret Pep (<300) pg/mL Serum Total Protein (6.3-8.2) g/dL Albumin (3.5-5.0) g/dL TSH 3rd Generation (0.470-4.680) mIU/L Urine Color Yellow (Yellow) Urine Appearance Clear (Clear) Urine pH 5.5 (4.6-8.0) Ur Specific [place] 1.015 (1.005-1.030) Urine Protein Negative (Negative) Urine Glucose (UA) Negative (Negative) mg/dL Urine Ketones Negative (Negative) Urine Blood Negative (Negative) Urine Nitrite Negative (Negative) Urine Bilirubin Negative (Negative) Urine Urobilinogen 0.2 (0.2) mg/dL Ur Leukocyte Esterase Negative (Negative) U Hyaline Cast (Auto) NONE SEEN (0-2) /LPF Urine Microscopic RBC 0-2 (0-5) /HPF Urine Microscopic WBC 0-2 (0-5) /HPF Ur Epithelial Cells None Seen (None Seen) /HPF Urine Bacteria None Seen (None Seen) /HPF Urine Culture Reflexed ORDERED SEPARATELY (NO) Urine Opiates Level NEGATIVE (NEGATIVE) Ur Methadone NEGATIVE (NEGATIVE) Urine Barbiturates NEGATIVE (NEGATIVE) Ur Phencyclidine (PCP) NEGATIVE (NEGATIVE) Urine Amphetamine NEGATIVE (NEGATIVE) U Benzodiazepine Level NEGATIVE (NEGATIVE) Urine Cocaine NEGATIVE (NEGATIVE) Urine Marijuana (THC) NEGATIVE (NEGATIVE) Ethyl Alcohol (0-10) mg/dL 12/04/24 12/04/24 12/04/24 Range/Units 14:00 14:00 14:00 WBC 8.0 (3.98-10.04) x10^3/uL RBC 5.34 H (3.93-5.22) x10^6/uL Hgb 15.0 (11.2-15.7) g/dL Hct 46.3 H (34.1-44.9) % MCV 86.7 (79.4-94.8) fL MCH 28.1 (25.6-32.2) pg MCHC 32.4 (32.2-35.5) g/dL RDW 13.1 (11.7-14.4) % Plt Count 347 (182-369) x10^3/uL MPV 10.3 (9.4-12.3) fL Gran % 62.6 (34.0-71.1) % Immature Gran % (Auto) 0.2 (0.001-0.429) % Nucleat RBC Rel Count 0.0 (0.00-0.2) % Eos # (Auto) 0.10 (0.04-0.36) x10^3/uL Immature Gran # (Auto) 0.02 (0.001-0.031) x10^3u/L Absolute Lymphs (auto) 1.99 (1.18-3.74) x10^3/uL Absolute Monos (auto) 0.86 (0.24-0.86) x10^3/uL Absolute Nucleated RBC 0.00 (0.00-0.012) x10^3u/L Lymphocytes % 24.8 (19.3-51.7) % Monocytes % 10.7 (4.7-12.5) % Eosinophils % 1.2 (0.7-5.8) % Basophils % 0.5 (0.1-1.2) % Absolute Granulocytes 5.02 (1.56-6.13) x10^3/uL Basophils # 0.04 (0.01-0.08) x10^3/uL Sodium 131 L (135-145) mmol/L Potassium 3.9 (3.5-5.1) mmol/L Chloride 98 (98-107) mmol/L Carbon Dioxide 24 (22-30) mmol/L Anion Gap 12.9 (5-15) MEQ/L BUN 29 H (7-17) mg/dL Creatinine 0.65 (0.52-1.04) mg/dL Estimated GFR 90.6 ML/MIN Glucose 106 (74-106) mg/dL Lactic Acid (0.4-2.0) Calcium 9.3 (8.4-10.2) mg/dL Magnesium 2.2 (1.6-2.3) mg/dL Total Bilirubin 0.40 (0.2-1.3) mg/dL AST 23 (14-36) U/L ALT 16 (0-35) U/L Alkaline Phosphatase 138 H (38-126) U/L Troponin I < 0.012 (0.000-0.033) ng/mL NT-Pro-B Natriuret Pep 25.1 (<300) pg/mL Serum Total Protein 6.5 (6.3-8.2) g/dL Albumin 4.3 (3.5-5.0) g/dL TSH 3rd Generation 3.821 (0.470-4.680) mIU/L Urine Color (Yellow) Urine Appearance (Clear) Urine pH (4.6-8.0) Ur Specific [place] (1.005-1.030) Urine Protein (Negative) Urine Glucose (UA) (Negative) mg/dL Urine Ketones (Negative) Urine Blood (Negative) Urine Nitrite (Negative) Urine Bilirubin (Negative) Urine Urobilinogen (0.2) mg/dL Ur Leukocyte Esterase (Negative) U Hyaline Cast (Auto) (0-2) /LPF Urine Microscopic RBC (0-5) /HPF Urine Microscopic WBC (0-5) /HPF Ur Epithelial Cells (None Seen) /HPF Urine Bacteria (None Seen) /HPF Urine Culture Reflexed (NO) Urine Opiates Level (NEGATIVE) Ur Methadone (NEGATIVE) Urine Barbiturates (NEGATIVE) Ur Phencyclidine (PCP) (NEGATIVE) Urine Amphetamine (NEGATIVE) U Benzodiazepine Level (NEGATIVE) Urine Cocaine (NEGATIVE) Urine Marijuana (THC) (NEGATIVE) Ethyl Alcohol < 10 (0-10) mg/dL EKG 1458 normal sinus rhythm 83 bpm. No ischemic changes. - Progress Progress Note: 12/04/24 15:55 Laboratory studies including urinalysis normal. Awaiting CT abdomen pelvis. At this time no acute findings. 12/04/24 17:00 No acute findings. Patient feels well. States no further weakness. Apparently by history, patient has been having stress over the sell of her home and there have been social issues dealing with her [place] [facility]. She has no depression or suicidality that she discusses or admits to. She states she is safe and does have a boyfriend who lives in the area. Boyfriend will pick her up. At this time she is medically cleared. All questions were answered. Precautions given. The patient's condition was discussed with themselves and/or family members in great detail. Precautions are given and need to return or call 911 immediately for any changes or worsening are discussed. Instructions on patient's condition and noting that conditions can change or worsen and that diagnosis are presumptive and can evolve are discussed. All questions were answered. All concerns addressed at this time 12/04/24 17:02 - Departure Departure Disposition: Home Clinical Impression: Weakness Condition: Stable Critical Care Time: No Referrals: SANTINO YUEN MD [Primary Care Provider, [facility]] - Follow up/PCP as directed Instructions: Weakness - ED discharge instructions Additional Instructions: You have been evaluated for an emergency medical condition. At this time, given the current history and events presented, the examination conducted and any possible testing you may have had, you have been given a presumptive diagnosis based on the current information is obtained. Your discharge diagnosis is presumptive and not necessarily definitive. Medical conditions present in various stages very often without all the symptoms or findings described in medical literature. Other symptoms, concerns or conditions may arise and your diagnoses may evolve or change and/or your condition could potentially worsen after the time of disposition or discharge. You have been given a presumptive diagnosis and your condition appears to be stable, but your medical issues can change or worsen. If there is worsening of your condition including difficulty breathing, swallowing, speaking, chest pain or pressure, intractable vomiting, worsening or changing mental status, numbness, tingling or weakness of your body or arms or legs, thoughts or plans of harming yourself or others, or any other concerns, call 911 and/or return immediately to the closest emergency department. It is important you follow-up with your doctor on the next business day. Call your doctor, or the referral provided if you do not have a doctor, when they open to schedule a follow-up appointment in the next 1 or latest 2 days. Please refer to the attached sheet. If you do not have primary care doctor, you can call the [facility] referral line at [phone]. Return immediately if your symptoms worsen or if you are unable to obtain further care. My team and I thank you for choosing the [facility] Emergency Department emergency healthcare needs. We wish you a speedy recovery. Very respectfully, Dr. Rancho Gill M.D. [place] [employer] Board-certified Emergency Physician
[2024-12-04 14:13] LABS: BASOPHIL % 0.5 % (0.1-1.2); Basophil (Absolute #) 0.04 x10^3/uL (0.01-0.08); Eosinophil (Absolute #) 0.10 x10^3/uL (0.04-0.36); Hematocrit 46.3 % (34.1-44.9); Hemoglobin 15.0 g/dL (11.2-15.7); IMMATURE GRAN # 0.02 x10^3u/L (0.001-0.031); IMMATURE GRAN % 0.2 % (0.001-0.429); Lymphocyte (Absolute #) 1.99 x10^3/uL (1.18-3.74); Mean Corpuscular Hemoglobin 28.1 pg (25.6-32.2); Mean Corpuscular Hgb Concent. 32.4 g/dL (32.2-35.5); Monocyte (Absolute #) 0.86 x10^3/uL (0.24-0.86); NUCLEATED RBC # 0.00 x10^3u/L (0.00-0.012); NUCLEATED RBC % 0.0 % (0.00-0.2); Platelet Count 347 x10^3/uL (182-369); Red Blood Count 5.34 x10^6/uL (3.93-5.22); White Blood Count 8.0 x10^3/uL (3.98-10.04)
[2024-12-04 14:57] LABS: Calcium 9.3 mg/dL (8.4-10.2); Carbon Dioxide 24 mmol/L (22-30); Creatinine 1 0.65 mg/dL (0.52-1.04); EST GLOMERULAR FILTRATION RATE 90.6 ML/MIN; ETHYL ALCOHOL < 10 mg/dL (0-10); Glucose 106 mg/dL (74-106); NT PRO BNPII 25.1 pg/mL (<300); Potassium 3.9 mmol/L (3.5-5.1); SGOT/AST 23 U/L (14-36); SGPT/ALT 16 U/L (0-35); Total Protein 6.5 g/dL (6.3-8.2)
[2024-12-04 15:34] LABS: Glucose, Urine Negative (Negative); Protein,Urine Dip Negative (Negative); RBC 0-2 /HPF (0-5); WBC 0-2 /HPF (0-5)
[2024-12-04 15:56] LABS: Amphetamine,Urine NEGATIVE (NEGATIVE); Barbiturate,Urine NEGATIVE (NEGATIVE); Benzodiazepine,Urine NEGATIVE (NEGATIVE); Cocaine,Urine NEGATIVE (NEGATIVE); Methadone,Urine NEGATIVE (NEGATIVE); Opiate,Urine NEGATIVE (NEGATIVE); PCP,Urine NEGATIVE (NEGATIVE); THC,Urine NEGATIVE (NEGATIVE)
--- NOTE | 2024-12-04 16:32 | XRAY ---
Indication: Weakness. Numbness. Tingling. Multiple contiguous axial images obtained through the head without contrast. Comparison: None Age-appropriate global atrophy and minimal periventricular degenerative microischemia. Remote lacunar infarct right external capsule. No acute intracranial hemorrhage, abnormal extra-axial fluid collection, or mass effect. 4th ventricle is midline without hydrocephalus. Dubose-white matter differentiation preserved. Bony calvarium intact. Visualized paranasal sinuses and mastoid air cells are clear. Impression: Nonacute senile brain with remote lacunar infarct right external capsule.
--- NOTE | 2024-12-04 16:36 | XRAY ---
Indication: Abdominal pain. Frequent UTI. Multiple contiguous axial images obtained through the abdomen and pelvis using 80 cc Isovue 370 contrast as ordered. Comparison: November 08, 2020 Lung bases again demonstrates mild dependent atelectasis and tiny left lower lobe calcified granuloma. Heart not enlarged. New small hiatal hernia. Noncontrasted stomach and bowel loops appear nonobstructed again with minimal sigmoid diverticulosis. There is now mild diffuse colonic diarrhea. Again splenic calcified granuloma, appendectomy, and hysterectomy. No free fluid/air. Remaining liver, gallbladder, pancreas, spleen, adrenal glands, kidneys, ureters, and bladder are unremarkable. Again minimal aortoiliac calcifications. No AAA or pathologic retroperitoneal lymphadenopathy. Osseous structures intact again with osteopenia and minimal degenerative changes throughout spine. Stable small fatty umbilical hernia. Impression: 1. New small hiatal hernia and mild diffuse colonic diarrhea. 2. Again chronic findings including sigmoid diverticulosis, chronic bony findings, fatty umbilical hernia, and old granulomatous disease. 3. Remaining CT abdomen/pelvis with contrast exam is negative.
--- NOTE | 2024-12-04 16:38 | XRAY ---
Indication: Cough. Comparison: July 01, 2024 Portable chest remains hyperinflated with faint bilateral mid to lower lung fibrosis/scarring. No focal infiltrate, consolidation, or large effusion. Heart not enlarged again with tortuous descending aorta. Bony thorax intact again with osteopenia and minimal degenerative changes. Impression: Continued nonacute hyperinflated chest with chronic features.
[2024-12-04 17:34] VITALS: BP 125/88; PULSE 82; RESP 20
== END 2024-12-04 17:35 | disposition home or self-care (01) ==
LOC: ED 13:40
DX: R53.1 Weakness (principal); I10 Essential (primary) hypertension; Z79.899 Other long term (current) drug therapy